=== PATIENT | female | born 1940 | race Caucasian/White ===

== ENCOUNTER → 2016-08-14 | Outpatient (CLI) | payer MEDICARE, BC ==
[2016-08-14 10:18] LABS: CHLORIDE,CL 105 mmol/L (98-110); SODIUM,NA 138 mmol/L (136-146)
== END ==
LOC: MW.CHIM 09:27
PROVIDERS: ATTEND Internal Medicine
DX: E78.5 Hyperlipidemia, unspecified (principal); E03.9 Hypothyroidism, unspecified; M81.0 Age-related osteoporosis without current pathological fracture; I38 Endocarditis, valve unspecified; E55.9 Vitamin D deficiency, unspecified
CPT/HCPCS: 36415; 80053; 80061; 82652; 84439; 84443; 85025

== ENCOUNTER → 2016-08-18 | Outpatient (CLI) | payer MEDICARE, BC | LOC: MW.CHIM 08:00 | PROVIDERS: ATTEND Internal Medicine | DX: E78.5 Hyperlipidemia, unspecified (principal); E03.9 Hypothyroidism, unspecified; M19.049 Primary osteoarthritis, unspecified hand; E67.3 Hypervitaminosis D | CPT/HCPCS: 99214 ==

== ENCOUNTER → 2016-09-22 | Outpatient (CLI) | payer MEDICARE, BC | LOC: MW.CHFP 08:00 | PROVIDERS: ATTEND Internal Medicine | DX: M81.0 Age-related osteoporosis without current pathological fracture (principal) | CPT/HCPCS: 96372; J0897 ==

== ENCOUNTER 2021-02-17 21:42 | Inpatient (IN) | payer MEDICARE, BC ==
[2021-02-17] MEDS ORDERED: Sodium Chloride 0.9% 2.5 ML Syringe FLUSH PRN (22:35)
[2021-02-17] MEDS ORDERED: Sodium Chloride 0.9% 10 ML Syringe FLUSH PRN (22:35)
[2021-02-17] MEDS ORDERED: Dexamethasone 10 MG/ML SDV IVPUSH ONE (22:35)
[2021-02-17] MEDS ORDERED: REMDESIVIR 200 MG in Sodium Chloride 0.9% 250 ML IV ONE (22:37)
[2021-02-17] MEDS ORDERED: Acetaminophen 325 MG Tab PO ONE (22:52)
[2021-02-17] MEDS ORDERED: Lactated Ringers 1,000 ML IV SCH (23:00)
[2021-02-17 23:22] LABS: BLOOD UREA NITROGEN,BUN 11 mg/dL (7.0-18.0); CARBON DIOXIDE,CO2 25.1 mmol/L (21.0-32.0); CHLORIDE,CL 96 mmol/L (98-107); GLUCOSE RANDOM 143 mg/dL (74-106); POTASSIUM,K 3.7 mmol/L (3.5-5.1); SODIUM,NA 135 mmol/L (136-145)
[2021-02-17] MEDS ORDERED: Iopamidol 755 Mg/ML 100 ML Bottle IVPUSH ONE (23:50)
--- NOTE | 2021-02-18 01:25 | CT ---
INDICATION: Shortness of breath. COVID-19 positive. COMPARISON: None available TECHNIQUE: CT examination of the chest was performed with the uneventful intravenous administration of 100 cc of Isovue 370 while 1 and 1.5 mm thick axial sections were obtained through the pulmonary arteries. Please note that all CT scans at this facility use dose modulation, iterative reconstruction, and/or weight-based dosing when appropriate to reduce radiation dose to as low as reasonably achievable. FINDINGS: : There is no sign of pulmonary embolism, with normal enhancement and branching of the pulmonary arteries. There are large, confluent, peripheral, ground-glass pulmonary infiltrates rather uniformly distributed throughout both lungs, typical of prominent COVID-19 pneumonia. There is somewhat denser consolidation in the posterior inferior lower lobes bilaterally, atelectasis versus superinfection from bacterial pneumonia. There is no sign of mediastinal or hilar mass or adenopathy. There is mild LAD coronary calcification. The heart is otherwise normal in appearance for the patient`s age. There is age appropriate appearance of the thoracic aorta and ascending great vessels. There is no sign of supraclavicular or axillary mass or adenopathy. There is a moderate-sized hiatal hernia. The visualized superior liver, spleen, pancreas, kidneys, and adrenals are normal in appearance. There is mild scoliosis of the mid thoracic spine convex towards the right. There is increased AP chest diameter related to increased kyphosis of the thoracic spine. IMPRESSION: No sign of pulmonary embolism. Prominent COVID-19 pneumonia with extensive, confluent, peripheral ground-glass infiltrates. Moderate-sized hiatal hernia. Please note that all CT scans at this facility use dose modulation, iterative reconstruction, and/or weight-based dosing when appropriate to reduce radiation dose to as low as reasonably achievable. Dictated by Dexter Rapp MD @ 02/18/2021 1:24:05 AM (Electronically Signed)
--- NOTE | 2021-02-18 01:25 | EDM.PDOC ---
ED HPI GENERAL MEDICAL PROBLEM - General Chief Complaint: Respiratory Problem Stated Complaint: COVID COMPLICATIONS Time Seen by Provider: 02/17/21 22:35 - History of Present Illness INITIAL COMMENTS - FREE TEXT/NARRATIVE: HISTORY AND PHYSICAL: History of present illness: This an 80-year-old female with no significant past medical history except for hypercholesterolemia and hypothyroid who presents to the ER today secondary to shortness of breath noted by her family. Patient was recently diagnosed approximately 5 days ago with coronavirus secondary to generalized weakness, decreased p.o. intake and loss of taste and smell. Patient reports that she has been feeling weak and tired and today she was brought into the ER secondary to her family's concern that she was more short of breath than usual. Patient reports that she feels slightly more short of breath than she normally does. Patient reports she has had no fevers, shakes, chills. She had nausea with no vomiting or diarrhea. Patient has any dysuria, frequency, urgency, chest pain, abdominal pain. Patient has any swelling to her upper or lower extremities. Patient denies any chest pressure or discomfort. Review of systems: As per history of present illness and below otherwise all systems reviewed and negative. Past medical history: As per history of present illness and as reviewed below otherwise noncontributory. Surgical history: As per history of present illness and as reviewed below otherwise noncontributory. Social history: No reported history of drug abuse. Family history: As per history of present illness and as reviewed below otherwise noncontributory. Physical exam: This patient was seen and evaluated during the 2019 SARS-CoV-2 novel coronavirus pandemic period. Community viral transmission is ongoing at time of this en counter and the emergency department is operating under pandemic response procedures. Constitutional: Patient is oriented to person, place, and time. Appears well- developed and well-nourished. No distress. HEENT: Dry mucous membranes Head: Normocephalic and atraumatic Eyes: Right eye exhibits no discharge. Left eye exhibits no discharge. No scleral icterus Neck: Normal range of motion. No tracheal deviation present. Cardiovascular: Normal rate and regular rhythm. Pulmonary: Effort normal, no respiratory distress. Abdominal: No distention Musculoskeletal: Normal range of motion Neurologic: Alert and oriented to person, place and time. Skin: Erhard, warm and dry. Psychiatric: Normal mood and affect. Behavior is normal. Judgment and thought content normal. Nursing note and vital signs have been reviewed Patient's temperature oral was 100.7. Diagnostics: Covid positive in the ED CBC, CMP, troponin within normal limits. CTA of chest: EKG: February 17, 2021 10:27 PM As interpreted by ER physician: Liu: Nonspecific ST-T wave abnormalities Normal axis No evidence of ST elevation NE Normal sinus rhythm heart rate of 100 Therapeutics: NSS x1 L secondary to extremely dry mucous membranes Assessment and plan: 80-year-old female who presents ER today after being diagnosed with Covid approximately 4 days ago secondary to increased shortness of breath is witnessed by family. Upon arrival to the ED the patient's pulse ox was 84 to 86% on room air. On 2 L of nasal cannula, the patient's pulse ox is up to 93 to 95%. Patient is febrile here in the ER with a temperature of 100.7. Patient's Covid test is positive here in the ER. Patient's labs are all within normal limits. Patient was given 1 L of NSS secondary to the presentation of severe dehydration which is likely secondary to decreased p.o. intake from her nausea and decreased appetite and loss of taste. Patient has also been given a dose of remdesivir and Decadron here in the ED and will need to be admitted for supplemental O2 and treatment with remdesivir. CTA of her chest obtained secondary to her low oxygen level L PE and pneumonia. Definitive disposition and diagnosis as appropriate pending reevaluation and review of above. - Related Data Allergies Allergy/AdvReac Type Severity Reaction Status Date / Time No Known Allergies Allergy Verified 08/14/13 09:23 Home Meds: Home Meds Aspirin 81 mg PO DAILY 02/17/21 [History] Levothyroxine 75 mcg PO ACBREAKFAST 02/17/21 [History] Lovastatin 40 mg PO DAILY 02/17/21 [History] Past Medical History Cardiovascular History: Reports: High Cholesterol, Hypertension [employer] History: Reports: Musculoskeletal History: Reports: Arthritis Social & Family History - Tobacco Use Tobacco Use Status *Q: Never Tobacco User Second Hand Smoke Exposure: No - Recreational Drug Use Recreational Drug Use: No ED ROS GENERAL - Review of Systems Review Of Systems: See Below ED EXAM, GENERAL - Physical Exam Exam: See Below Course - Vital Signs Last Recorded V/S: Last Vital Signs Temp 98.2 F 02/17/21 23:28 Pulse 91 02/18/21 01:23 Resp 20 02/18/21 01:23 BP 126/55 L 02/18/21 01:23 Pulse Ox 93 L 02/18/21 01:23 - Orders/Labs/Meds Orders: Active Orders 24 hr Category Date Time Status Patient Status [ADT] Routine ADT 02/18/21 01:29 Active BILIRUBIN DIRECT [CHEM] DAILY Lab 02/19/21 22:45 Ordered BILIRUBIN DIRECT [CHEM] DAILY Lab 02/20/21 22:45 Ordered BILIRUBIN DIRECT [CHEM] DAILY Lab 02/21/21 22:45 Ordered COMPREHENSIVE METABOLIC PN,CMP [CHEM] DAILY Lab 02/19/21 22:45 Ordered COMPREHENSIVE METABOLIC PN,CMP [CHEM] DAILY Lab 02/20/21 22:45 Ordered COMPREHENSIVE METABOLIC PN,CMP [CHEM] DAILY Lab 02/21/21 22:45 Ordered UA RFX JUANA AND CULT IF INDIC [URIN] Stat Lab 02/18/21 01:20 Received Lactated Ringers [Ringers, Lactated] 1,000 ml Med 02/17/21 23:00 Active IV .BOLUS Sodium Chloride 0.9% [Saline Flush] Med 02/17/21 22:35 Active 10 ml FLUSH ASDIRECTED PRN Sodium Chloride 0.9% [Saline Flush] Med 02/17/21 22:35 Active 2.5 ml FLUSH ASDIRECTED PRN Isolation [COMM] Routine Oth 02/17/21 22:36 Active Saline Lock Insert [OM.PC] Stat Oth 02/17/21 22:35 Ordered Medication Orders Lactated Ringer's (Ringers, Lactated) 1,000 mls @ 999 mls/hr IV .BOLUS MONIQUE Last Admin: 02/17/21 22:59 Dose: 999 mls/hr Documented by: CAROLINE Sodium Chloride (Sodium Chloride 0.9% 10 Ml Syringe) 10 ml FLUSH ASDIRECTED PRN PRN Reason: Keep Vein Open Last Admin: 02/17/21 22:52 Dose: 10 ml Documented by: CAROLINE Sodium Chloride (Sodium Chloride 0.9% 2.5 Ml Syringe) 2.5 ml FLUSH ASDIRECTED PRN PRN Reason: Keep Vein Open Last Admin: 02/17/21 22:53 Dose: 2.5 ml Documented by: CAROLINE Labs: Laboratory Tests 02/17/21 02/17/21 02/17/21 Range/Units 22:23 22:41 22:41 WBC 8.47 (4.0-11.0) K/uL RBC 4.63 (4.30-5.90) M/uL Hgb 14.6 (12.0-16.0) g/dL Hct 41.3 (36.0-46.0) % MCV 89.2 (80.0-98.0) fL MCH 31.5 (27.0-32.0) pg MCHC 35.4 (31.0-37.0) g/dL RDW Std Deviation 45.6 (28.0-62.0) fl RDW Coeff of Lorelei 14 (11.0-15.0) % Plt Count 204 (150-400) K/uL MPV 9.60 (7.40-12.00) fL Neut % (Auto) 80.9 H (48.0-80.0) % Lymph % (Auto) 11.5 L (16.0-40.0) % Bacon % (Auto) 7.4 (0.0-15.0) % Eos % (Auto) 0.0 (0.0-7.0) % Baso % (Auto) 0.2 (0.0-1.5) % Neut # (Auto) 6.9 H (1.4-5.7) K/uL Lymph # (Auto) 1.0 (0.6-2.4) K/uL Bacon # (Auto) 0.6 (0.0-0.8) K/uL Eos # (Auto) 0.0 (0.0-0.7) K/uL Baso # (Auto) 0.0 (0.0-0.1) K/uL Nucleated RBC % 0.0 /100WBC Nucleated RBCs # 0 K/uL Sodium (136-145) mmol/L Potassium (3.5-5.1) mmol/L Chloride (98-107) mmol/L Carbon Dioxide (21.0-32.0) mmol/L BUN (7.0-18.0) mg/dL Creatinine (0.6-1.0) mg/dL Est Cr Clr Drug Dosing mL/min Estimated GFR (MDRD) ml/min Glucose (74-106) mg/dL Calcium (8.5-10.1) mg/dL Total Bilirubin (0.2-1.0) mg/dL Direct Bilirubin (0.0-0.5) mg/dL AST (15-37) IU/L ALT (14-63) IU/L Alkaline Phosphatase (46-116) U/L Troponin I < 0.050 (0.000-0.056) ng/mL Total Protein (6.4-8.2) g/dL Albumin (3.4-5.0) g/dL Globulin (2.6-4.0) g/dL Albumin/Globulin Ratio (0.9-1.6) SARS-CoV-2 RNA (BRE) POSITIVE H (NEGATIVE) 02/17/21 Range/Units 22:41 WBC (4.0-11.0) K/uL RBC (4.30-5.90) M/uL Hgb (12.0-16.0) g/dL Hct (36.0-46.0) % MCV (80.0-98.0) fL MCH (27.0-32.0) pg MCHC (31.0-37.0) g/dL RDW Std Deviation (28.0-62.0) fl RDW Coeff of Lorelei (11.0-15.0) % Plt Count (150-400) K/uL MPV (7.40-12.00) fL Neut % (Auto) (48.0-80.0) % Lymph % (Auto) (16.0-40.0) % Bacon % (Auto) (0.0-15.0) % Eos % (Auto) (0.0-7.0) % Baso % (Auto) (0.0-1.5) % Neut # (Auto) (1.4-5.7) K/uL Lymph # (Auto) (0.6-2.4) K/uL Bacon # (Auto) (0.0-0.8) K/uL Eos # (Auto) (0.0-0.7) K/uL Baso # (Auto) (0.0-0.1) K/uL Nucleated RBC % /100WBC Nucleated RBCs # K/uL Sodium 135 L (136-145) mmol/L Potassium 3.7 (3.5-5.1) mmol/L Chloride 96 L (98-107) mmol/L Carbon Dioxide 25.1 (21.0-32.0) mmol/L BUN 11 (7.0-18.0) mg/dL Creatinine 0.7 (0.6-1.0) mg/dL Est Cr Clr Drug Dosing 49.85 mL/min Estimated GFR (MDRD) > 60.0 ml/min Glucose 143 H (74-106) mg/dL Calcium 7.6 L (8.5-10.1) mg/dL Total Bilirubin 0.9 (0.2-1.0) mg/dL Direct Bilirubin 0.30 (0.0-0.5) mg/dL AST 168 H (15-37) IU/L ALT 110 H (14-63) IU/L Alkaline Phosphatase 41 L (46-116) U/L Troponin I (0.000-0.056) ng/mL Total Protein 6.3 L (6.4-8.2) g/dL Albumin 2.8 L (3.4-5.0) g/dL Globulin 3.5 (2.6-4.0) g/dL Albumin/Globulin Ratio 0.8 L (0.9-1.6) SARS-CoV-2 RNA (BRE) (NEGATIVE) Meds: Medications Generic Name Dose Route Start Last Admin Trade Name Freq PRN Reason Stop Dose Admin Lactated Ringer's 1,000 mls @ 999 mls/hr 02/17/21 23:00 02/17/21 22:59 Ringers, Lactated IV 999 mls/hr .BOLUS MONIQUE Administration Sodium Chloride 10 ml 02/17/21 22:35 02/17/21 22:52 Sodium Chloride 0.9% 10 Ml Syringe FLUSH 10 ml ASDIRECTED PRN Administration Keep Vein Open Sodium Chloride 2.5 ml 02/17/21 22:35 02/17/21 22:53 Sodium Chloride 0.9% 2.5 Ml Syringe FLUSH 2.5 ml ASDIRECTED PRN Administration Keep Vein Open Discontinued Medications Generic Name Dose Route Start Last Admin Trade Name Freq PRN Reason Stop Dose Admin Acetaminophen 650 mg 02/17/21 22:52 02/17/21 22:58 Acetaminophen 325 Mg Tab PO 02/17/21 22:53 650 mg NOW ONE Administration Dexamethasone 10 mg 02/17/21 22:35 02/17/21 22:57 Dexamethasone 10 Mg/Ml Sdv IVPUSH 02/17/21 22:36 10 mg ONETIME ONE Administration Remdesivir 200 mg/ Sodium 250 mls @ 250 mls/hr 02/17/21 22:37 02/17/21 23:15 Chloride IV 02/17/21 22:38 250 mls/hr ONETIME ONE Administration Iopamidol 100 ml 02/17/21 23:50 02/18/21 00:44 Iopamidol 755 Mg/Ml 100 Ml Bottle IVPUSH 02/17/21 23:51 100 ml ONETIME ONE Administration Departure - Departure Time of Disposition: 01:25 Disposition: Admitted As Inpatient 65 Condition: Good Clinical Impression: Pneumonia due to COVID-19 virus, Respiratory failure with hypoxia, Dehydration - Discharge Information [facility] - Forms: ED Department Discharge Sepsis Event Note (ED) - Evaluation Sepsis Screening Result: No Definite Risk - Focused Exam Vital Signs: Vital Signs Temp Temp Pulse Resp BP Pulse Ox 02/18/21 01:23 91 20 126/55 L 93 L 02/17/21 23:28 98.2 F 02/17/21 22:58 100.9 F H 02/17/21 22:12 97.7 F 101 H 20 133/52 L 94 L - My Orders Last 24 Hours: My Active Orders 02/17/21 22:35 Sodium Chloride 0.9% [Saline Flush] 10 ml FLUSH ASDIRECTED PRN Sodium Chloride 0.9% [Saline Flush] 2.5 ml FLUSH ASDIRECTED PRN Saline Lock Insert [OM.PC] Stat 02/17/21 22:36 Isolation [COMM] Routine 02/17/21 23:00 Lactated Ringers [Ringers, Lactated] 1,000 ml IV .BOLUS 02/18/21 01:20 UA RFX JUANA AND CULT IF INDIC [URIN] Stat 02/18/21 01:29 Patient Status [ADT] Routine 02/19/21 22:45 BILIRUBIN DIRECT [CHEM] DAILY COMPREHENSIVE METABOLIC PN,CMP [CHEM] DAILY 02/20/21 22:45 BILIRUBIN DIRECT [CHEM] DAILY COMPREHENSIVE METABOLIC PN,CMP [CHEM] DAILY 02/21/21 22:45 BILIRUBIN DIRECT [CHEM] DAILY COMPREHENSIVE METABOLIC PN,CMP [CHEM] DAILY - Assessment/Plan Last 24 Hours: My Active Orders 02/17/21 22:35 Sodium Chloride 0.9% [Saline Flush] 10 ml FLUSH ASDIRECTED PRN Sodium Chloride 0.9% [Saline Flush] 2.5 ml FLUSH ASDIRECTED PRN Saline Lock Insert [OM.PC] Stat 02/17/21 22:36 Isolation [COMM] Routine 02/17/21 23:00 Lactated Ringers [Ringers, Lactated] 1,000 ml IV .BOLUS 02/18/21 01:20 UA RFX JUANA AND CULT IF INDIC [URIN] Stat 02/18/21 01:29 Patient Status [ADT] Routine 02/19/21 22:45 BILIRUBIN DIRECT [CHEM] DAILY COMPREHENSIVE METABOLIC PN,CMP [CHEM] DAILY 02/20/21 22:45 BILIRUBIN DIRECT [CHEM] DAILY COMPREHENSIVE METABOLIC PN,CMP [CHEM] DAILY 02/21/21 22:45 BILIRUBIN DIRECT [CHEM] DAILY COMPREHENSIVE METABOLIC PN,CMP [CHEM] DAILY
[2021-02-18] MEDS ORDERED: guaiFENesin/Dextromethorphan 100-10 MG/5 ML Soln 10 ML Cup PO PRN (02:21)
[2021-02-18] MEDS ORDERED: Ondansetron 4 MG/2 ML SDV IVPUSH PRN (02:24)
[2021-02-18] MEDS: Albuterol/Ipratropium 4 GM Inhalation Spray INH SCH ×5 (04:47→19:18)
[2021-02-18 06:56] LABS: BLOOD UREA NITROGEN,BUN 9 mg/dL (7.0-18.0); CHLORIDE,CL 101 mmol/L (98-107); GLUCOSE RANDOM 180 mg/dL (74-106); POTASSIUM,K 3.6 mmol/L (3.5-5.1); SODIUM,NA 137 mmol/L (136-145)
--- NOTE | 2021-02-18 07:06 | PCM.HP.2 ---
<Cynthia Calvillo - Last Filed: 02/18/21 10:54> H&P History of Present Illness - General Date of Service: 02/18/21 Admit Problem/Dx: Admission Diagnosis/Problem Admission Diagnosis/Problem Respiratory failure with hypoxia - History of Present Illness Initial Comments - Free Text/Narative: 80-year-old female with a history of hypothyroidism presented to the ER with shortness of breath. She lives at [place]. Her family noticed increased shortness of breath. Patient was diagnosed 5 days ago with COVID-19. She experienced generalized weakness, decreased oral intake, and loss of taste and smell. She had nausea but no vomiting or diarrhea. She was brought to the ER by her son Jose with concerns of increasing shortness of breath. Patient denied fever, chills, chest pain, palpitations, abdominal pain, dysuria, frequency, pain or swelling in her lower extremities. Patient denies smoking. Patient is not vaccinated for COVID-19. ED course: Temperature 100.7. Pulse 91. Respiratory rate 20. Blood pressure 126/55. Pulse ox 84%. Patient placed on 4.5 L nasal cannula and oxygen saturation was 91%. Patient received 1 L of lactated Ringer's due to dry mucous membranes. WBC 8.47. Hgb 14.6. Platelets 204. Sodium 135. Potassium 3.7. Chloride 96. Bicarb 25.1. BUN 11. Creatinine 0.7. Glucose 143. Calcium 7.6. AST 160. ALT 110. Alk phos 41. Troponin negative. SARS-CoV-2 positive. CTA chest: No pulmonary embolism. Prominent Covid pneumonia. EKG showed nonsp ecific STT wave abnormalities. Normal axis. No evidence of ST elevation [place]. Normal sinus rhythm. Urinalysis showed leukocyte esterase positive. Patient received first dose of remdesivir and Decadron. Past medical history: Hypercholesterolemia, hypothyroidism. Medications: Aspirin 81 mg daily. Levothyroxine 75 mcg daily. Lovastatin 40 mg daily. Allergies: No known drug allergies. Social history: Patient denies smoking. Patient is and lives at [place] living [facility]. CODE STATUS: Full code. - Related Data Allergies/Adverse Reactions: Allergies Allergy/AdvReac Type Severity Reaction Status Date / Time No Known Allergies Allergy Verified 08/14/13 09:23 Home Medications: Home Meds Aspirin 81 mg PO DAILY 02/17/21 [History] Levothyroxine 75 mcg PO ACBREAKFAST 02/17/21 [History] Lovastatin 40 mg PO BEDTIME 02/17/21 [History] Past Medical History Cardiovascular History: Reports: High Cholesterol, Hypertension [employer] History: Reports: Musculoskeletal History: Reports: Arthritis - Infectious Disease History Infectious Disease History: Reports: Chicken Pox, Measles, Mumps, Shingles Social & Family History - Tobacco Use Tobacco Use Status *Q: Never Tobacco User Second Hand Smoke Exposure: No - Caffeine Use Caffeine Use: Reports: Coffee Other Caffeine Use: 6 per day - Recreational Drug Use Recreational Drug Use: No H&P Review of Systems - Review of Systems: Review Of Systems: See Below General: Denies: Fever, Chills HEENT: Denies: Headaches, Sinus Congestion, Sore Throat Pulmonary: Reports: Shortness of Breath, Cough. Denies: Wheezing, Pleuritic Chest Pain Cardiovascular: Denies: Chest Pain, Palpitations, Edema Gastrointestinal: Reports: Decreased Appetite. Denies: Abdominal Pain, Constipation, Diarrhea Genitourinary: Denies: Dysuria, Frequency, Burning Musculoskeletal: Denies: Leg Pain Skin: Denies: Cyanosis Neurological: Denies: Dizziness, Headache Exam - Exam Exam: See Below - Vital Signs Vital Signs: Last Vital Signs Temp 99 F 02/18/21 02:52 Pulse 91 02/18/21 02:52 Resp 22 H 02/18/21 02:52 BP 107/49 L 02/18/21 02:52 Pulse Ox 91 L 02/18/21 02:52 Weight: 64.229 kg - Exam General: Alert, Cooperative, Other (Slowed mentation.) HEENT: Conjunctiva Clear, Mucosa Moist & [place], Pupils Equal, Pupils Reactive Neck: Supple, Trachea Midline Lungs: Decreased Breath Sounds, Rales Cardiovascular: Regular Rate, Regular Rhythm GI/Abdominal Exam: Normal Bowel Sounds, Soft, Non-Tender Back Exam: No: CVA Tenderness (L), CVA Tenderness (R) Extremities: No Pedal Edema. No: Rick's Sign, Leg Pain Peripheral Pulses: 2+: Dorsalis Pedis (L), Dorsalis Pedis (R) Skin: Warm, Dry, Intact Neuro Extensive - Mental Status: Alert - Patient Data Lab Results Last 24 hrs: Laboratory Results - last 24 hr 02/17/21 02/17/2102/17/21 Range/Units 22:23 22:41 22:41 WBC 8.47 (4.0-11.0) K/uL RBC 4.63 (4.30-5.90) M/uL Hgb 14.6 (12.0-16.0) g/dL Hct 41.3 (36.0-46.0) % MCV 89.2 (80.0-98.0) fL MCH 31.5 (27.0-32.0) pg MCHC 35.4 (31.0-37.0) g/dL RDW Std Deviation 45.6 (28.0-62.0) fl RDW Coeff of Lorelei 14 (11.0-15.0) % Plt Count 204 (150-400) K/uL MPV 9.60 (7.40-12.00) fL Neut % (Auto) 80.9 H (48.0-80.0) % Lymph % (Auto) 11.5 L (16.0-40.0) % [place] % (Auto) 7.4 (0.0-15.0) % Eos % (Auto) 0.0 (0.0-7.0) % Baso % (Auto) 0.2 (0.0-1.5) % Neut # (Auto) 6.9 H (1.4-5.7) K/uL Lymph # (Auto) 1.0 (0.6-2.4) K/uL [place] # (Auto) 0.6 (0.0-0.8) K/uL Eos # (Auto) 0.0 (0.0-0.7) K/uL Baso # (Auto) 0.0 (0.0-0.1) K/uL Nucleated RBC % 0.0 /100WBC Nucleated RBCs # 0 K/uL Sodium (136-145) mmol/L Potassium (3.5-5.1) mmol/L Chloride (98-107) mmol/L Carbon Dioxide (21.0-32.0) mmol/L BUN (7.0-18.0) mg/dL Creatinine (0.6-1.0) mg/dL Est Cr Clr Drug Dosing mL/min Estimated GFR (MDRD) ml/min Glucose (74-106) mg/dL Calcium (8.5-10.1) mg/dL Total Bilirubin (0.2-1.0) mg/dL Direct Bilirubin (0.0-0.5) mg/dL AST (15-37) IU/L ALT (14-63) IU/L Alkaline Phosphatase (46-116) U/L Troponin I < 0.050 (0.000-0.056) ng/mL Total Protein (6.4-8.2) g/dL Albumin (3.4-5.0) g/dL Globulin (2.6-4.0) g/dL Albumin/Globulin Ratio (0.9-1.6) Urine Color Urine Appearance Urine pH (5.0-8.0) Ur Specific [place] (1.001-1.035) Urine Protein (NEGATIVE) mg/dL Urine Glucose (UA) (NEGATIVE) mg/dL Urine Ketones (NEGATIVE) mg/dL Urine Occult Blood (NEGATIVE) Urine Nitrite (NEGATIVE) Urine Bilirubin (NEGATIVE) Urine Urobilinogen (<2.0) EU/dL Ur Leukocyte Esterase (NEGATIVE) Urine RBC (0-2/HPF) Urine WBC (0-5/HPF) Ur Epithelial Cells (NONE-FEW) Urine Bacteria (NEGATIVE) SARS-CoV-2 RNA (BRE) POSITIVE H (NEGATIVE) 02/17/21 02/18/21 02/18/21 Range/Units 22:41 01:20 06:02 WBC (4.0-11.0) K/uL RBC (4.30-5.90) M/uL Hgb (12.0-16.0) g/dL Hct (36.0-46.0) % MCV (80.0-98.0) fL MCH (27.0-32.0) pg MCHC (31.0-37.0) g/dL RDW Std Deviation (28.0-62.0) fl RDW Coeff of Lorelei (11.0-15.0) % Plt Count (150-400) K/uL MPV (7.40-12.00) fL Neut % (Auto) (48.0-80.0) % Lymph % (Auto) (16.0-40.0) % [place] % (Auto) (0.0-15.0) % Eos % (Auto) (0.0-7.0) % Baso % (Auto) (0.0-1.5) % Neut # (Auto) (1.4-5.7) K/uL Lymph # (Auto) (0.6-2.4) K/uL [place] # (Auto) (0.0-0.8) K/uL Eos # (Auto) (0.0-0.7) K/uL Baso # (Auto) (0.0-0.1) K/uL Nucleated RBC % /100WBC Nucleated RBCs # K/uL Sodium 135 L 137 (136-145) mmol/L Potassium 3.7 3.6 (3.5-5.1) mmol/L Chloride 96 L 101 (98-107) mmol/L Carbon Dioxide 25.1 25.0 (21.0-32.0) mmol/L BUN 11 9 (7.0-18.0) mg/dL Creatinine 0.7 0.7 (0.6-1.0) mg/dL Est Cr Clr Drug Dosing 49.85 49.85 mL/min Estimated GFR (MDRD) > 60.0 > 60.0 ml/min Glucose 143 H 180 H (74-106) mg/dL Calcium 7.6 L 7.2 L (8.5-10.1) mg/dL Total Bilirubin 0.9 0.6 (0.2-1.0) mg/dL Direct Bilirubin 0.30 (0.0-0.5) mg/dL AST 168 H 156 H (15-37) IU/L ALT 110 H 114 H (14-63) IU/L Alkaline Phosphatase 41 L 40 L (46-116) U/L Troponin I (0.000-0.056) ng/mL Total Protein 6.3 L 5.7 L (6.4-8.2) g/dL Albumin 2.8 L 2.4 L (3.4-5.0) g/dL Globulin 3.5 3.3 (2.6-4.0) g/dL Albumin/Globulin Ratio 0.8 L 0.7 L (0.9-1.6) Urine Color YELLOW Urine Appearance SLT CLOUDY Urine pH 7.0 (5.0-8.0) Ur Specific [place] 1.010 (1.001-1.035) Urine Protein TRACE H (NEGATIVE) mg/dL Urine Glucose (UA) NEGATIVE (NEGATIVE) mg/dL Urine Ketones TRACE H (NEGATIVE) mg/dL Urine Occult Blood TRACE-INTACT H (NEGATIVE) Urine Nitrite NEGATIVE (NEGATIVE) Urine Bilirubin NEGATIVE (NEGATIVE) Urine Urobilinogen 4.0 H (<2.0) EU/dL Ur Leukocyte Esterase LARGE H (NEGATIVE) Urine RBC 1-3 (0-2/HPF) Urine WBC 15-25 (0-5/HPF) Ur Epithelial Cells FEW (NONE-FEW) Urine Bacteria FEW (NEGATIVE) SARS-CoV-2 RNA (BRE) (NEGATIVE) Result Diagrams: 02/18/21 06:02 02/18/21 06:02 Srikanth Results Last 24 hrs: Microbiology 02/17/21 22:23 Influenza Type A Antigen Screen - Final Nasopharyngeal Swab NEGATIVE INFLUENZA A VIRUS AG REFERENCE RANGE: NEGATIVE Influenza Type B Antigen Screen - Final NEGATIVE INFLUENZA B VIRUS AG REFERENCE RANGE: NEGATIVE Sepsis Event Note - Evaluation Sepsis Screening Result: No Definite Risk - Focused Exam Vital Signs: Vital Signs Temp Temp Pulse Resp BP Pulse Ox Pulse Ox 02/18/21 02:52 99 F 91 22 H 107/49 L 91 L 02/18/21 02:45 91 L 91 L 02/18/21 02:18 91 L 02/18/21 01:23 91 20 126/55 L 93 L 02/17/21 23:28 98.2 F 02/17/21 22:58 100.9 F H 02/17/21 22:12 97.7 F 101 H 20 133/52 L 94 L - Problem List (1) UTI (urinary tract infection) SNOMED Code(s): 45012434 ICD Code: N39.0 - URINARY TRACT INFECTION, SITE NOT SPECIFIED Status: Acute Current Visit: Yes (2) Pneumonia due to COVID-19 virus SNOMED Code(s): 178804047688143757 ICD Code: U07.1 - COVID-19; J12.82 - PNEUMONIA DUE TO CORONAVIRUS DISEASE 2018 Status: Acute Current Visit: Yes Problem List Initiated/Reviewed/Updated: Yes Orders Last 24hrs: Active Orders 24 hr Category Date Time Status Patient Status [ADT] Routine ADT 02/18/21 01:29 Active Antiembolic Devices [RC] PER UNIT ROUTINE Care 02/18/21 02:21 Active Oxygen Therapy Adult [Oxygen Therapy] [RC] ASDIRECTED Care 02/18/21 02:18 Active Pulse Oximetry [RC] ASDIRECTED Care 02/18/21 02:18 Active RT Aerosol Therapy [RC] ASDIRECTED Care 02/18/21 02:20 Active RT Post Treatment Assessment [RC] Click to Edit Care 02/18/21 02:19 Active RT Pre-Treatment Assessment [RC] Click to Edit Care 02/18/21 02:19 Active Telemetry Monitoring [Cardiac Monitoring] [RC] Q8H Care 02/18/21 02:11 Active Vital Signs [RC] Q4H Care 02/18/21 02:17 Active Heart Healthy Diet [DIET] Diet 02/18/21 Breakfast Active BILIRUBIN DIRECT [CHEM] DAILY Lab 02/19/21 22:45 Ordered BILIRUBIN DIRECT [CHEM] DAILY Lab 02/20/21 22:45 Ordered BILIRUBIN DIRECT [CHEM] DAILY Lab 02/21/21 22:45 Ordered CBC WITH AUTO DIFF [HEME] Routine Lab 02/18/21 06:02 Received COMPREHENSIVE METABOLIC PN,CMP [CHEM] DAILY Lab 02/19/21 22:45 Ordered COMPREHENSIVE METABOLIC PN,CMP [CHEM] DAILY Lab 02/20/21 22:45 Ordered COMPREHENSIVE METABOLIC PN,CMP [CHEM] DAILY Lab 02/21/21 22:45 Ordered CULTURE URINE [MREF] Stat Lab 02/18/21 01:20 Received Acetaminophen [TylenoL] Med 02/18/21 02:27 Active 650 mg PO Q4H PRN Albuterol/Ipratropium [Combivent Respimat] Med 02/18/21 04:00 Active See Dose Instructions INH Q4H Albuterol/Ipratropium [DuoNeb 3.0-0.5 MG/3 ML] Med 02/18/21 02:20 Active 3 ml NEB Q4HRRT PRN Dextromethorphan/guaiFENesin [Robitussin DM] Med 02/18/21 02:21 Active 10 ml PO Q4H PRN Enoxaparin [Lovenox] Med 02/18/21 09:00 Active 40 mg SUBCUT DAILY Lactated Ringers [Ringers, Lactated] 1,000 ml Med 02/17/21 23:00 Active IV .BOLUS Ondansetron [Zofran] Med 02/18/21 02:24 Active 4 mg IVPUSH Q4H PRN Pantoprazole [ProTONIX IV] 40 mg Med 02/18/21 09:00 Active Sodium Chloride 0.9% [Normal Saline] 10 ml IV DAILY Remdesivir 100 mg Med 02/18/21 22:00 Active Sodium Chloride 0.9% [Normal Saline] 100 ml IV Q24H Sodium Chloride 0.9% [Saline Flush] Med 02/17/21 22:35 Active 10 ml FLUSH ASDIRECTED PRN Sodium Chloride 0.9% [Saline Flush] Med 02/17/21 22:35 Active 2.5 ml FLUSH ASDIRECTED PRN cefTRIAXone [Rocephin in Dextrose,Iso-Osm 1 GM/50 ML] 1 Med 02/18/21 09:00 Active gm Premix Bag 1 bag IV Q24H dexAMETHasone Med 02/18/21 09:00 Active 6 mg PO DAILY Isolation [COMM] Routine Oth 02/17/21 22:36 Active SCD [Sequential Compression Device] [OM.PC] Routine Oth 02/18/21 02:21 Ordered Saline Lock Insert [OM.PC] Stat Oth 02/17/21 22:35 Ordered Medication Orders Acetaminophen (Acetaminophen 325 Mg Tab) 650 mg PO Q4H PRN PRN Reason: Pain/Fever Albuterol/Ipratropium (Albuterol/Ipratropium 4 Gm Inhalation Kelly) 0 gm INH Q4H MONIQUE Last Admin: 02/18/21 04:47 Dose: Not Given Documented by: UCHE Albuterol/Ipratropium (Albuterol/Ipratropium 3.0-0.5 Mg/3 Ml Neb Soln) 3 ml NEB Q4HRRT PRN PRN Reason: Shortness of Breath Dexamethasone (Dexamethasone 4 Mg Tab) 6 mg PO DAILY [facility] Enoxaparin Sodium (Enoxaparin 40 Mg/0.4 Ml Syringe) 40 mg SUBCUT DAILY [facility] Guaifenesin/Dextromethorphan (Guaifenesin/Dextromethorphan 100-10 Mg/5 Ml Soln 10 Ml Cup) 10 ml PO Q4H PRN PRN Reason: Cough Lactated Ringer's (Ringers, Lactated) 1,000 mls @ 999 mls/hr IV .BOLUS [facility] Last Admin: 02/17/21 22:59 Dose: 999 mls/hr Documented by: CAROLINE Remdesivir 100 mg/ Sodium (Chloride) 100 mls @ 100 mls/hr IV Q24H MONIQUE Stop: 02/21/21 22:59 Pantoprazole Sodium 40 mg/ (Sodium Chloride) 10 mls @ 300 mls/hr IV DAILY MONIQUE Ceftriaxone Sodium/Dextrose 1 (gm/ Premix) 50 mls @ 100 mls/hr IV Q24H MONIQUE Ondansetron HCl (Ondansetron 4 Mg/2 Ml Sdv) 4 mg IVPUSH Q4H PRN PRN Reason: Nausea/Vomiting Sodium Chloride (Sodium Chloride 0.9% 10 Ml Syringe) 10 ml FLUSH ASDIRECTED PRN PRN Reason: Keep Vein Open Last Admin: 02/17/21 22:52 Dose: 10 ml Documented by: CAROLINE Sodium Chloride (Sodium Chloride 0.9% 2.5 Ml Syringe) 2.5 ml FLUSH ASDIRECTED PRN PRN Reason: Keep Vein Open Last Admin: 02/17/21 22:53 Dose: 2.5 ml Documented by: CAROLINE Assessment/Plan Comment:: Covid pneumonia: Patient received first dose of remdesivir. Patient will receive total of 5 days, last dose 02/21/2021. Dexamethasone 6 mg daily. Lovenox 40 mg daily. Duo nebs. Combivent. Dextromethorphan/penicillin. Zofran 4 mg. Pantoprazole 40 mg. Acetaminophen 650 mg as needed. Oxygen therapy. Wean as tolerated. Urinary tract infection: Patient is receiving ceftriaxone 1 g daily. <Joyce Tripp - Last Filed: 02/18/21 23:22> H&P History of Present Illness - General Admit Problem/Dx: Admission Diagnosis/Problem Admission Diagnosis/Problem Respiratory failure with hypoxia Exam - Vital Signs Vital Signs: Last Vital Signs Temp 36.7 C 02/18/21 19:17 Pulse 105 H 02/18/21 19:17 Resp 20 02/18/21 19:17 BP 126/85 02/18/21 19:17 Pulse Ox 91 L 02/18/21 19:17 - Patient Data Lab Results Last 24 hrs: Laboratory Results - last 24 hr 02/17/21 02/17/21 02/18/21 Range/Units 22:41 22:41 01:20 WBC (4.0-11.0) K/uL RBC (4.30-5.90) M/uL Hgb (12.0-16.0) g/dL Hct (36.0-46.0) % MCV (80.0-98.0) fL MCH (27.0-32.0) pg MCHC (31.0-37.0) g/dL RDW Std Deviation (28.0-62.0) fl RDW Coeff of [place] (11.0-15.0) % Plt Count (150-400) K/uL MPV (7.40-12.00) fL Add Manual Diff Neutrophils % (Manual) (48.0-80.0) % Band Neutrophils % % Lymphocytes % (Manual) (16.0-40.0) % Monocytes % (Manual) (0.0-15.0) % Nucleated RBC % /100WBC Absolute Seg Neuts (1.4-5.7) Band Neutrophils # Lymphocytes # (Manual) (0.6-2.4) Monocytes # (Manual) (0.0-0.8) Nucleated RBCs # K/uL Sodium 135 L (136-145) mmol/L Potassium 3.7 (3.5-5.1) mmol/L Chloride 96 L (98-107) mmol/L Carbon Dioxide 25.1 (21.0-32.0) mmol/L BUN 11 (7.0-18.0) mg/dL Creatinine 0.7 (0.6-1.0) mg/dL Est Cr Clr Drug Dosing 49.85 mL/min Estimated GFR (MDRD) > 60.0 ml/min Glucose 143 H (74-106) mg/dL Calcium 7.6 L (8.5-10.1) mg/dL Total Bilirubin 0.9 (0.2-1.0) mg/dL Direct Bilirubin 0.30 (0.0-0.5) mg/dL AST 168 H (15-37) IU/L ALT 110 H (14-63) IU/L Alkaline Phosphatase 41 L (46-116) U/L Troponin I < 0.050 (0.000-0.056) ng/mL Total Protein 6.3 L (6.4-8.2) g/dL Albumin 2.8 L (3.4-5.0) g/dL Globulin 3.5 (2.6-4.0) g/dL Albumin/Globulin Ratio 0.8 L (0.9-1.6) Urine Color YELLOW Urine Appearance SLT CLOUDY Urine pH 7.0 (5.0-8.0) Ur Specific [place] 1.010 (1.001-1.035) Urine Protein TRACE H (NEGATIVE) mg/dL Urine Glucose (UA) NEGATIVE (NEGATIVE) mg/dL Urine Ketones TRACE H (NEGATIVE) mg/dL Urine Occult Blood TRACE-INTACT H (NEGATIVE) Urine Nitrite NEGATIVE (NEGATIVE) Urine Bilirubin NEGATIVE (NEGATIVE) Urine Urobilinogen 4.0 H (<2.0) EU/dL Ur Leukocyte Esterase LARGE H (NEGATIVE) Urine RBC 1-3 (0-2/HPF) Urine WBC 15-25 (0-5/HPF) Ur Epithelial Cells FEW (NONE-FEW) Urine Bacteria FEW (NEGATIVE) 02/18/21 02/18/21 Range/Units 06:02 06:02 WBC 6.32 (4.0-11.0) K/uL RBC 4.47 (4.30-5.90) M/uL Hgb 13.8 (12.0-16.0) g/dL Hct 39.9 (36.0-46.0) % MCV 89.3 (80.0-98.0) fL MCH 30.9 (27.0-32.0) pg MCHC 34.6 (31.0-37.0) g/dL RDW Std Deviation 45.5 (28.0-62.0) fl RDW Coeff of [place] 14 (11.0-15.0) % Plt Count 215 (150-400) K/uL MPV 10.00 (7.40-12.00) fL Add Manual Diff YES Neutrophils % (Manual) 81 H (48.0-80.0) % Band Neutrophils % 7 % Lymphocytes % (Manual) 7 L (16.0-40.0) % Monocytes % (Manual) 5 (0.0-15.0) % Nucleated RBC % 0.0 /100WBC Absolute Seg Neuts 5.1 (1.4-5.7) Band Neutrophils # 0.4 Lymphocytes # (Manual) 0.4 L (0.6-2.4) Monocytes # (Manual) 0.3 (0.0-0.8) Nucleated RBCs # 0 K/uL Sodium 137 (136-145) mmol/L Potassium 3.6 (3.5-5.1) mmol/L Chloride 101 (98-107) mmol/L Carbon Dioxide 25.0 (21.0-32.0) mmol/L BUN 9 (7.0-18.0) mg/dL Creatinine 0.7 (0.6-1.0) mg/dL Est Cr Clr Drug Dosing 49.85 mL/min Estimated GFR (MDRD) > 60.0 ml/min Glucose 180 H (74-106) mg/dL Calcium 7.2 L (8.5-10.1) mg/dL Total Bilirubin 0.6 (0.2-1.0) mg/dL Direct Bilirubin (0.0-0.5) mg/dL AST 156 H (15-37) IU/L ALT 114 H (14-63) IU/L Alkaline Phosphatase 40 L (46-116) U/L Troponin I (0.000-0.056) ng/mL Total Protein 5.7 L (6.4-8.2) g/dL Albumin 2.4 L (3.4-5.0) g/dL Globulin 3.3 (2.6-4.0) g/dL Albumin/Globulin Ratio 0.7 L (0.9-1.6) Urine Color Urine Appearance Urine pH (5.0-8.0) Ur Specific [place] (1.001-1.035) Urine Protein (NEGATIVE) mg/dL Urine Glucose (UA) (NEGATIVE) mg/dL Urine Ketones (NEGATIVE) mg/dL Urine Occult Blood (NEGATIVE) Urine Nitrite (NEGATIVE) Urine Bilirubin (NEGATIVE) Urine Urobilinogen (<2.0) EU/dL Ur Leukocyte Esterase (NEGATIVE) Urine RBC (0-2/HPF) Urine WBC (0-5/HPF) Ur Epithelial Cells (NONE-FEW) Urine Bacteria (NEGATIVE) Result Diagrams: 02/18/21 06:02 02/18/21 06:02 Srikanth Results Last 24 hrs: Microbiology 02/17/21 22:23 Influenza Type A Antigen Screen - Final Nasopharyngeal Swab NEGATIVE INFLUENZA A VIRUS AG REFERENCE RANGE: NEGATIVE Influenza Type B Antigen Screen - Final NEGATIVE INFLUENZA B VIRUS AG REFERENCE RANGE: NEGATIVE Sepsis Event Note - Focused Exam Vital Signs: Vital Signs Temp Pulse Resp BP Pulse Ox 02/18/21 19:17 36.7 C 105 H 20 126/85 91 L 02/18/21 15:49 36.7 C 86 22 H 117/39 L 95 02/18/21 11:47 37.1 C 98 90 H 126/62 6 L Orders Last 24hrs: Active Orders 24 hr Category Date Time Status Patient Status [ADT] Routine ADT 02/18/21 01:29 Active Antiembolic Devices [RC] PER UNIT ROUTINE Care 02/18/21 02:21 Active Oxygen Therapy Adult [Oxygen Therapy] [RC] ASDIRECTED Care 02/18/21 02:18 Active Pulse Oximetry [RC] ASDIRECTED Care 02/18/21 02:18 Active RT Aerosol Therapy [RC] ASDIRECTED Care 02/18/21 02:20 Active RT Post Treatment Assessment [RC] Click to Edit Care 02/18/21 02:19 Active RT Pre-Treatment Assessment [RC] Click to Edit Care 02/18/21 02:19 Active Telemetry Monitoring [Cardiac Monitoring] [RC] Q8H Care 02/18/21 02:11 Active Vital Signs [RC] Q4H Care 02/18/21 02:17 Active Heart Healthy Diet [DIET] Diet 02/18/21 Breakfast Active CBC WITH AUTO DIFF [HEME] DAILY Lab 02/19/21 05:11 Ordered CBC WITH AUTO DIFF [HEME] DAILY Lab 02/20/21 05:11 Ordered CBC WITH AUTO DIFF [HEME] DAILY Lab 02/21/21 05:11 Ordered CBC WITH AUTO DIFF [HEME] DAILY Lab 02/22/21 05:11 Ordered CBC WITH AUTO DIFF [HEME] DAILY Lab 02/23/21 05:11 Ordered CBC WITH AUTO DIFF [HEME] DAILY Lab 02/24/21 05:11 Ordered CBC WITH AUTO DIFF [HEME] DAILY Lab 02/25/21 05:11 Ordered COMPREHENSIVE METABOLIC PN,CMP [CHEM] DAILY Lab 02/19/21 05:11 Ordered COMPREHENSIVE METABOLIC PN,CMP [CHEM] DAILY Lab 02/20/21 05:11 Ordered COMPREHENSIVE METABOLIC PN,CMP [CHEM] DAILY Lab 02/21/21 05:11 Ordered COMPREHENSIVE METABOLIC PN,CMP [CHEM] DAILY Lab 02/22/21 05:11 Ordered COMPREHENSIVE METABOLIC PN,CMP [CHEM] DAILY Lab 02/23/21 05:11 Ordered COMPREHENSIVE METABOLIC PN,CMP [CHEM] DAILY Lab 02/24/21 05:11 Ordered COMPREHENSIVE METABOLIC PN,CMP [CHEM] DAILY Lab 02/25/21 05:11 Ordered CULTURE URINE [MREF] Stat Lab 02/18/21 01:20 Received Acetaminophen [TylenoL] Med 02/18/21 02:27 Active 650 mg PO Q4H PRN Albuterol/Ipratropium [Combivent Respimat] Med 02/18/21 04:00 Active See Dose Instructions INH Q4H Albuterol/Ipratropium [DuoNeb 3.0-0.5 MG/3 ML] Med 02/18/21 02:20 Active 3 ml NEB Q4HRRT PRN Dextromethorphan/guaiFENesin [Robitussin DM] Med 02/18/21 02:21 Active 10 ml PO Q4H PRN Enoxaparin [Lovenox] Med 02/18/21 09:00 Active 40 mg SUBCUT DAILY Levothyroxine Med 02/19/21 07:30 Active 75 mcg PO ACBREAKFAST Ondansetron [Zofran] Med 02/18/21 02:24 Active 4 mg IVPUSH Q4H PRN Pantoprazole [ProTONIX IV] 40 mg Med 02/18/21 09:00 Active Sodium Chloride 0.9% [Normal Saline] 10 ml IV DAILY Remdesivir 100 mg Med 02/18/21 22:00 Active Sodium Chloride 0.9% [Normal Saline] 100 ml IV Q24H Sodium Chloride 0.9% [Saline Flush] Med 02/17/21 22:35 Active 10 ml FLUSH ASDIRECTED PRN Sodium Chloride 0.9% [Saline Flush] Med 02/17/21 22:35 Active 2.5 ml FLUSH ASDIRECTED PRN cefTRIAXone [Rocephin in Dextrose,Iso-Osm 1 GM/50 ML] 1 Med 02/18/21 09:00 Active gm Premix Bag 1 bag IV Q24H dexAMETHasone Med 02/18/21 09:00 Active 6 mg PO DAILY Isolation [COMM] Routine Oth 02/17/21 22:36 Active SCD [Sequential Compression Device] [OM.PC] Routine Oth 02/18/21 02:21 Ordered Saline Lock Insert [OM.PC] Stat Oth 02/17/21 22:35 Ordered Code Status [Resuscitation Status] Routine Resus Stat 02/18/21 10:53 Ordered Medication Orders Acetaminophen (Acetaminophen 325 Mg Tab) 650 mg PO Q4H PRN PRN Reason: Pain/Fever Albuterol/Ipratropium (Albuterol/Ipratropium 4 Gm Inhalation Kelly) 0 gm INH Q4H [facility] Last Admin: 02/18/21 19:18 Dose: 1 puff Documented by: Admin: 02/18/21 17:09 Dose: 1 puff Documented by: Admin: 02/18/21 11:13 Dose: 1 puff Documented by: Admin: 02/18/21 08:50 Dose: 1 puff Documented by: Admin: 02/18/21 04:47 Dose: Not Given Documented by: UCHE Albuterol/Ipratropium (Albuterol/Ipratropium 3.0-0.5 Mg/3 Ml Neb Soln) 3 ml NEB Q4HRRT PRN PRN Reason: Shortness of Breath Dexamethasone (Dexamethasone 4 Mg Tab) 6 mg PO DAILY [facility] Last Admin: 02/18/21 08:41 Dose: 6 mg Documented by: MATTHEW Enoxaparin Sodium (Enoxaparin 40 Mg/0.4 Ml Syringe) 40 mg SUBCUT DAILY [facility] Last Admin: 02/18/21 08:41 Dose: 40 mg Documented by: MATTHEW Guaifenesin/Dextromethorphan (Guaifenesin/Dextromethorphan 100-10 Mg/5 Ml Soln 10 Ml Cup) 10 ml PO Q4H PRN PRN Reason: Cough Remdesivir 100 mg/ Sodium (Chloride) 100 mls @ 100 mls/hr IV Q24H [facility] Stop: 02/21/21 22:59 Last Admin: 02/18/21 22:37 Dose: 100 mls/hr Documented by: UCHE Ceftriaxone Sodium/Dextrose 1 (gm/ Premix) 50 mls @ 100 mls/hr IV Q24H [facility] Last Admin: 02/18/21 08:51 Dose: 100 mls/hr Documented by: MATTHEW Pantoprazole Sodium 40 mg/ (Sodium Chloride) 10 mls @ 300 mls/hr IV DAILY [facility] Last Admin: 02/18/21 08:40 Dose: 300 mls/hr Documented by: MATTHEW Levothyroxine Sodium (Levothyroxine 75 Mcg Tab) 75 mcg PO ACBREAKFAST MONIQUE Ondansetron HCl (Ondansetron 4 Mg/2 Ml Sdv) 4 mg IVPUSH Q4H PRN PRN Reason: Nausea/Vomiting Sodium Chloride (Sodium Chloride 0.9% 10 Ml Syringe) 10 ml FLUSH ASDIRECTED PRN PRN Reason: Keep Vein Open Last Admin: 02/17/21 22:52 Dose: 10 ml Documented by: CAROLINE Sodium Chloride (Sodium Chloride 0.9% 2.5 Ml Syringe) 2.5 ml FLUSH ASDIRECTED PRN PRN Reason: Keep Vein Open Last Admin: 02/17/21 22:53 Dose: 2.5 ml Documented by: CAROLINE Assessment/Plan Comment:: I performed a history and physical exam of the patient and discussed management with resident. I have reviewed the residents note and agree with documented findings and plan unless otherwise specified in my note.
[2021-02-18] MEDS: Pantoprazole 40 MG in Sodium Chloride 0.9% 10 ML IV SCH (08:40)
[2021-02-18] MEDS: Enoxaparin 40 MG/0.4 ML Syringe SUBCUT SCH (08:41)
[2021-02-18] MEDS: Dexamethasone 4 MG Tab PO SCH (08:41)
[2021-02-18] MEDS: cefTRIAXone 1 GM in Premix Bag 1 BAG IV SCH (08:51)
[2021-02-18] MEDS ORDERED: Pantoprazole 40 MG in Sodium Chloride 0.9% 10 ML IV SCH (09:00)
[2021-02-18] MEDS: REMDESIVIR 100 MG in Sodium Chloride 0.9% 100 ML IV SCH (22:37)
[2021-02-19] MEDS: Albuterol/Ipratropium 4 GM Inhalation Spray INH SCH ×7 (01:11→23:17)
[2021-02-19 05:25] LABS: BLOOD UREA NITROGEN,BUN 12 mg/dL (7.0-18.0); CARBON DIOXIDE,CO2 24.3 mmol/L (21.0-32.0); CHLORIDE,CL 98 mmol/L (98-107); GLUCOSE RANDOM 173 mg/dL (74-106); POTASSIUM,K 3.6 mmol/L (3.5-5.1); SODIUM,NA 137 mmol/L (136-145)
[2021-02-19] MEDS: Levothyroxine 75 MCG Tab PO SCH (06:42)
[2021-02-19] MEDS: Pantoprazole 40 MG in Sodium Chloride 0.9% 10 ML IV SCH (08:30)
[2021-02-19] MEDS: cefTRIAXone 1 GM in Premix Bag 1 BAG IV SCH (08:39)
[2021-02-19] MEDS: Dexamethasone 4 MG Tab PO SCH (08:39)
[2021-02-19] MEDS: Enoxaparin 40 MG/0.4 ML Syringe SUBCUT SCH (08:40)
--- NOTE | 2021-02-19 08:51 | PCM.PN ---
<Cynthia Calvillo - Last Filed: 02/19/21 10:33> - General Info Date of Service: 02/19/21 Admission Dx/Problem (Free Text): Admission Diagnosis/Problem Admission Diagnosis/Problem Respiratory failure with hypoxia Subjective Update: 80-year-old female admitted for Covid pneumonia. Patient states she feels slightly better today. She states she could not sleep well last night because she is in the hospital. Patient is alert and oriented. She asks for help finding her daughter's phone number in her cell phone. She calls and speaks with her daughter and asks her to check her mail. Patient is currently saturating at 91% on 6 L high flow. Patient states she has an appetite. Patient is ambulating to the restroom. Patient is urinating without issue. Patient denies fever, chills, difficulty breathing, cough, chest pain, palpitations, headaches or dizziness. - Review of Systems General: Denies: Fever, Chills HEENT: Denies: Headaches Pulmonary: Reports: Shortness of Breath. Denies: Cough, Sputum Cardiovascular: Reports: Dyspnea on Exertion. Denies: Chest Pain, Palpitations Gastrointestinal: Denies: Abdominal Pain, Constipation, Decreased Appetite, Diarrhea Genitourinary: Denies: Dysuria Musculoskeletal: Denies: Leg Pain Skin: Denies: Rash Neurological: Denies: Confusion - Patient Data Vitals - Most Recent: Last Vital Signs Temp 97.9 F 02/19/21 03:47 Pulse 95 02/19/21 03:47 Resp 17 02/19/21 03:47 BP 153/76 H 02/19/21 03:47 Pulse Ox 91 L 02/19/21 00:00 Weight - Most Recent: 64.229 kg I&O - Last 24 Hours: Intake & Output 02/18/21 02/19/21 02/19/21 22:59 06:59 14:59 Intake Total 600 900 Output Total 300 1700 Balance 300 -800 Lab Results Last 24 Hours: Laboratory Results - last 24 hr 02/19/21 02/19/21 Range/Units 04:30 04:30 WBC 8.66 (4.0-11.0) K/uL RBC 4.56 (4.30-5.90) M/uL Hgb 14.2 (12.0-16.0) g/dL Hct 40.3 (36.0-46.0) % MCV 88.4 (80.0-98.0) fL MCH 31.1 (27.0-32.0) pg MCHC 35.2 (31.0-37.0) g/dL RDW Std Deviation 44.5 (28.0-62.0) fl RDW Coeff of Lorelei 14 (11.0-15.0) % Plt Count 296 (150-400) K/uL MPV 10.10 (7.40-12.00) fL Neut % (Auto) SKEIN INSPECTOR Lymph % (Auto) SKEIN INSPECTOR [place] % (Auto) SKEIN INSPECTOR Eos % (Auto) SKEIN INSPECTOR Baso % (Auto) SKEIN INSPECTOR Neut # (Auto) SKEIN INSPECTOR Lymph # (Auto) SKEIN INSPECTOR [place] # (Auto) SKEIN INSPECTOR Eos # (Auto) SKEIN INSPECTOR Baso # (Auto) SKEIN INSPECTOR Add Manual Diff YES Neutrophils % (Manual) 70 (48.0-80.0) % Band Neutrophils % 8 % Lymphocytes % (Manual) 17 (16.0-40.0) % Monocytes % (Manual) 5 (0.0-15.0) % Nucleated RBC % 0.0 /100WBC Absolute Seg Neuts 6.1 H (1.4-5.7) Band Neutrophils # 0.7 Lymphocytes # (Manual) 1.5 (0.6-2.4) Monocytes # (Manual) 0.4 (0.0-0.8) Nucleated RBCs # 0 K/uL Sodium 137 (136-145) mmol/L Potassium 3.6 (3.5-5.1) mmol/L Chloride 98 (98-107) mmol/L Carbon Dioxide 24.3 (21.0-32.0) mmol/L BUN 12 (7.0-18.0) mg/dL Creatinine 0.6 (0.6-1.0) mg/dL Est Cr Clr Drug Dosing 58.16 mL/min Estimated GFR (MDRD) > 60.0 ml/min Glucose 173 H (74-106) mg/dL Calcium 8.1 L (8.5-10.1) mg/dL Total Bilirubin 0.6 (0.2-1.0) mg/dL AST 216 H (15-37) IU/L ALT 167 H (14-63) IU/L Alkaline Phosphatase 46 (46-116) U/L Total Protein 6.1 L (6.4-8.2) g/dL Albumin 2.7 L (3.4-5.0) g/dL Globulin 3.4 (2.6-4.0) g/dL Albumin/Globulin Ratio 0.8 L (0.9-1.6) Med Orders - Current: Current Medications Acetaminophen (Acetaminophen 325 Mg Tab) 650 mg PO Q4H PRN PRN Reason: Pain/Fever Albuterol/Ipratropium (Albuterol/Ipratropium 4 Gm Inhalation [place]) 0 gm INH Q4H [facility] Last Admin: 02/19/21 07:52 Dose: 1 puff Documented by: Albuterol/Ipratropium (Albuterol/Ipratropium 3.0-0.5 Mg/3 Ml Neb Soln) 3 ml NEB Q4HRRT PRN PRN Reason: Shortness of Breath Dexamethasone (Dexamethasone 4 Mg Tab) 6 mg PO DAILY [facility] Last Admin: 02/19/21 08:39 Dose: 6 mg Documented by: Enoxaparin Sodium (Enoxaparin 40 Mg/0.4 Ml Syringe) 40 mg SUBCUT DAILY [facility] Last Admin: 02/19/21 08:40 Dose: 40 mg Documented by: Guaifenesin/Dextromethorphan (Guaifenesin/Dextromethorphan 100-10 Mg/5 Ml Soln 10 Ml Cup) 10 ml PO Q4H PRN PRN Reason: Cough Remdesivir 100 mg/ Sodium (Chloride) 100 mls @ 100 mls/hr IV Q24H [facility] Stop: 02/21/21 22:59 Last Admin: 02/18/21 22:37 Dose: 100 mls/hr Documented by: Ceftriaxone Sodium/Dextrose 1 (gm/ Premix) 50 mls @ 100 mls/hr IV Q24H [facility] Last Admin: 02/19/21 08:39 Dose: 100 mls/hr Documented by: Pantoprazole Sodium 40 mg/ (Sodium Chloride) 10 mls @ 300 mls/hr IV DAILY [facility] Last Admin: 02/19/21 08:30 Dose: 300 mls/hr Documented by: Levothyroxine Sodium (Levothyroxine 75 Mcg Tab) 75 mcg PO ACBREAKFAST [facility] Last Admin: 02/19/21 06:42 Dose: 75 mcg Documented by: Melatonin (Melatonin 3 Mg Tab) 6 mg PO BEDTIME PRN PRN Reason: Insomnia Ondansetron HCl (Ondansetron 4 Mg/2 Ml Sdv) 4 mg IVPUSH Q4H PRN PRN Reason: Nausea/Vomiting Sodium Chloride (Sodium Chloride 0.9% 10 Ml Syringe) 10 ml FLUSH ASDIRECTED PRN PRN Reason: Keep Vein Open Last Admin: 02/17/21 22:52 Dose: 10 ml Documented by: Sodium Chloride (Sodium Chloride 0.9% 2.5 Ml Syringe) 2.5 ml FLUSH ASDIRECTED PRN PRN Reason: Keep Vein Open Last Admin: 02/17/21 22:53 Dose: 2.5 ml Documented by: Discontinued Medications Acetaminophen (Acetaminophen 325 Mg Tab) 650 mg PO NOW ONE Stop: 02/17/21 22:53 Last Admin: 02/17/21 22:58 Dose: 650 mg Documented by: Dexamethasone (Dexamethasone 10 Mg/Ml Sdv) 10 mg IVPUSH ONETIME ONE Stop: 02/17/21 22:36 Last Admin: 02/17/21 22:57 Dose: 10 mg Documented by: Remdesivir 200 mg/ Sodium (Chloride) 250 mls @ 250 mls/hr IV ONETIME ONE Stop: 02/17/21 22:38 Last Admin: 02/17/21 23:15 Dose: 250 mls/hr Documented by: Lactated Ringer's (Ringers, Lactated) 1,000 mls @ 999 mls/hr IV .BOLUS MONIQUE Last Admin: 02/17/21 22:59 Dose: 999 mls/hr Documented by: Pantoprazole Sodium 40 mg/ (Sodium Chloride) 10 mls @ 300 mls/hr IV DAILY MONIQUE Iopamidol (Iopamidol 755 Mg/Ml 100 Ml Bottle) 100 ml IVPUSH ONETIME ONE Stop: 02/17/21 23:51 Last Admin: 02/18/21 00:44 Dose: 100 ml Documented by: - Exam Quality Assessment: Supplemental Oxygen General: Alert, Oriented, Cooperative, No Acute Distress HEENT: Pupils Equal, Pupils Reactive Neck: Supple, Trachea Midline Lungs: Decreased Breath Sounds, Crackles Cardiovascular: Regular Rate, Regular Rhythm GI/Abdominal Exam: Normal Bowel Sounds, Soft, Non-Tender Back Exam: Normal Inspection. No: CVA Tenderness (L), CVA Tenderness (R) Extremities: Normal Inspection, Normal Range of Motion, Non-Tender, No Pedal Edema. No: Rick's Sign, Leg Pain Peripheral Pulses: 3+: Dorsalis Pedis (L), Dorsalis Pedis (R) Skin: Warm, Dry, Intact Neurological: No New Focal Deficit - Patient Data Lab Results Last 24 hrs: Laboratory Results - last 24 hr 02/19/21 02/19/21 Range/Units 04:30 04:30 WBC 8.66 (4.0-11.0) K/uL RBC 4.56 (4.30-5.90) M/uL Hgb 14.2 (12.0-16.0) g/dL Hct 40.3 (36.0-46.0) % MCV 88.4 (80.0-98.0) fL MCH 31.1 (27.0-32.0) pg MCHC 35.2 (31.0-37.0) g/dL RDW Std Deviation 44.5 (28.0-62.0) fl RDW Coeff of Lorelei 14 (11.0-15.0) % Plt Count 296 (150-400) K/uL MPV 10.10 (7.40-12.00) fL Neut % (Auto) SKEIN INSPECTOR Lymph % (Auto) SKEIN INSPECTOR [place] % (Auto) SKEIN INSPECTOR Eos % (Auto) SKEIN INSPECTOR Baso % (Auto) SKEIN INSPECTOR Neut # (Auto) SKEIN INSPECTOR Lymph # (Auto) SKEIN INSPECTOR [place] # (Auto) SKEIN INSPECTOR Eos # (Auto) SKEIN INSPECTOR Baso # (Auto) SKEIN INSPECTOR Add Manual Diff YES Neutrophils % (Manual) 70 (48.0-80.0) % Band Neutrophils % 8 % Lymphocytes % (Manual) 17 (16.0-40.0) % Monocytes % (Manual) 5 (0.0-15.0) % Nucleated RBC % 0.0 /100WBC Absolute Seg Neuts 6.1 H (1.4-5.7) Band Neutrophils # 0.7 Lymphocytes # (Manual) 1.5 (0.6-2.4) Monocytes # (Manual) 0.4 (0.0-0.8) Nucleated RBCs # 0 K/uL Sodium 137 (136-145) mmol/L Potassium 3.6 (3.5-5.1) mmol/L Chloride 98 (98-107) mmol/L Carbon Dioxide 24.3 (21.0-32.0) mmol/L BUN 12 (7.0-18.0) mg/dL Creatinine 0.6 (0.6-1.0) mg/dL Est Cr Clr Drug Dosing 58.16 mL/min Estimated GFR (MDRD) > 60.0 ml/min Glucose 173 H (74-106) mg/dL Calcium 8.1 L (8.5-10.1) mg/dL Total Bilirubin 0.6 (0.2-1.0) mg/dL AST 216 H (15-37) IU/L ALT 167 H (14-63) IU/L Alkaline Phosphatase 46 (46-116) U/L Total Protein 6.1 L (6.4-8.2) g/dL Albumin 2.7 L (3.4-5.0) g/dL Globulin 3.4 (2.6-4.0) g/dL Albumin/Globulin Ratio 0.8 L (0.9-1.6) Result Diagrams: 02/19/21 04:30 02/19/21 04:30 Sepsis Event Note - Evaluation Sepsis Screening Result: No Definite Risk - Focused Exam Vital Signs: Vital Signs Temp Pulse Resp BP Pulse Ox 02/19/21 03:47 97.9 F 95 17 153/76 H 02/19/21 00:00 97.7 F 97 16 145/73 H 91 L - Problem List & Annotations (1) UTI (urinary tract infection) SNOMED Code(s): 39462205 Code(s): N39.0 - URINARY TRACT INFECTION, SITE NOT SPECIFIED Status: Acute Current Visit: Yes (2) Pneumonia due to COVID-19 virus SNOMED Code(s): 452441392735744118 Code(s): U07.1 - COVID-19; J12.82 - PNEUMONIA DUE TO CORONAVIRUS DISEASE 2019 Status: Acute Current Visit: Yes - Problem List Review Problem List Initiated/Reviewed/Updated: Yes - My Orders Last 24 Hours: My Active Orders 02/18/21 10:53 Code Status [Resuscitation Status] Routine 02/19/21 07:30 Levothyroxine 75 mcg PO ACBREAKFAST 02/20/21 05:11 CBC WITH AUTO DIFF [HEME] DAILY COMPREHENSIVE METABOLIC PN,CMP [CHEM] DAILY 02/21/21 05:11 CBC WITH AUTO DIFF [HEME] DAILY COMPREHENSIVE METABOLIC PN,CMP [CHEM] DAILY 02/22/21 05:11 CBC WITH AUTO DIFF [HEME] DAILY COMPREHENSIVE METABOLIC PN,CMP [CHEM] DAILY 02/23/21 05:11 CBC WITH AUTO DIFF [HEME] DAILY COMPREHENSIVE METABOLIC PN,CMP [CHEM] DAILY 02/24/21 05:11 CBC WITH AUTO DIFF [HEME] DAILY COMPREHENSIVE METABOLIC PN,CMP [CHEM] DAILY 02/25/21 05:11 CBC WITH AUTO DIFF [HEME] DAILY COMPREHENSIVE METABOLIC PN,CMP [CHEM] DAILY - Plan Plan:: Covid pneumonia: Remdesivir. Final dose 02/21/2021. Trend LFTs. Dexamethasone 6 mg daily. Lovenox 40 mg daily. Duo nebs. Combivent. Dextromethorphan/penicillin. Zofran 4 mg. Pantoprazole 40 mg. Acetaminophen 650 mg as needed. Oxygen therapy. Currently on 6 L high flow. Urinary tract infection: Patient is receiving ceftriaxone 1 g daily. <Joyce Tripp - Last Filed: 02/19/21 14:26> - Patient Data Vitals - Most Recent: Last Vital Signs Temp 36.7 C 02/19/21 11:00 Pulse 113 H 02/19/21 11:00 Resp 20 02/19/21 11:00 BP 159/69 H 02/19/21 11:00 Pulse Ox 90 L 02/19/21 11:00 I&O - Last 24 Hours: Intake & Output 02/18/21 02/19/21 02/19/21 22:59 06:59 14:59 Intake Total 600 900 Output Total 300 1700 Balance 300 -800 Lab Results Last 24 Hours: Laboratory Results - last 24 hr 02/19/21 02/19/21 02/19/21 Range/Units 04:30 04:30 04:30 WBC 8.66 (4.0-11.0) K/uL RBC 4.56 (4.30-5.90) M/uL Hgb 14.2 (12.0-16.0) g/dL Hct 40.3 (36.0-46.0) % MCV 88.4 (80.0-98.0) fL MCH 31.1 (27.0-32.0) pg MCHC 35.2 (31.0-37.0) g/dL RDW Std Deviation 44.5 (28.0-62.0) fl RDW Coeff of Lorelei 14 (11.0-15.0) % Plt Count 296 (150-400) K/uL MPV 10.10 (7.40-12.00) fL Neut % (Auto) SKEIN INSPECTOR Lymph % (Auto) SKEIN INSPECTOR [place] % (Auto) SKEIN INSPECTOR Eos % (Auto) SKEIN INSPECTOR Baso % (Auto) SKEIN INSPECTOR Neut # (Auto) SKEIN INSPECTOR Lymph # (Auto) SKEIN INSPECTOR [place] # (Auto) SKEIN INSPECTOR Eos # (Auto) SKEIN INSPECTOR Baso # (Auto) SKEIN INSPECTOR Add Manual Diff YES Neutrophils % (Manual) 70 (48.0-80.0) % Band Neutrophils % 8 % Lymphocytes % (Manual) 17 (16.0-40.0) % Monocytes % (Manual) 5 (0.0-15.0) % Nucleated RBC % 0.0 /100WBC Absolute Seg Neuts 6.1 H (1.4-5.7) Band Neutrophils # 0.7 Lymphocytes # (Manual) 1.5 (0.6-2.4) Monocytes # (Manual) 0.4 (0.0-0.8) Nucleated RBCs # 0 K/uL Sodium 137 (136-145) mmol/L Potassium 3.6 (3.5-5.1) mmol/L Chloride 98 (98-107) mmol/L Carbon Dioxide 24.3 (21.0-32.0) mmol/L BUN 12 (7.0-18.0) mg/dL Creatinine 0.6 (0.6-1.0) mg/dL Est Cr Clr Drug Dosing 58.16 mL/min Estimated GFR (MDRD) > 60.0 ml/min Glucose 173 H (74-106) mg/dL Calcium 8.1 L (8.5-10.1) mg/dL Total Bilirubin 0.6 (0.2-1.0) mg/dL AST 216 H (15-37) IU/L ALT 167 H (14-63) IU/L Alkaline Phosphatase 46 (46-116) U/L C-Reactive Protein 6.40 H (0.00-0.90) mg/dL Total Protein 6.1 L (6.4-8.2) g/dL Albumin 2.7 L (3.4-5.0) g/dL Globulin 3.4 (2.6-4.0) g/dL Albumin/Globulin Ratio 0.8 L (0.9-1.6) Med Orders - Current: Current Medications Acetaminophen (Acetaminophen 325 Mg Tab) 650 mg PO Q4H PRN PRN Reason: Pain/Fever Albuterol/Ipratropium (Albuterol/Ipratropium 4 Gm Inhalation [place]) 0 gm INH Q4H [facility] Last Admin: 02/19/21 11:15 Dose: 1 puff Documented by: Albuterol/Ipratropium (Albuterol/Ipratropium 3.0-0.5 Mg/3 Ml Neb Soln) 3 ml NEB Q4HRRT PRN PRN Reason: Shortness of Breath Dexamethasone (Dexamethasone 4 Mg Tab) 6 mg PO DAILY [facility] Last Admin: 02/19/21 08:39 Dose: 6 mg Documented by: Enoxaparin Sodium (Enoxaparin 40 Mg/0.4 Ml Syringe) 40 mg SUBCUT DAILY [facility] Last Admin: 02/19/21 08:40 Dose: 40 mg Documented by: Guaifenesin/Dextromethorphan (Guaifenesin/Dextromethorphan 100-10 Mg/5 Ml Soln 10 Ml Cup) 10 ml PO Q4H PRN PRN Reason: Cough Remdesivir 100 mg/ Sodium (Chloride) 100 mls @ 100 mls/hr IV Q24H [facility] Stop: 02/21/21 22:59 Last Admin: 02/18/21 22:37 Dose: 100 mls/hr Documented by: Ceftriaxone Sodium/Dextrose 1 (gm/ Premix) 50 mls @ 100 mls/hr IV Q24H [facility] Last Admin: 02/19/21 08:39 Dose: 100 mls/hr Documented by: Pantoprazole Sodium 40 mg/ (Sodium Chloride) 10 mls @ 300 mls/hr IV DAILY [facility] Last Admin: 02/19/21 08:30 Dose: 300 mls/hr Documented by: Levothyroxine Sodium (Levothyroxine 75 Mcg Tab) 75 mcg PO ACBREAKFAST [facility] Last Admin: 02/19/21 06:42 Dose: 75 mcg Documented by: Melatonin (Melatonin 3 Mg Tab) 6 mg PO BEDTIME PRN PRN Reason: Insomnia Ondansetron HCl (Ondansetron 4 Mg/2 Ml Sdv) 4 mg IVPUSH Q4H PRN PRN Reason: Nausea/Vomiting Sodium Chloride (Sodium Chloride 0.9% 10 Ml Syringe) 10 ml FLUSH ASDIRECTED PRN PRN Reason: Keep Vein Open Last Admin: 02/17/21 22:52 Dose: 10 ml Documented by: Sodium Chloride (Sodium Chloride 0.9% 2.5 Ml Syringe) 2.5 ml FLUSH ASDIRECTED PRN PRN Reason: Keep Vein Open Last Admin: 02/17/21 22:53 Dose: 2.5 ml Documented by: Discontinued Medications Acetaminophen (Acetaminophen 325 Mg Tab) 650 mg PO NOW ONE Stop: 02/17/21 22:53 Last Admin: 02/17/21 22:58 Dose: 650 mg Documented by: Dexamethasone (Dexamethasone 10 Mg/Ml Sdv) 10 mg IVPUSH ONETIME ONE Stop: 02/17/21 22:36 Last Admin: 02/17/21 22:57 Dose: 10 mg Documented by: Remdesivir 200 mg/ Sodium (Chloride) 250 mls @ 250 mls/hr IV ONETIME ONE Stop: 02/17/21 22:38 Last Admin: 02/17/21 23:15 Dose: 250 mls/hr Documented by: Lactated Ringer's (Ringers, Lactated) 1,000 mls @ 999 mls/hr IV .BOLUS MONIQUE Last Admin: 02/17/21 22:59 Dose: 999 mls/hr Documented by: Pantoprazole Sodium 40 mg/ (Sodium Chloride) 10 mls @ 300 mls/hr IV DAILY MONIQUE Iopamidol (Iopamidol 755 Mg/Ml 100 Ml Bottle) 100 ml IVPUSH ONETIME ONE Stop: 02/17/21 23:51 Last Admin: 02/18/21 00:44 Dose: 100 ml Documented by: - Patient Data Lab Results Last 24 hrs: Laboratory Results - last 24 hr 02/19/21 02/19/21 02/19/21 Range/Units 04:30 04:30 04:30 WBC 8.66 (4.0-11.0) K/uL RBC 4.56 (4.30-5.90) M/uL Hgb 14.2 (12.0-16.0) g/dL Hct 40.3 (36.0-46.0) % MCV 88.4 (80.0-98.0) fL MCH 31.1 (27.0-32.0) pg MCHC 35.2 (31.0-37.0) g/dL RDW Std Deviation 44.5 (28.0-62.0) fl RDW Coeff of Lorelei 14 (11.0-15.0) % Plt Count 296 (150-400) K/uL MPV 10.10 (7.40-12.00) fL Neut % (Auto) SKEIN INSPECTOR Lymph % (Auto) SKEIN INSPECTOR [place] % (Auto) SKEIN INSPECTOR Eos % (Auto) SKEIN INSPECTOR Baso % (Auto) SKEIN INSPECTOR Neut # (Auto) SKEIN INSPECTOR Lymph # (Auto) SKEIN INSPECTOR [place] # (Auto) SKEIN INSPECTOR Eos # (Auto) SKEIN INSPECTOR Baso # (Auto) SKEIN INSPECTOR Add Manual Diff YES Neutrophils % (Manual) 70 (48.0-80.0) % Band Neutrophils % 8 % Lymphocytes % (Manual) 17 (16.0-40.0) % Monocytes % (Manual) 5 (0.0-15.0) % Nucleated RBC % 0.0 /100WBC Absolute Seg Neuts 6.1 H (1.4-5.7) Band Neutrophils # 0.7 Lymphocytes # (Manual) 1.5 (0.6-2.4) Monocytes # (Manual) 0.4 (0.0-0.8) Nucleated RBCs # 0 K/uL Sodium 137 (136-145) mmol/L Potassium 3.6 (3.5-5.1) mmol/L Chloride 98 (98-107) mmol/L Carbon Dioxide 24.3 (21.0-32.0) mmol/L BUN 12 (7.0-18.0) mg/dL Creatinine 0.6 (0.6-1.0) mg/dL Est Cr Clr Drug Dosing 58.16 mL/min Estimated GFR (MDRD) > 60.0 ml/min Glucose 173 H (74-106) mg/dL Calcium 8.1 L (8.5-10.1) mg/dL Total Bilirubin 0.6 (0.2-1.0) mg/dL AST 216 H (15-37) IU/L ALT 167 H (14-63) IU/L Alkaline Phosphatase 46 (46-116) U/L C-Reactive Protein 6.40 H (0.00-0.90) mg/dL Total Protein 6.1 L (6.4-8.2) g/dL Albumin 2.7 L (3.4-5.0) g/dL Globulin 3.4 (2.6-4.0) g/dL Albumin/Globulin Ratio 0.8 L (0.9-1.6) Result Diagrams: 02/19/21 04:30 02/19/21 04:30 Sepsis Event Note - Focused Exam Vital Signs: Vital Signs Temp Pulse Resp BP Pulse Ox 02/19/21 11:00 36.7 C 113 H 20 159/69 H 90 L 02/19/21 07:00 36.6 C 97 18 143/62 H 89 L 02/19/21 03:47 36.6 C 95 17 153/76 H - My Orders Last 24 Hours: My Active Orders 02/18/21 22:00 Remdesivir 100 mg Sodium Chloride 0.9% [Normal Saline] 100 ml IV Q24H 02/18/21 23:50 Melatonin 6 mg PO BEDTIME PRN - Plan Plan:: I have seen and evaluated the patient and agree with the residents note unless specified in my note
[2021-02-19] MEDS: REMDESIVIR 100 MG in Sodium Chloride 0.9% 100 ML IV SCH (22:02)
[2021-02-20] MEDS: Albuterol/Ipratropium 4 GM Inhalation Spray INH SCH ×6 (03:45→23:06)
[2021-02-20] MEDS: Levothyroxine 75 MCG Tab PO SCH (06:32)
[2021-02-20 07:05] LABS: BLOOD UREA NITROGEN,BUN 11 mg/dL (7.0-18.0); CARBON DIOXIDE,CO2 25.3 mmol/L (21.0-32.0); CHLORIDE,CL 100 mmol/L (98-107); GLUCOSE RANDOM 128 mg/dL (74-106); POTASSIUM,K 3.3 mmol/L (3.5-5.1); SODIUM,NA 138 mmol/L (136-145)
[2021-02-20] MEDS ORDERED: Pantoprazole 40 MG Vial ONE (08:12)
[2021-02-20] MEDS: Dexamethasone 4 MG Tab PO SCH (08:28)
[2021-02-20] MEDS: Potassium Chloride 20 MEQ Tab.ER PO SCH ×2 (08:30→09:14)
[2021-02-20] MEDS: Enoxaparin 40 MG/0.4 ML Syringe SUBCUT SCH (08:31)
[2021-02-20] MEDS: cefTRIAXone 1 GM in Premix Bag 1 BAG IV SCH (08:32)
[2021-02-20] MEDS: Pantoprazole 40 MG in Sodium Chloride 0.9% 10 ML IV SCH (08:46)
--- NOTE | 2021-02-20 11:57 | PCM.PN ---
- General Info Date of Service: 02/20/21 Admission Dx/Problem (Free Text): Admission Diagnosis/Problem Admission Diagnosis/Problem Respiratory failure with hypoxia Subjective Update: 80-year-old female admitted for Covid pneumonia. Patient appears dyspneic. Patient's currently on 8 L high flow oxygen. She is still eating appropriately and getting up to use the bathroom. Patient denies fever, chills, cough, chest pain, palpitations, headaches or dizziness. I spoke with patient's son Jose again today and provide an update. - Review of Systems General: Denies: Fever HEENT: Denies: Sinus Congestion Pulmonary: Reports: Shortness of Breath. Denies: Pleuritic Chest Pain Cardiovascular: Reports: Dyspnea on Exertion. Denies: Chest Pain, Palpitations Gastrointestinal: Denies: Abdominal Pain, Constipation, Decreased Appetite, Diarrhea, Nausea, Vomiting Genitourinary: Denies: Dysuria Musculoskeletal: Denies: Leg Pain Skin: Denies: Rash Neurological: Denies: Confusion - Patient Data Vitals - Most Recent: Last Vital Signs Temp 97.9 F 02/20/21 07:58 Pulse 94 02/20/21 03:39 Resp 19 02/20/21 07:58 BP 131/46 L 02/20/21 07:58 Pulse Ox 91 L 02/20/21 09:30 Weight - Most Recent: 141 lb I&O - Last 24 Hours: Intake & Output 02/19/21 02/20/21 02/20/21 22:59 06:59 14:59 Intake Total 916 800 800 Output Total 1820 1400 Balance -904 -600 800 Lab Results Last 24 Hours: Laboratory Results - last 24 hr 02/19/21 02/20/21 02/20/21 Range/Units 04:30 05:31 05:31 WBC 13.18 H (4.0-11.0) K/uL RBC 4.26 L (4.30-5.90) M/uL Hgb 13.3 (12.0-16.0) g/dL Hct 37.7 (36.0-46.0) % MCV 88.5 (80.0-98.0) fL MCH 31.2 (27.0-32.0) pg MCHC 35.3 (31.0-37.0) g/dL RDW Std Deviation 44.0 (28.0-62.0) fl RDW Coeff of Lorelei 14 (11.0-15.0) % Plt Count 347 (150-400) K/uL MPV 9.60 (7.40-12.00) fL Add Manual Diff YES Neutrophils % (Manual) 88 H (48.0-80.0) % Band Neutrophils % 5 % Lymphocytes % (Manual) 5 L (16.0-40.0) % Monocytes % (Manual) 2 (0.0-15.0) % Nucleated RBC % 0.0 /100WBC Absolute Seg Neuts 11.6 H (1.4-5.7) Band Neutrophils # 0.7 Lymphocytes # (Manual) 0.7 (0.6-2.4) Monocytes # (Manual) 0.3 (0.0-0.8) Nucleated RBCs # 0 K/uL Sodium 138 (136-145) mmol/L Potassium 3.3 L (3.5-5.1) mmol/L Chloride 100 (98-107) mmol/L Carbon Dioxide 25.3 (21.0-32.0) mmol/L BUN 11 (7.0-18.0) mg/dL Creatinine 0.8 (0.6-1.0) mg/dL Est Cr Clr Drug Dosing 43.62 mL/min Estimated GFR (MDRD) > 60.0 ml/min Glucose 128 H (74-106) mg/dL Calcium 7.7 L (8.5-10.1) mg/dL Magnesium (1.8-2.4) mg/dL Total Bilirubin 0.7 (0.2-1.0) mg/dL AST 122 H (15-37) IU/L ALT 134 H (14-63) IU/L Alkaline Phosphatase 47 (46-116) U/L C-Reactive Protein 6.40 H (0.00-0.90) mg/dL Total Protein 5.8 L (6.4-8.2) g/dL Albumin 2.7 L (3.4-5.0) g/dL Globulin 3.1 (2.6-4.0) g/dL Albumin/Globulin Ratio 0.9 (0.9-1.6) 02/20/21 Range/Units 05:31 WBC (4.0-11.0) K/uL RBC (4.30-5.90) M/uL Hgb (12.0-16.0) g/dL Hct (36.0-46.0) % MCV (80.0-98.0) fL MCH (27.0-32.0) pg MCHC (31.0-37.0) g/dL RDW Std Deviation (28.0-62.0) fl RDW Coeff of Lorelei (11.0-15.0) % Plt Count (150-400) K/uL MPV (7.40-12.00) fL Add Manual Diff Neutrophils % (Manual) (48.0-80.0) % Band Neutrophils % % Lymphocytes % (Manual) (16.0-40.0) % Monocytes % (Manual) (0.0-15.0) % Nucleated RBC % /100WBC Absolute Seg Neuts (1.4-5.7) Band Neutrophils # Lymphocytes # (Manual) (0.6-2.4) Monocytes # (Manual) (0.0-0.8) Nucleated RBCs # K/uL Sodium (136-145) mmol/L Potassium (3.5-5.1) mmol/L Chloride (98-107) mmol/L Carbon Dioxide (21.0-32.0) mmol/L BUN (7.0-18.0) mg/dL Creatinine (0.6-1.0) mg/dL Est Cr Clr Drug Dosing mL/min Estimated GFR (MDRD) ml/min Glucose (74-106) mg/dL Calcium (8.5-10.1) mg/dL Magnesium 1.7 L (1.8-2.4) mg/dL Total Bilirubin (0.2-1.0) mg/dL AST (15-37) IU/L ALT (14-63) IU/L Alkaline Phosphatase (46-116) U/L C-Reactive Protein (0.00-0.90) mg/dL Total Protein (6.4-8.2) g/dL Albumin (3.4-5.0) g/dL Globulin (2.6-4.0) g/dL Albumin/Globulin Ratio (0.9-1.6) Med Orders - Current: Current Medications Acetaminophen (Acetaminophen 325 Mg Tab) 650 mg PO Q4H PRN PRN Reason: Pain/Fever Albuterol/Ipratropium (Albuterol/Ipratropium 4 Gm Inhalation [place]) 0 gm INH Q4H [facility] Last Admin: 02/20/21 11:42 Dose: 1 puff Documented by: Albuterol/Ipratropium (Albuterol/Ipratropium 3.0-0.5 Mg/3 Ml Neb Soln) 3 ml NEB Q4HRRT PRN PRN Reason: Shortness of Breath Dexamethasone (Dexamethasone 4 Mg Tab) 6 mg PO DAILY [facility] Last Admin: 02/20/21 08:28 Dose: 6 mg Documented by: Enoxaparin Sodium (Enoxaparin 40 Mg/0.4 Ml Syringe) 40 mg SUBCUT DAILY [facility] Last Admin: 02/20/21 08:31 Dose: 40 mg Documented by: Guaifenesin/Dextromethorphan (Guaifenesin/Dextromethorphan 100-10 Mg/5 Ml Soln 10 Ml Cup) 10 ml PO Q4H PRN PRN Reason: Cough Remdesivir 100 mg/ Sodium (Chloride) 100 mls @ 100 mls/hr IV Q24H [facility] Stop: 02/21/21 22:59 Last Admin: 02/19/21 22:02 Dose: 100 mls/hr Documented by: Ceftriaxone Sodium/Dextrose 1 (gm/ Premix) 50 mls @ 100 mls/hr IV Q24H [facility] Last Admin: 02/20/21 08:32 Dose: 100 mls/hr Documented by: Pantoprazole Sodium 40 mg/ (Sodium Chloride) 10 mls @ 300 mls/hr IV DAILY [facility] Last Admin: 02/20/21 08:46 Dose: 300 mls/hr Documented by: Levothyroxine Sodium (Levothyroxine 75 Mcg Tab) 75 mcg PO ACBREAKFAST [facility] Last Admin: 02/20/21 06:32 Dose: 75 mcg Documented by: Melatonin (Melatonin 3 Mg Tab) 6 mg PO BEDTIME PRN PRN Reason: Insomnia Ondansetron HCl (Ondansetron 4 Mg/2 Ml Sdv) 4 mg IVPUSH Q4H PRN PRN Reason: Nausea/Vomiting Potassium Chloride (Potassium Chloride 20 Meq Tab.Er) 40 meq PO BID [facility] Stop: 02/20/21 17:00 Last Admin: 02/20/21 09:14 Dose: Not Given Documented by: Sodium Chloride (Sodium Chloride 0.9% 10 Ml Syringe) 10 ml FLUSH ASDIRECTED PRN PRN Reason: Keep Vein Open Last Admin: 02/17/21 22:52 Dose: 10 ml Documented by: Sodium Chloride (Sodium Chloride 0.9% 2.5 Ml Syringe) 2.5 ml FLUSH ASDIRECTED PRN PRN Reason: Keep Vein Open Last Admin: 02/17/21 22:53 Dose: 2.5 ml Documented by: Discontinued Medications Acetaminophen (Acetaminophen 325 Mg Tab) 650 mg PO NOW ONE Stop: 02/17/21 22:53 Last Admin: 02/17/21 22:58 Dose: 650 mg Documented by: Dexamethasone (Dexamethasone 10 Mg/Ml Sdv) 10 mg IVPUSH ONETIME ONE Stop: 02/17/21 22:36 Last Admin: 02/17/21 22:57 Dose: 10 mg Documented by: Remdesivir 200 mg/ Sodium (Chloride) 250 mls @ 250 mls/hr IV ONETIME ONE Stop: 02/17/21 22:38 Last Admin: 02/17/21 23:15 Dose: 250 mls/hr Documented by: Lactated Ringer's (Ringers, Lactated) 1,000 mls @ 999 mls/hr IV .BOLUS [facility] Last Admin: 02/17/21 22:59 Dose: 999 mls/hr Documented by: Pantoprazole Sodium 40 mg/ (Sodium Chloride) 10 mls @ 300 mls/hr IV DAILY [facility] Iopamidol (Iopamidol 755 Mg/Ml 100 Ml Bottle) 100 ml IVPUSH ONETIME ONE Stop: 02/17/21 23:51 Last Admin: 02/18/21 00:44 Dose: 100 ml Documented by: Pantoprazole Sodium (Pantoprazole 40 Mg Vial) Confirm Administered Dose 40 mg .ROUTE .STK-MED ONE Stop: 02/20/21 08:13 Last Admin: 02/20/21 09:14 Dose: Not Given Documented by: - Exam Quality Assessment: Supplemental Oxygen General: Alert, Oriented, Cooperative, Mild Distress, Other (Patient is mildly dyspneic with accessory muscle use.) HEENT: Pupils Equal, Pupils Reactive Neck: Supple, Trachea Midline Lungs: Decreased Breath Sounds, Crackles, Other Cardiovascular: Regular Rate, Regular Rhythm GI/Abdominal Exam: Normal Bowel Sounds, Soft, Non-Tender Extremities: Normal Inspection, Normal Range of Motion, No Pedal Edema. No: Rick's Sign, Leg Pain Peripheral Pulses: 2+: Dorsalis Pedis (L), Dorsalis Pedis (R) Skin: Warm, Dry, Intact Neurological: No New Focal Deficit Psy/Mental Status: Alert, Normal Affect - Patient Data Lab Results Last 24 hrs: Laboratory Results - last 24 hr 02/19/21 02/20/21 02/20/21 Range/Units 04:30 05:31 05:31 WBC 13.18 H (4.0-11.0) K/uL RBC 4.26 L (4.30-5.90) M/uL Hgb 13.3 (12.0-16.0) g/dL Hct 37.7 (36.0-46.0) % MCV 88.5 (80.0-98.0) fL MCH 31.2 (27.0-32.0) pg MCHC 35.3 (31.0-37.0) g/dL RDW Std Deviation 44.0 (28.0-62.0) fl RDW Coeff of Lorelei 14 (11.0-15.0) % Plt Count 347 (150-400) K/uL MPV 9.60 (7.40-12.00) fL Add Manual Diff YES Neutrophils % (Manual) 88 H (48.0-80.0) % Band Neutrophils % 5 % Lymphocytes % (Manual) 5 L (16.0-40.0) % Monocytes % (Manual) 2 (0.0-15.0) % Nucleated RBC % 0.0 /100WBC Absolute Seg Neuts 11.6 H (1.4-5.7) Band Neutrophils # 0.7 Lymphocytes # (Manual) 0.7 (0.6-2.4) Monocytes # (Manual) 0.3 (0.0-0.8) Nucleated RBCs # 0 K/uL Sodium 138 (136-145) mmol/L Potassium 3.3 L (3.5-5.1) mmol/L Chloride 100 (98-107) mmol/L Carbon Dioxide 25.3 (21.0-32.0) mmol/L BUN 11 (7.0-18.0) mg/dL Creatinine 0.8 (0.6-1.0) mg/dL Est Cr Clr Drug Dosing 43.62 mL/min Estimated GFR (MDRD) > 60.0 ml/min Glucose 128 H (74-106) mg/dL Calcium 7.7 L (8.5-10.1) mg/dL Magnesium (1.8-2.4) mg/dL Total Bilirubin 0.7 (0.2-1.0) mg/dL AST 122 H (15-37) IU/L ALT 134 H (14-63) IU/L Alkaline Phosphatase 47 (46-116) U/L C-Reactive Protein 6.40 H (0.00-0.90) mg/dL Total Protein 5.8 L (6.4-8.2) g/dL Albumin 2.7 L (3.4-5.0) g/dL Globulin 3.1 (2.6-4.0) g/dL Albumin/Globulin Ratio 0.9 (0.9-1.6) 02/20/21 Range/Units 05:31 WBC (4.0-11.0) K/uL RBC (4.30-5.90) M/uL Hgb (12.0-16.0) g/dL Hct (36.0-46.0) % MCV (80.0-98.0) fL MCH (27.0-32.0) pg MCHC (31.0-37.0) g/dL RDW Std Deviation (28.0-62.0) fl RDW Coeff of Lorelei (11.0-15.0) % Plt Count (150-400) K/uL MPV (7.40-12.00) fL Add Manual Diff Neutrophils % (Manual) (48.0-80.0) % Band Neutrophils % % Lymphocytes % (Manual) (16.0-40.0) % Monocytes % (Manual) (0.0-15.0) % Nucleated RBC % /100WBC Absolute Seg Neuts (1.4-5.7) Band Neutrophils # Lymphocytes # (Manual) (0.6-2.4) Monocytes # (Manual) (0.0-0.8) Nucleated RBCs # K/uL Sodium (136-145) mmol/L Potassium (3.5-5.1) mmol/L Chloride (98-107) mmol/L Carbon Dioxide (21.0-32.0) mmol/L BUN (7.0-18.0) mg/dL Creatinine (0.6-1.0) mg/dL Est Cr Clr Drug Dosing mL/min Estimated GFR (MDRD) ml/min Glucose (74-106) mg/dL Calcium (8.5-10.1) mg/dL Magnesium 1.7 L (1.8-2.4) mg/dL Total Bilirubin (0.2-1.0) mg/dL AST (15-37) IU/L ALT (14-63) IU/L Alkaline Phosphatase (46-116) U/L C-Reactive Protein (0.00-0.90) mg/dL Total Protein (6.4-8.2) g/dL Albumin (3.4-5.0) g/dL Globulin (2.6-4.0) g/dL Albumin/Globulin Ratio (0.9-1.6) Result Diagrams: 02/20/21 05:31 02/20/21 05:31 Sepsis Event Note - Evaluation Sepsis Screening Result: No Definite Risk - Focused Exam Vital Signs: Vital Signs Temp Pulse Resp BP Pulse Ox 02/20/21 09:30 91 L 02/20/21 07:58 97.9 F 19 131/46 L 88 L 02/20/21 06:32 91 L 02/20/21 05:26 90 L 02/20/21 03:39 97.5 F 94 20 128/59 L 90 L 02/20/21 01:38 91 L - Problem List & Annotations (1) UTI (urinary tract infection) SNOMED Code(s): 62665385 Code(s): N39.0 - URINARY TRACT INFECTION, SITE NOT SPECIFIED Status: Acute Current Visit: Yes (2) Pneumonia due to COVID-19 virus SNOMED Code(s): 186439782864702946 Code(s): U07.1 - COVID-19; J12.82 - PNEUMONIA DUE TO CORONAVIRUS DISEASE 2019 Status: Acute Current Visit: Yes - Problem List Review Problem List Initiated/Reviewed/Updated: Yes - My Orders Last 24 Hours: My Active Orders 02/20/21 07:47 Potassium Chloride [Klor-Con M20] 40 meq PO BID 02/21/21 05:11 CBC WITH AUTO DIFF [HEME] DAILY COMPREHENSIVE METABOLIC PN,CMP [CHEM] DAILY 02/22/21 05:11 CBC WITH AUTO DIFF [HEME] DAILY COMPREHENSIVE METABOLIC PN,CMP [CHEM] DAILY 02/23/21 05:11 CBC WITH AUTO DIFF [HEME] DAILY COMPREHENSIVE METABOLIC PN,CMP [CHEM] DAILY 02/24/21 05:11 CBC WITH AUTO DIFF [HEME] DAILY COMPREHENSIVE METABOLIC PN,CMP [CHEM] DAILY 02/25/21 05:11 CBC WITH AUTO DIFF [HEME] DAILY COMPREHENSIVE METABOLIC PN,CMP [CHEM] DAILY - Plan Plan:: Covid pneumonia: Patient has increased oxygen requirements and is now up to 8 L high flow. Remdesivir. Final dose 02/21/2021. Dexamethasone 6 mg daily. Lovenox 40 mg daily. Duo nebs. Combivent. Dextromethorphan/penicillin. Zofran 4 mg. Pantoprazole 40 mg. Acetaminophen 650 mg as needed. Oxygen therapy. Urinary tract infection: Patient is receiving ceftriaxone 1 g daily.
[2021-02-20] MEDS: REMDESIVIR 100 MG in Sodium Chloride 0.9% 100 ML IV SCH (22:41)
[2021-02-21] MEDS: Albuterol/Ipratropium 4 GM Inhalation Spray INH SCH ×5 (03:39→19:57)
[2021-02-21] MEDS: Acetaminophen 325 MG Tab PO PRN (03:46)
[2021-02-21] MEDS: Levothyroxine 75 MCG Tab PO SCH (06:33)
[2021-02-21 06:47] LABS: BLOOD UREA NITROGEN,BUN 10 mg/dL (7.0-18.0); CHLORIDE,CL 103 mmol/L (98-107); GLUCOSE RANDOM 108 mg/dL (74-106); POTASSIUM,K 3.2 mmol/L (3.5-5.1); SODIUM,NA 141 mmol/L (136-145)
--- NOTE | 2021-02-21 08:14 | PCM.PN ---
- General Info Date of Service: 02/21/21 Admission Dx/Problem (Free Text): Admission Diagnosis/Problem Admission Diagnosis/Problem Respiratory failure with hypoxia Subjective Update: 80-year-old female admitted for Covid pneumonia. Patient appears to be breathing comfortably. Patient's currently on 7 L high flow oxygen. Patient denies issues with appetite. She is eating appropriately and getting up to use the bathroom. Patient requests recliner chair to sit in. Patient denies fever, chills, cough, chest pain, palpitations, headaches or dizziness. - Review of Systems General: Denies: Fever, Chills HEENT: Denies: Headaches Pulmonary: Reports: Shortness of Breath. Denies: Pleuritic Chest Pain, Cough Cardiovascular: Reports: Dyspnea on Exertion. Denies: Chest Pain, Palpitations Gastrointestinal: Denies: Abdominal Pain, Constipation, Decreased Appetite, Diarrhea, Nausea, Vomiting Genitourinary: Denies: Dysuria Musculoskeletal: Denies: Leg Pain Skin: Denies: Rash Neurological: Denies: Confusion, Dizziness, Headache, Numbness, Paresthesia - Patient Data Vitals - Most Recent: Last Vital Signs Temp 98.9 F 02/21/21 07:49 Pulse 84 02/21/21 07:49 Resp 20 02/21/21 07:49 BP 100/44 L 02/21/21 07:49 Pulse Ox 82 L 02/21/21 07:49 Weight - Most Recent: 141 lb I&O - Last 24 Hours: Intake & Output 02/20/21 02/21/21 02/21/21 22:59 06:59 14:59 Intake Total 950 Output Total 1050 400 Balance -1050 550 Lab Results Last 24 Hours: Laboratory Results - last 24 hr 02/20/21 02/20/21 02/21/21 Range/Units 05:31 05:31 05:38 WBC 13.18 H 13.36 H (4.0-11.0) K/uL RBC 4.26 L 3.95 L (4.30-5.90) M/uL Hgb 13.3 12.4 (12.0-16.0) g/dL Hct 37.7 35.3 L (36.0-46.0) % MCV 88.5 89.4 (80.0-98.0) fL MCH 31.2 31.4 (27.0-32.0) pg MCHC 35.3 35.1 (31.0-37.0) g/dL RDW Std Deviation 44.0 45.1 (28.0-62.0) fl RDW Coeff of Lorelei 14 14 (11.0-15.0) % Plt Count 347 322 (150-400) K/uL MPV 9.60 9.60 (7.40-12.00) fL Add Manual Diff YES YES Neutrophils % (Manual) 88 H 82 H (48.0-80.0) % Band Neutrophils % 5 15 % Lymphocytes % (Manual) 5 L 3 L (16.0-40.0) % Monocytes % (Manual) 2 (0.0-15.0) % Nucleated RBC % 0.0 0.0 /100WBC Absolute Seg Neuts 11.6 H 11.0 H (1.4-5.7) Band Neutrophils # 0.7 2.0 Lymphocytes # (Manual) 0.7 0.4 L (0.6-2.4) Monocytes # (Manual) 0.3 (0.0-0.8) Nucleated RBCs # 0 0 K/uL Sodium (136-145) mmol/L Potassium (3.5-5.1) mmol/L Chloride (98-107) mmol/L Carbon Dioxide (21.0-32.0) mmol/L BUN (7.0-18.0) mg/dL Creatinine (0.6-1.0) mg/dL Est Cr Clr Drug Dosing mL/min Estimated GFR (MDRD) ml/min Glucose (74-106) mg/dL Calcium (8.5-10.1) mg/dL Magnesium 1.7 L (1.8-2.4) mg/dL Total Bilirubin (0.2-1.0) mg/dL AST (15-37) IU/L ALT (14-63) IU/L Alkaline Phosphatase (46-116) U/L Total Protein (6.4-8.2) g/dL Albumin (3.4-5.0) g/dL Globulin (2.6-4.0) g/dL Albumin/Globulin Ratio (0.9-1.6) 02/21/21 Range/Units 05:38 WBC (4.0-11.0) K/uL RBC (4.30-5.90) M/uL Hgb (12.0-16.0) g/dL Hct (36.0-46.0) % MCV (80.0-98.0) fL MCH (27.0-32.0) pg MCHC (31.0-37.0) g/dL RDW Std Deviation (28.0-62.0) fl RDW Coeff of Lorelei (11.0-15.0) % Plt Count (150-400) K/uL MPV (7.40-12.00) fL Add Manual Diff Neutrophils % (Manual) (48.0-80.0) % Band Neutrophils % % Lymphocytes % (Manual) (16.0-40.0) % Monocytes % (Manual) (0.0-15.0) % Nucleated RBC % /100WBC Absolute Seg Neuts (1.4-5.7) Band Neutrophils # Lymphocytes # (Manual) (0.6-2.4) Monocytes # (Manual) (0.0-0.8) Nucleated RBCs # K/uL Sodium 141 (136-145) mmol/L Potassium 3.2 L (3.5-5.1) mmol/L Chloride 103 (98-107) mmol/L Carbon Dioxide 25.0 (21.0-32.0) mmol/L BUN 10 (7.0-18.0) mg/dL Creatinine 0.7 (0.6-1.0) mg/dL Est Cr Clr Drug Dosing 49.85 mL/min Estimated GFR (MDRD) > 60.0 ml/min Glucose 108 H (74-106) mg/dL Calcium 7.6 L (8.5-10.1) mg/dL Magnesium (1.8-2.4) mg/dL Total Bilirubin 0.5 (0.2-1.0) mg/dL AST 78 H (15-37) IU/L ALT 94 H (14-63) IU/L Alkaline Phosphatase 44 L (46-116) U/L Total Protein 5.5 L (6.4-8.2) g/dL Albumin 2.3 L (3.4-5.0) g/dL Globulin 3.2 (2.6-4.0) g/dL Albumin/Globulin Ratio 0.7 L (0.9-1.6) Med Orders - Current: Current Medications Acetaminophen (Acetaminophen 325 Mg Tab) 650 mg PO Q4H PRN PRN Reason: Pain/Fever Last Admin: 02/21/21 03:46 Dose: 650 mg Documented by: Albuterol/Ipratropium (Albuterol/Ipratropium 4 Gm Inhalation [place]) 0 gm INH Q4H [facility] Last Admin: 02/21/21 03:39 Dose: 1 puff Documented by: Albuterol/Ipratropium (Albuterol/Ipratropium 3.0-0.5 Mg/3 Ml Neb Soln) 3 ml NEB Q4HRRT PRN PRN Reason: Shortness of Breath Dexamethasone (Dexamethasone 4 Mg Tab) 6 mg PO DAILY [facility] Last Admin: 02/20/21 08:28 Dose: 6 mg Documented by: Enoxaparin Sodium (Enoxaparin 40 Mg/0.4 Ml Syringe) 40 mg SUBCUT DAILY [facility] Last Admin: 02/20/21 08:31 Dose: 40 mg Documented by: Guaifenesin/Dextromethorphan (Guaifenesin/Dextromethorphan 100-10 Mg/5 Ml Soln 10 Ml Cup) 10 ml PO Q4H PRN PRN Reason: Cough Remdesivir 100 mg/ Sodium (Chloride) 100 mls @ 100 mls/hr IV Q24H [facility] Stop: 02/21/21 22:59 Last Admin: 02/20/21 22:41 Dose: 100 mls/hr Documented by: Ceftriaxone Sodium/Dextrose 1 (gm/ Premix) 50 mls @ 100 mls/hr IV Q24H [facility] Last Admin: 02/20/21 08:32 Dose: 100 mls/hr Documented by: Pantoprazole Sodium 40 mg/ (Sodium Chloride) 10 mls @ 300 mls/hr IV DAILY [facility] Last Admin: 02/20/21 08:46 Dose: 300 mls/hr Documented by: Potassium Chloride 40 meq/ (Premix) 100 mls @ 25 mls/hr IV ONETIME ONE Stop: 02/21/21 12:06 Levothyroxine Sodium (Levothyroxine 75 Mcg Tab) 75 mcg PO ACBREAKFAST [facility] Last Admin: 02/21/21 06:33 Dose: 75 mcg Documented by: Melatonin (Melatonin 3 Mg Tab) 6 mg PO BEDTIME PRN PRN Reason: Insomnia Ondansetron HCl (Ondansetron 4 Mg/2 Ml Sdv) 4 mg IVPUSH Q4H PRN PRN Reason: Nausea/Vomiting Potassium Chloride (Potassium Chloride 20 Meq Tab.Er) 40 meq PO ONETIME ONE Stop: 02/21/21 08:08 Sodium Chloride (Sodium Chloride 0.9% 10 Ml Syringe) 10 ml FLUSH ASDIRECTED PRN PRN Reason: Keep Vein Open Last Admin: 02/17/21 22:52 Dose: 10 ml Documented by: Sodium Chloride (Sodium Chloride 0.9% 2.5 Ml Syringe) 2.5 ml FLUSH ASDIRECTED PRN PRN Reason: Keep Vein Open Last Admin: 02/17/21 22:53 Dose: 2.5 ml Documented by: Discontinued Medications Acetaminophen (Acetaminophen 325 Mg Tab) 650 mg PO NOW ONE Stop: 02/17/21 22:53 Last Admin: 02/17/21 22:58 Dose: 650 mg Documented by: Dexamethasone (Dexamethasone 10 Mg/Ml Sdv) 10 mg IVPUSH ONETIME ONE Stop: 02/17/21 22:36 Last Admin: 02/17/21 22:57 Dose: 10 mg Documented by: Remdesivir 200 mg/ Sodium (Chloride) 250 mls @ 250 mls/hr IV ONETIME ONE Stop: 02/17/21 22:38 Last Admin: 02/17/21 23:15 Dose: 250 mls/hr Documented by: Lactated Ringer's (Ringers, Lactated) 1,000 mls @ 999 mls/hr IV .BOLUS [facility] Last Admin: 02/17/21 22:59 Dose: 999 mls/hr Documented by: Pantoprazole Sodium 40 mg/ (Sodium Chloride) 10 mls @ 300 mls/hr IV DAILY [facility] Iopamidol (Iopamidol 755 Mg/Ml 100 Ml Bottle) 100 ml IVPUSH ONETIME ONE Stop: 02/17/21 23:51 Last Admin: 02/18/21 00:44 Dose: 100 ml Documented by: Pantoprazole Sodium (Pantoprazole 40 Mg Vial) Confirm Administered Dose 40 mg .ROUTE .STK-MED ONE Stop: 02/20/21 08:13 Last Admin: 02/20/21 09:14 Dose: Not Given Documented by: Potassium Chloride (Potassium Chloride 20 Meq Tab.Er) 40 meq PO BID [facility] Stop: 02/20/21 17:00 Last Admin: 02/20/21 09:14 Dose: Not Given Documented by: - Exam Quality Assessment: Supplemental Oxygen General: Alert, Oriented HEENT: Pupils Equal, Pupils Reactive Neck: Supple, Trachea Midline Lungs: Decreased Breath Sounds, Rales Cardiovascular: Regular Rate, Regular Rhythm GI/Abdominal Exam: Normal Bowel Sounds, Soft, Non-Tender Back Exam: Normal Inspection Extremities: Normal Inspection, Normal Range of Motion, Non-Tender, No Pedal Edema. No: Rick's Sign Peripheral Pulses: 3+: Dorsalis Pedis (L), Dorsalis Pedis (R) Skin: Warm, Dry, Intact Neurological: No New Focal Deficit - Patient Data Lab Results Last 24 hrs: Laboratory Results - last 24 hr 02/20/21 02/20/21 02/21/21 Range/Units 05:31 05:31 05:38 WBC 13.18 H 13.36 H (4.0-11.0) K/uL RBC 4.26 L 3.95 L (4.30-5.90) M/uL Hgb 13.3 12.4 (12.0-16.0) g/dL Hct 37.7 35.3 L (36.0-46.0) % MCV 88.5 89.4 (80.0-98.0) fL MCH 31.2 31.4 (27.0-32.0) pg MCHC 35.3 35.1 (31.0-37.0) g/dL RDW Std Deviation 44.0 45.1 (28.0-62.0) fl RDW Coeff of Lorelei 14 14 (11.0-15.0) % Plt Count 347 322 (150-400) K/uL MPV 9.60 9.60 (7.40-12.00) fL Add Manual Diff YES YES Neutrophils % (Manual) 88 H 82 H (48.0-80.0) % Band Neutrophils % 5 15 % Lymphocytes % (Manual) 5 L 3 L (16.0-40.0) % Monocytes % (Manual) 2 (0.0-15.0) % Nucleated RBC % 0.0 0.0 /100WBC Absolute Seg Neuts 11.6 H 11.0 H (1.4-5.7) Band Neutrophils # 0.7 2.0 Lymphocytes # (Manual) 0.7 0.4 L (0.6-2.4) Monocytes # (Manual) 0.3 (0.0-0.8) Nucleated RBCs # 0 0 K/uL Sodium (136-145) mmol/L Potassium (3.5-5.1) mmol/L Chloride (98-107) mmol/L Carbon Dioxide (21.0-32.0) mmol/L BUN (7.0-18.0) mg/dL Creatinine (0.6-1.0) mg/dL Est Cr Clr Drug Dosing mL/min Estimated GFR (MDRD) ml/min Glucose (74-106) mg/dL Calcium (8.5-10.1) mg/dL Magnesium 1.7 L (1.8-2.4) mg/dL Total Bilirubin (0.2-1.0) mg/dL AST (15-37) IU/L ALT (14-63) IU/L Alkaline Phosphatase (46-116) U/L Total Protein (6.4-8.2) g/dL Albumin (3.4-5.0) g/dL Globulin (2.6-4.0) g/dL Albumin/Globulin Ratio (0.9-1.6) 02/21/21 Range/Units 05:38 WBC (4.0-11.0) K/uL RBC (4.30-5.90) M/uL Hgb (12.0-16.0) g/dL Hct (36.0-46.0) % MCV (80.0-98.0) fL MCH (27.0-32.0) pg MCHC (31.0-37.0) g/dL RDW Std Deviation (28.0-62.0) fl RDW Coeff of Lorelei (11.0-15.0) % Plt Count (150-400) K/uL MPV (7.40-12.00) fL Add Manual Diff Neutrophils % (Manual) (48.0-80.0) % Band Neutrophils % % Lymphocytes % (Manual) (16.0-40.0) % Monocytes % (Manual) (0.0-15.0) % Nucleated RBC % /100WBC Absolute Seg Neuts (1.4-5.7) Band Neutrophils # Lymphocytes # (Manual) (0.6-2.4) Monocytes # (Manual) (0.0-0.8) Nucleated RBCs # K/uL Sodium 141 (136-145) mmol/L Potassium 3.2 L (3.5-5.1) mmol/L Chloride 103 (98-107) mmol/L Carbon Dioxide 25.0 (21.0-32.0) mmol/L BUN 10 (7.0-18.0) mg/dL Creatinine 0.7 (0.6-1.0) mg/dL Est Cr Clr Drug Dosing 49.85 mL/min Estimated GFR (MDRD) > 60.0 ml/min Glucose 108 H (74-106) mg/dL Calcium 7.6 L (8.5-10.1) mg/dL Magnesium (1.8-2.4) mg/dL Total Bilirubin 0.5 (0.2-1.0) mg/dL AST 78 H (15-37) IU/L ALT 94 H (14-63) IU/L Alkaline Phosphatase 44 L (46-116) U/L Total Protein 5.5 L (6.4-8.2) g/dL Albumin 2.3 L (3.4-5.0) g/dL Globulin 3.2 (2.6-4.0) g/dL Albumin/Globulin Ratio 0.7 L (0.9-1.6) Result Diagrams: 02/21/21 05:38 02/21/21 05:38 Sepsis Event Note - Evaluation Sepsis Screening Result: No Definite Risk - Focused Exam Vital Signs: Vital Signs Temp Temp Pulse Resp BP Pulse Ox 02/21/21 07:49 98.9 F 84 20 100/44 L 82 L 02/21/21 06:33 98 F 72 20 93 L 02/21/21 03:52 99.8 F 89 22 H 118/51 L 90 L 02/21/21 03:46 99.8 F 02/20/21 22:46 98.6 F 83 21 H 129/58 L 90 L - Problem List & Annotations (1) UTI (urinary tract infection) SNOMED Code(s): 21412440 Code(s): N39.0 - URINARY TRACT INFECTION, SITE NOT SPECIFIED Status: Acute Current Visit: Yes (2) Pneumonia due to COVID-19 virus SNOMED Code(s): 062374249922212331 Code(s): U07.1 - COVID-19; J12.82 - PNEUMONIA DUE TO CORONAVIRUS DISEASE 2019 Status: Acute Current Visit: Yes - Problem List Review Problem List Initiated/Reviewed/Updated: Yes - My Orders Last 24 Hours: My Active Orders 02/21/21 08:07 Potassium Chloride Riders [KCL in Water 40 MEQ/100 ML] 40 meq Premix Bag 1 bag IV ONETIME Potassium Chloride [Klor-Con M20] 40 meq PO ONETIME ONE 02/22/21 05:11 CBC WITH AUTO DIFF [HEME] DAILY COMPREHENSIVE METABOLIC PN,CMP [CHEM] DAILY 02/23/21 05:11 CBC WITH AUTO DIFF [HEME] DAILY COMPREHENSIVE METABOLIC PN,CMP [CHEM] DAILY 02/24/21 05:11 CBC WITH AUTO DIFF [HEME] DAILY COMPREHENSIVE METABOLIC PN,CMP [CHEM] DAILY 02/25/21 05:11 CBC WITH AUTO DIFF [HEME] DAILY COMPREHENSIVE METABOLIC PN,CMP [CHEM] DAILY - Plan Plan:: Covid pneumonia: Patient is less dyspneic than yesterday her oxygen has been weaned down to 7 L high flow. Remdesivir. Final dose today. Dexamethasone 6 mg daily. Lovenox 40 mg daily. Duo nebs. Combivent. Dextromethorphan/guaifenesin. Zofran 4 mg. Pantoprazole 40 mg. Acetaminophen 650 mg as needed. Oxygen therapy. Potassium repleted. Urinary tract infection: Patient is receiving ceftriaxone 1 g daily.
[2021-02-21] MEDS ORDERED: Potassium Chloride 20 MEQ Tab.ER PO ONE (08:30)
[2021-02-21] MEDS ORDERED: Potassium Chloride 40 MEQ in Sodium Chloride 0.9% 500 ML IV ONE (08:30)
[2021-02-21] MEDS: Dexamethasone 4 MG Tab PO SCH (10:07)
[2021-02-21] MEDS: Magnesium Oxide 400 MG Tab PO SCH ×2 (10:09→20:10)
[2021-02-21] MEDS: Pantoprazole 40 MG in Sodium Chloride 0.9% 10 ML IV SCH (10:14)
[2021-02-21] MEDS: cefTRIAXone 1 GM in Premix Bag 1 BAG IV SCH (10:15)
[2021-02-21] MEDS: Enoxaparin 40 MG/0.4 ML Syringe SUBCUT SCH (10:15)
[2021-02-21] MEDS: REMDESIVIR 100 MG in Sodium Chloride 0.9% 100 ML IV SCH (21:56)
[2021-02-22] MEDS: Albuterol/Ipratropium 4 GM Inhalation Spray INH SCH ×6 (00:10→20:10)
[2021-02-22] MEDS: Acetaminophen 325 MG Tab PO PRN (03:13)
[2021-02-22] MEDS: Levothyroxine 75 MCG Tab PO SCH (06:34)
[2021-02-22 08:15] LABS: BLOOD UREA NITROGEN,BUN 9 mg/dL (7.0-18.0); CARBON DIOXIDE,CO2 22.1 mmol/L (21.0-32.0); CHLORIDE,CL 104 mmol/L (98-107); GLUCOSE RANDOM 86 mg/dL (74-106); SODIUM,NA 140 mmol/L (136-145)
[2021-02-22] MEDS: cefTRIAXone 1 GM in Premix Bag 1 BAG IV SCH (08:48)
[2021-02-22] MEDS: Pantoprazole 40 MG in Sodium Chloride 0.9% 10 ML IV SCH (08:50)
[2021-02-22] MEDS: Magnesium Oxide 400 MG Tab PO SCH ×2 (08:53→20:19)
[2021-02-22] MEDS: Dexamethasone 4 MG Tab PO SCH (08:54)
[2021-02-22] MEDS: Enoxaparin 40 MG/0.4 ML Syringe SUBCUT SCH (08:56)
[2021-02-22] MEDS: Phosphorus #1 250 MG Tab PO SCH ×3 (08:58→17:48)
--- NOTE | 2021-02-22 11:49 | PCM.PN ---
- General Info Date of Service: 02/22/21 Admission Dx/Problem (Free Text): Admission Diagnosis/Problem Admission Diagnosis/Problem Respiratory failure with hypoxia Subjective Update: 80-year-old female admitted for Covid pneumonia. Patient appears to be breathing comfortably. Patient's currently on 7 L high flow oxygen. Patient denies issues with appetite. Patient had a bowel movement this morning. She is eating appropriately and getting up to use the bathroom. Patient was provided with a new recliner which she finds more comfortable. Patient denies fever, chills, cough, chest pain, palpitations, headaches or dizziness. - Review of Systems General: Denies: Fever, Chills HEENT: Denies: Headaches Pulmonary: Reports: Shortness of Breath. Denies: Pleuritic Chest Pain, Cough, Sputum Cardiovascular: Reports: Dyspnea on Exertion. Denies: Chest Pain, Palpitations Gastrointestinal: Denies: Abdominal Pain, Constipation, Nausea, Vomiting Genitourinary: Denies: Dysuria Musculoskeletal: Denies: Leg Pain, Foot Pain Skin: Denies: Cyanosis Neurological: Denies: Confusion, Dizziness, Headache, Numbness, Paresthesia - Patient Data Vitals - Most Recent: Last Vital Signs Temp 97.0 F 02/22/21 08:00 Pulse 107 H 02/22/21 08:00 Resp 20 02/22/21 08:00 BP 117/57 L 02/22/21 08:00 Pulse Ox 87 L 02/22/21 08:00 Weight - Most Recent: 141 lb I&O - Last 24 Hours: Intake & Output 02/21/21 02/22/21 02/22/21 22:59 06:59 14:59 Intake Total 1500 1000 Output Total 800 200 Balance 700 800 Lab Results Last 24 Hours: Laboratory Results - last 24 hr 02/22/21 02/22/21 Range/Units 06:36 06:36 WBC 16.29 H (4.0-11.0) K/uL RBC 4.33 (4.30-5.90) M/uL Hgb 13.4 (12.0-16.0) g/dL Hct 38.9 (36.0-46.0) % MCV 89.8 (80.0-98.0) fL MCH 30.9 (27.0-32.0) pg MCHC 34.4 (31.0-37.0) g/dL RDW Std Deviation 44.9 (28.0-62.0) fl RDW Coeff of Lorelei 14 (11.0-15.0) % Plt Count 320 (150-400) K/uL MPV 9.80 (7.40-12.00) fL Add Manual Diff YES Neutrophils % (Manual) 93 H (48.0-80.0) % Band Neutrophils % 4 % Lymphocytes % (Manual) 3 L (16.0-40.0) % Nucleated RBC % 0.0 /100WBC Absolute Seg Neuts 15.1 H (1.4-5.7) Band Neutrophils # 0.7 Lymphocytes # (Manual) 0.5 L (0.6-2.4) Nucleated RBCs # 0 K/uL Sodium 140 (136-145) mmol/L Potassium 4.0 (3.5-5.1) mmol/L Chloride 104 (98-107) mmol/L Carbon Dioxide 22.1 (21.0-32.0) mmol/L BUN 9 (7.0-18.0) mg/dL Creatinine 0.7 (0.6-1.0) mg/dL Est Cr Clr Drug Dosing 49.85 mL/min Estimated GFR (MDRD) > 60.0 ml/min Glucose 86 (74-106) mg/dL Calcium 7.6 L (8.5-10.1) mg/dL Phosphorus 2.5 L (2.6-4.7) mg/dL Magnesium 1.9 (1.8-2.4) mg/dL Total Bilirubin 0.8 (0.2-1.0) mg/dL AST 70 H (15-37) IU/L ALT 82 H (14-63) IU/L Alkaline Phosphatase 51 (46-116) U/L Total Protein 5.7 L (6.4-8.2) g/dL Albumin 2.5 L (3.4-5.0) g/dL Globulin 3.2 (2.6-4.0) g/dL Albumin/Globulin Ratio 0.8 L (0.9-1.6) Srikanth Results Last 24 Hours: Microbiology 02/18/21 01:20 Urine Culture - Final Urine Med Orders - Current: Current Medications Acetaminophen (Acetaminophen 325 Mg Tab) 650 mg PO Q4H PRN PRN Reason: Pain/Fever Last Admin: 02/22/21 03:13 Dose: 650 mg Documented by: Albuterol/Ipratropium (Albuterol/Ipratropium 4 Gm Inhalation [place]) 0 gm INH Q4H [facility] Last Admin: 02/22/21 08:54 Dose: 1 puff Documented by: Albuterol/Ipratropium (Albuterol/Ipratropium 3.0-0.5 Mg/3 Ml Neb Soln) 3 ml NEB Q4HRRT PRN PRN Reason: Shortness of Breath Dexamethasone (Dexamethasone 4 Mg Tab) 6 mg PO DAILY [facility] Last Admin: 02/22/21 08:54 Dose: 6 mg Documented by: Enoxaparin Sodium (Enoxaparin 40 Mg/0.4 Ml Syringe) 40 mg SUBCUT DAILY [facility] Last Admin: 02/22/21 08:56 Dose: 40 mg Documented by: Guaifenesin/Dextromethorphan (Guaifenesin/Dextromethorphan 100-10 Mg/5 Ml Soln 1 0 Ml Cup) 10 ml PO Q4H PRN PRN Reason: Cough Ceftriaxone Sodium/Dextrose 1 (gm/ Premix) 50 mls @ 100 mls/hr IV Q24H [facility] Last Admin: 02/22/21 08:48 Dose: 100 mls/hr Documented by: Pantoprazole Sodium 40 mg/ (Sodium Chloride) 10 mls @ 300 mls/hr IV DAILY [facility] Last Admin: 02/22/21 08:50 Dose: 300 mls/hr Documented by: Levothyroxine Sodium (Levothyroxine 75 Mcg Tab) 75 mcg PO ACBREAKFAST [facility] Last Admin: 02/22/21 06:34 Dose: 75 mcg Documented by: Magnesium Oxide (Magnesium Oxide 400 Mg Tab) 400 mg PO BID [facility] Stop: 02/23/21 09:01 Last Admin: 02/22/21 08:53 Dose: 400 mg Documented by: Melatonin (Melatonin 3 Mg Tab) 6 mg PO BEDTIME PRN PRN Reason: Insomnia Ondansetron HCl (Ondansetron 4 Mg/2 Ml Sdv) 4 mg IVPUSH Q4H PRN PRN Reason: Nausea/Vomiting Sodium Chloride (Sodium Chloride 0.9% 10 Ml Syringe) 10 ml FLUSH ASDIRECTED PRN PRN Reason: Keep Vein Open Last Admin: 02/17/21 22:52 Dose: 10 ml Documented by: Sodium Chloride (Sodium Chloride 0.9% 2.5 Ml Syringe) 2.5 ml FLUSH ASDIRECTED PRN PRN Reason: Keep Vein Open Last Admin: 02/17/21 22:53 Dose: 2.5 ml Documented by: Sodium Phosphate (Phosphorus #1 250 Mg Tab) 250 mg PO QID [facility] Stop: 02/23/21 09:00 Last Admin: 02/22/21 08:58 Dose: 250 mg Documented by: Discontinued Medications Acetaminophen (Acetaminophen 325 Mg Tab) 650 mg PO NOW ONE Stop: 02/17/21 22:53 Last Admin: 02/17/21 22:58 Dose: 650 mg Documented by: Dexamethasone (Dexamethasone 10 Mg/Ml Sdv) 10 mg IVPUSH ONETIME ONE Stop: 02/17/21 22:36 Last Admin: 02/17/21 22:57 Dose: 10 mg Documented by: Remdesivir 200 mg/ Sodium (Chloride) 250 mls @ 250 mls/hr IV ONETIME ONE Stop: 02/17/21 22:38 Last Admin: 02/17/21 23:15 Dose: 250 mls/hr Documented by: Lactated Ringer's (Ringers, Lactated) 1,000 mls @ 999 mls/hr IV .BOLUS [facility] Last Admin: 02/17/21 22:59 Dose: 999 mls/hr Documented by: Remdesivir 100 mg/ Sodium (Chloride) 100 mls @ 100 mls/hr IV Q24H [facility] Stop: 02/21/21 22:59 Last Admin: 02/21/21 21:56 Dose: 100 mls/hr Documented by: Pantoprazole Sodium 40 mg/ (Sodium Chloride) 10 mls @ 300 mls/hr IV DAILY [facility] Potassium Chloride 40 meq/ (Sodium Chloride) 520 mls @ 130 mls/hr IV ONETIME ONE Stop: 02/21/21 12:29 Last Admin: 02/21/21 11:22 Dose: 130 mls/hr Documented by: Iopamidol (Iopamidol 755 Mg/Ml 100 Ml Bottle) 100 ml IVPUSH ONETIME ONE Stop: 02/17/21 23:51 Last Admin: 02/18/21 00:44 Dose: 100 ml Documented by: Pantoprazole Sodium (Pantoprazole 40 Mg Vial) Confirm Administered Dose 40 mg .ROUTE .STK-MED ONE Stop: 02/20/21 08:13 Last Admin: 02/20/21 09:14 Dose: Not Given Documented by: Potassium Chloride (Potassium Chloride 20 Meq Tab.Er) 40 meq PO BID [facility] Stop: 02/20/21 17:00 Last Admin: 02/20/21 09:14 Dose: Not Given Documented by: Potassium Chloride (Potassium Chloride 20 Meq Tab.Er) 40 meq PO ONETIME ONE Stop: 02/21/21 08:31 Last Admin: 02/21/21 10:07 Dose: 40 meq Documented by: - Exam Quality Assessment: Supplemental Oxygen General: Alert, Oriented HEENT: Pupils Equal, Pupils Reactive Neck: Supple, Trachea Midline Lungs: Decreased Breath Sounds, Crackles Cardiovascular: Regular Rate, Regular Rhythm GI/Abdominal Exam: Normal Bowel Sounds, Soft, Non-Tender Back Exam: Normal Inspection. No: CVA Tenderness (L), CVA Tenderness (R) Extremities: Normal Inspection, Normal Range of Motion. No: Rick's Sign, Leg Pain Peripheral Pulses: 2+: Dorsalis Pedis (L), Dorsalis Pedis (R) Skin: Warm, Dry, Intact Neurological: No New Focal Deficit - Patient Data Lab Results Last 24 hrs: Laboratory Results - last 24 hr 02/22/21 02/22/21 Range/Units 06:36 06:36 WBC 16.29 H (4.0-11.0) K/uL RBC 4.33 (4.30-5.90) M/uL Hgb 13.4 (12.0-16.0) g/dL Hct 38.9 (36.0-46.0) % MCV 89.8 (80.0-98.0) fL MCH 30.9 (27.0-32.0) pg MCHC 34.4 (31.0-37.0) g/dL RDW Std Deviation 44.9 (28.0-62.0) fl RDW Coeff of Lorelei 14 (11.0-15.0) % Plt Count 320 (150-400) K/uL MPV 9.80 (7.40-12.00) fL Add Manual Diff YES Neutrophils % (Manual) 93 H (48.0-80.0) % Band Neutrophils % 4 % Lymphocytes % (Manual) 3 L (16.0-40.0) % Nucleated RBC % 0.0 /100WBC Absolute Seg Neuts 15.1 H (1.4-5.7) Band Neutrophils # 0.7 Lymphocytes # (Manual) 0.5 L (0.6-2.4) Nucleated RBCs # 0 K/uL Sodium 140 (136-145) mmol/L Potassium 4.0 (3.5-5.1) mmol/L Chloride 104 (98-107) mmol/L Carbon Dioxide 22.1 (21.0-32.0) mmol/L BUN 9 (7.0-18.0) mg/dL Creatinine 0.7 (0.6-1.0) mg/dL Est Cr Clr Drug Dosing 49.85 mL/min Estimated GFR (MDRD) > 60.0 ml/min Glucose 86 (74-106) mg/dL Calcium 7.6 L (8.5-10.1) mg/dL Phosphorus 2.5 L (2.6-4.7) mg/dL Magnesium 1.9 (1.8-2.4) mg/dL Total Bilirubin 0.8 (0.2-1.0) mg/dL AST 70 H (15-37) IU/L ALT 82 H (14-63) IU/L Alkaline Phosphatase 51 (46-116) U/L Total Protein 5.7 L (6.4-8.2) g/dL Albumin 2.5 L (3.4-5.0) g/dL Globulin 3.2 (2.6-4.0) g/dL Albumin/Globulin Ratio 0.8 L (0.9-1.6) Result Diagrams: 02/22/21 06:36 02/22/21 06:36 Srikanth Results Last 24 hrs: Microbiology 02/18/21 01:20 Urine Culture - Final Urine Sepsis Event Note - Evaluation Sepsis Screening Result: No Definite Risk - Focused Exam Vital Signs: Vital Signs Temp Temp Pulse Resp BP Pulse Ox 02/22/21 08:00 97.0 F 107 H 20 117/57 L 87 L 02/22/21 03:13 99.8 F 02/22/21 03:09 99.9 F 94 21 H 117/62 90 L 02/22/21 00:11 78 19 92 L - Problem List & Annotations (1) UTI (urinary tract infection) SNOMED Code(s): 27287141 Code(s): N39.0 - URINARY TRACT INFECTION, SITE NOT SPECIFIED Status: Acute Current Visit: Yes (2) Pneumonia due to COVID-19 virus SNOMED Code(s): 611229037153449673 Code(s): U07.1 - COVID-19; J12.82 - PNEUMONIA DUE TO CORONAVIRUS DISEASE 2019 Status: Acute Current Visit: Yes - Problem List Review Problem List Initiated/Reviewed/Updated: Yes - My Orders Last 24 Hours: My Active Orders 02/22/21 08:31 Phosphorus #1 [Neutra-Phos] 250 mg PO QID 02/23/21 05:11 CBC WITH AUTO DIFF [HEME] DAILY COMPREHENSIVE METABOLIC PN,CMP [CHEM] DAILY 02/24/21 05:11 CBC WITH AUTO DIFF [HEME] DAILY COMPREHENSIVE METABOLIC PN,CMP [CHEM] DAILY 02/25/21 05:11 CBC WITH AUTO DIFF [HEME] DAILY COMPREHENSIVE METABOLIC PN,CMP [CHEM] DAILY - Plan Plan:: Covid pneumonia: Patient continues to require 7 to 10 L high flow. Remdesivir therapy complete. Dexamethasone 6 mg daily. Lovenox 40 mg daily. Duo nebs. Combivent. Dextromethorphan/guaifenesin. Zofran 4 mg. Pantoprazole 40 mg. Acetaminophen 650 mg as needed. Oxygen therapy. Potassium repleted. Urinary tract infection: Patient is receiving ceftriaxone 1 g daily.
[2021-02-23] MEDS: Albuterol/Ipratropium 4 GM Inhalation Spray INH SCH ×7 (00:17→23:56)
[2021-02-23] MEDS: Phosphorus #1 250 MG Tab PO SCH ×2 (00:18→06:14)
[2021-02-23] MEDS: Albuterol/Ipratropium 3.0-0.5 MG/3 ML Neb Soln NEB PRN ×2 (01:16→05:56)
[2021-02-23] MEDS: Levothyroxine 75 MCG Tab PO SCH ×2 (06:23→06:34)
--- NOTE | 2021-02-23 07:44 | PCM.PN ---
- General Info Date of Service: 02/23/21 - Review of Systems Systems Review Comment:: shortness of breath has worsened this morning, denies any fevers, cough, or chest pain - Patient Data Vitals - Most Recent: Last Vital Signs Temp 36.7 C 02/23/21 03:49 Pulse 97 02/23/21 03:49 Resp 23 H 02/23/21 03:49 BP 119/60 02/23/21 03:49 Pulse Ox 94 L 02/23/21 04:39 Weight - Most Recent: 63.957 kg I&O - Last 24 Hours: Intake & Output 02/22/21 02/23/21 02/23/21 22:59 06:59 14:59 Intake Total 910 900 Output Total 1000 950 Balance -90 -50 Lab Results Last 24 Hours: Laboratory Results - last 24 hr 02/22/21 02/22/21 Range/Units 06:36 06:36 WBC 16.29 H (4.0-11.0) K/uL RBC 4.33 (4.30-5.90) M/uL Hgb 13.4 (12.0-16.0) g/dL Hct 38.9 (36.0-46.0) % MCV 89.8 (80.0-98.0) fL MCH 30.9 (27.0-32.0) pg MCHC 34.4 (31.0-37.0) g/dL RDW Std Deviation 44.9 (28.0-62.0) fl RDW Coeff of Lorelei 14 (11.0-15.0) % Plt Count 320 (150-400) K/uL MPV 9.80 (7.40-12.00) fL Add Manual Diff YES Neutrophils % (Manual) 93 H (48.0-80.0) % Band Neutrophils % 4 % Lymphocytes % (Manual) 3 L (16.0-40.0) % Nucleated RBC % 0.0 /100WBC Absolute Seg Neuts 15.1 H (1.4-5.7) Band Neutrophils # 0.7 Lymphocytes # (Manual) 0.5 L (0.6-2.4) Nucleated RBCs # 0 K/uL Sodium 140 (136-145) mmol/L Potassium 4.0 (3.5-5.1) mmol/L Chloride 104 (98-107) mmol/L Carbon Dioxide 22.1 (21.0-32.0) mmol/L BUN 9 (7.0-18.0) mg/dL Creatinine 0.7 (0.6-1.0) mg/dL Est Cr Clr Drug Dosing 49.85 mL/min Estimated GFR (MDRD) > 60.0 ml/min Glucose 86 (74-106) mg/dL Calcium 7.6 L (8.5-10.1) mg/dL Phosphorus 2.5 L (2.6-4.7) mg/dL Magnesium 1.9 (1.8-2.4) mg/dL Total Bilirubin 0.8 (0.2-1.0) mg/dL AST 70 H (15-37) IU/L ALT 82 H (14-63) IU/L Alkaline Phosphatase 51 (46-116) U/L Total Protein 5.7 L (6.4-8.2) g/dL Albumin 2.5 L (3.4-5.0) g/dL Globulin 3.2 (2.6-4.0) g/dL Albumin/Globulin Ratio 0.8 L (0.9-1.6) Med Orders - Current: Current Medications Acetaminophen (Acetaminophen 325 Mg Tab) 650 mg PO Q4H PRN PRN Reason: Pain/Fever Last Admin: 02/22/21 03:13 Dose: 650 mg Documented by: Albuterol/Ipratropium (Albuterol/Ipratropium 4 Gm Inhalation Kila) 0 gm INH Q4H [facility] Last Admin: 02/23/21 04:48 Dose: 1 puff Documented by: Albuterol/Ipratropium (Albuterol/Ipratropium 3.0-0.5 Mg/3 Ml Neb Soln) 3 ml NEB Q4HRRT PRN PRN Reason: Shortness of Breath Last Admin: 02/23/21 05:56 Dose: 3 ml Documented by: Dexamethasone (Dexamethasone 4 Mg Tab) 6 mg PO DAILY [facility] Last Admin: 02/22/21 08:54 Dose: 6 mg Documented by: Enoxaparin Sodium (Enoxaparin 40 Mg/0.4 Ml Syringe) 40 mg SUBCUT DAILY [facility] Last Admin: 02/22/21 08:56 Dose: 40 mg Documented by: Guaifenesin/Dextromethorphan (Guaifenesin/Dextromethorphan 100-10 Mg/5 Ml Soln 10 Ml Cup) 10 ml PO Q4H PRN PRN Reason: Cough Last Admin: 02/23/21 06:14 Dose: 10 ml Documented by: Ceftriaxone Sodium/Dextrose 1 (gm/ Premix) 50 mls @ 100 mls/hr IV Q24H [facility] Last Admin: 02/22/21 08:48 Dose: 100 mls/hr Documented by: Pantoprazole Sodium 40 mg/ (Sodium Chloride) 10 mls @ 300 mls/hr IV DAILY [facility] Last Admin: 02/22/21 08:50 Dose: 300 mls/hr Documented by: Levothyroxine Sodium (Levothyroxine 75 Mcg Tab) 75 mcg PO ACBREAKFAST [facility] Last Admin: 02/23/21 06:34 Dose: Not Given Documented by: Magnesium Oxide (Magnesium Oxide 400 Mg Tab) 400 mg PO BID [facility] Stop: 02/23/21 09:01 Last Admin: 02/22/21 20:19 Dose: 400 mg Documented by: Melatonin (Melatonin 3 Mg Tab) 6 mg PO BEDTIME PRN PRN Reason: Insomnia Ondansetron HCl (Ondansetron 4 Mg/2 Ml Sdv) 4 mg IVPUSH Q4H PRN PRN Reason: Nausea/Vomiting Sodium Chloride (Sodium Chloride 0.9% 10 Ml Syringe) 10 ml FLUSH ASDIRECTED PRN PRN Reason: Keep Vein Open Last Admin: 02/17/21 22:52 Dose: 10 ml Documented by: Sodium Chloride (Sodium Chloride 0.9% 2.5 Ml Syringe) 2.5 ml FLUSH ASDIRECTED PRN PRN Reason: Keep Vein Open Last Admin: 02/17/21 22:53 Dose: 2.5 ml Documented by: Sodium Phosphate (Phosphorus #1 250 Mg Tab) 250 mg PO QID [facility] Stop: 02/23/21 09:00 Last Admin: 02/23/21 06:14 Dose: 250 mg Documented by: Discontinued Medications Acetaminophen (Acetaminophen 325 Mg Tab) 650 mg PO NOW ONE Stop: 02/17/21 22:53 Last Admin: 02/17/21 22:58 Dose: 650 mg Documented by: Dexamethasone (Dexamethasone 10 Mg/Ml Sdv) 10 mg IVPUSH ONETIME ONE Stop: 02/17/21 22:36 Last Admin: 02/17/21 22:57 Dose: 10 mg Documented by: Remdesivir 200 mg/ Sodium (Chloride) 250 mls @ 250 mls/hr IV ONETIME ONE Stop: 02/17/21 22:38 Last Admin: 02/17/21 23:15 Dose: 250 mls/hr Documented by: Lactated Ringer's (Ringers, Lactated) 1,000 mls @ 999 mls/hr IV .BOLUS [facility] Last Admin: 02/17/21 22:59 Dose: 999 mls/hr Documented by: Remdesivir 100 mg/ Sodium (Chloride) 100 mls @ 100 mls/hr IV Q24H [facility] Stop: 02/21/21 22:59 Last Admin: 02/21/21 21:56 Dose: 100 mls/hr Documented by: Pantoprazole Sodium 40 mg/ (Sodium Chloride) 10 mls @ 300 mls/hr IV DAILY [facility] Potassium Chloride 40 meq/ (Sodium Chloride) 520 mls @ 130 mls/hr IV ONETIME ONE Stop: 02/21/21 12:29 Last Admin: 02/21/21 11:22 Dose: 130 mls/hr Documented by: Iopamidol (Iopamidol 755 Mg/Ml 100 Ml Bottle) 100 ml IVPUSH ONETIME ONE Stop: 02/17/21 23:51 Last Admin: 02/18/21 00:44 Dose: 100 ml Documented by: Pantoprazole Sodium (Pantoprazole 40 Mg Vial) Confirm Administered Dose 40 mg .ROUTE .STK-MED ONE Stop: 02/20/21 08:13 Last Admin: 02/20/21 09:14 Dose: Not Given Documented by: Potassium Chloride (Potassium Chloride 20 Meq Tab.Er) 40 meq PO BID [facility] Stop: 02/20/21 17:00 Last Admin: 02/20/21 09:14 Dose: Not Given Documented by: Potassium Chloride (Potassium Chloride 20 Meq Tab.Er) 40 meq PO ONETIME ONE Stop: 02/21/21 08:31 Last Admin: 02/21/21 10:07 Dose: 40 meq Documented by: - Exam General: Alert, Oriented Lungs: Normal Respiratory Effort, Rhonchi Cardiovascular: Regular Rate, Regular Rhythm GI/Abdominal Exam: Soft, Non-Tender, No Distention Extremities: Non-Tender, No Pedal Edema Skin: Warm, Dry, Intact Neurological: No New Focal Deficit - Patient Data Lab Results Last 24 hrs: Laboratory Results - last 24 hr 02/22/21 02/22/21 Range/Units 06:36 06:36 WBC 16.29 H (4.0-11.0) K/uL RBC 4.33 (4.30-5.90) M/uL Hgb 13.4 (12.0-16.0) g/dL Hct 38.9 (36.0-46.0) % MCV 89.8 (80.0-98.0) fL MCH 30.9 (27.0-32.0) pg MCHC 34.4 (31.0-37.0) g/dL RDW Std Deviation 44.9 (28.0-62.0) fl RDW Coeff of Lorelei 14 (11.0-15.0) % Plt Count 320 (150-400) K/uL MPV 9.80 (7.40-12.00) fL Add Manual Diff YES Neutrophils % (Manual) 93 H (48.0-80.0) % Band Neutrophils % 4 % Lymphocytes % (Manual) 3 L (16.0-40.0) % Nucleated RBC % 0.0 /100WBC Absolute Seg Neuts 15.1 H (1.4-5.7) Band Neutrophils # 0.7 Lymphocytes # (Manual) 0.5 L (0.6-2.4) Nucleated RBCs # 0 K/uL Sodium 140 (136-145) mmol/L Potassium 4.0 (3.5-5.1) mmol/L Chloride 104 (98-107) mmol/L Carbon Dioxide 22.1 (21.0-32.0) mmol/L BUN 9 (7.0-18.0) mg/dL Creatinine 0.7 (0.6-1.0) mg/dL Est Cr Clr Drug Dosing 49.85 mL/min Estimated GFR (MDRD) > 60.0 ml/min Glucose 86 (74-106) mg/dL Calcium 7.6 L (8.5-10.1) mg/dL Phosphorus 2.5 L (2.6-4.7) mg/dL Magnesium 1.9 (1.8-2.4) mg/dL Total Bilirubin 0.8 (0.2-1.0) mg/dL AST 70 H (15-37) IU/L ALT 82 H (14-63) IU/L Alkaline Phosphatase 51 (46-116) U/L Total Protein 5.7 L (6.4-8.2) g/dL Albumin 2.5 L (3.4-5.0) g/dL Globulin 3.2 (2.6-4.0) g/dL Albumin/Globulin Ratio 0.8 L (0.9-1.6) Result Diagrams: 02/23/21 06:36 02/23/21 06:36 Sepsis Event Note - Evaluation Sepsis Screening Result: Sepsis Risk - Focused Exam Vital Signs: Vital Signs Temp Pulse Resp BP Pulse Ox Pulse Ox Pulse Ox 02/23/21 04:39 94 L 02/23/21 04:15 98 02/23/21 03:49 36.7 C 97 23 H 119/60 99 02/23/21 03:32 98 02/23/21 03:00 99 02/23/21 02:00 93 L 02/23/21 01:00 95 02/23/21 00:45 86 L 02/23/21 00:08 36.4 C 99 21 H 118/70 91 L 02/22/21 19:50 36.8 C 108 H 20 142/71 H 90 L - Problem List & Annotations (1) Pneumonia due to COVID-19 virus SNOMED Code(s): 057641646551588008 Code(s): U07.1 - COVID-19; J12.82 - PNEUMONIA DUE TO CORONAVIRUS DISEASE 2018 Status: Acute Current Visit: Yes (2) Respiratory failure with hypoxia SNOMED Code(s): 69088931895020911 Code(s): J96.91 - RESPIRATORY FAILURE, UNSPECIFIED WITH HYPOXIA Status: Acute Current Visit: Yes (3) UTI (urinary tract infection) SNOMED Code(s): 88225006 Code(s): N39.0 - URINARY TRACT INFECTION, SITE NOT SPECIFIED Status: Acute Current Visit: Yes - Problem List Review Problem List Initiated/Reviewed/Updated: Yes - My Orders Last 24 Hours: My Active Orders 02/23/21 06:43 CXR [Chest 1V Frontal] [CR] Routine - Plan Plan:: 80 yo female admitted with COVID pneumonia with acute hypoxic respiratory failure Hypoxic respiratory failure: increased to heated high flow this mroning COVID: continue dexamethason,Remdesivir therapy complete. CXR shows worsening infiltrate, will start Levaquin Spoke and updated patient's son Jose ([phone])
[2021-02-23 07:54] LABS: BLOOD UREA NITROGEN,BUN 8 mg/dL (7.0-18.0); CARBON DIOXIDE,CO2 20.8 mmol/L (21.0-32.0); CHLORIDE,CL 101 mmol/L (98-107); GLUCOSE RANDOM 136 mg/dL (74-106); POTASSIUM,K 3.2 mmol/L (3.5-5.1); SODIUM,NA 137 mmol/L (136-145)
--- NOTE | 2021-02-23 08:06 | CR ---
INDICATION: COVID-19 pneumonia. COMPARISON: CT chest February 18, 2021. TECHNIQUE: Portable AP chest. FINDINGS: Diffuse bilateral COVID-19 pneumonia appears progressive when compared to February 18, 2021. No pneumothorax or pleural effusion. Normal size cardiac silhouette . Hiatus hernia. IMPRESSION: Progress to bilateral COVID-19 pneumonia. Dictated by Julia Addison MD @ 02/23/2021 8:04:49 AM (Electronically Signed)
[2021-02-23] MEDS ORDERED: Potassium Chloride 20 MEQ Tab.ER PO ONE (08:30)
[2021-02-23] MEDS: Dexamethasone 4 MG Tab PO SCH (09:13)
[2021-02-23] MEDS: Levofloxacin 750 MG Tab PO SCH (09:13)
[2021-02-23] MEDS: Magnesium Oxide 400 MG Tab PO SCH (09:14)
[2021-02-23] MEDS: Pantoprazole 40 MG in Sodium Chloride 0.9% 10 ML IV SCH (09:14)
[2021-02-23] MEDS: Enoxaparin 40 MG/0.4 ML Syringe SUBCUT SCH (09:14)
[2021-02-24] MEDS: Albuterol/Ipratropium 4 GM Inhalation Spray INH SCH ×5 (04:46→19:54)
[2021-02-24] MEDS: Levothyroxine 75 MCG Tab PO SCH (06:49)
[2021-02-24 06:59] LABS: BLOOD UREA NITROGEN,BUN 11 mg/dL (7.0-18.0); CARBON DIOXIDE,CO2 21.7 mmol/L (21.0-32.0); CHLORIDE,CL 104 mmol/L (98-107); GLUCOSE RANDOM 127 mg/dL (74-106); POTASSIUM,K 4.3 mmol/L (3.5-5.1); SODIUM,NA 139 mmol/L (136-145)
--- NOTE | 2021-02-24 07:34 | PCM.PN ---
<Cynthia Calvillo - Last Filed: 02/24/21 10:52> - General Info Date of Service: 02/24/21 Admission Dx/Problem (Free Text): Admission Diagnosis/Problem Admission Diagnosis/Problem Respiratory failure with hypoxia Subjective Update: 80-year-old female admitted for Covid pneumonia. Patient has increased oxygen requirements and was switched to Vapotherm yesterday. She is currently on 45 L, 65 FiO2. Repeat chest x-ray yesterday showed worsening. She was started on levofloxacin. Patient is visibly dyspneic but states she feels fine. When in formed that her oxygen requirements have increased she states she thought she was getting better. Patient continues to ambulate to the bathroom. Patient had a bowel movement today. Patient denies issues with appetite. Patient denies fever, chills, chest pain, palpitations, headaches or dizziness. - Review of Systems General: Denies: Fever, Chills HEENT: Denies: Headaches Pulmonary: Reports: Shortness of Breath, Cough. Denies: Pleuritic Chest Pain, Sputum Cardiovascular: Reports: Dyspnea on Exertion. Denies: Chest Pain, Palpitations Gastrointestinal: Denies: Abdominal Pain, Constipation, Diarrhea, Nausea, Vomiting Genitourinary: Denies: Dysuria Musculoskeletal: Denies: Leg Pain Skin: Denies: Cyanosis Neurological: Denies: Confusion, Dizziness, Headache, Numbness, Paresthesia - Patient Data Vitals - Most Recent: Last Vital Signs Temp 96.7 F L 02/24/21 04:37 Pulse 89 02/24/21 04:37 Resp 19 02/24/21 04:37 BP 131/69 02/24/21 04:37 Pulse Ox 95 02/24/21 04:37 Weight - Most Recent: 63.957 kg I&O - Last 24 Hours: Intake & Output 02/23/21 02/24/21 02/24/21 22:59 06:59 14:59 Intake Total 1210 600 Output Total 1500 1550 Balance -290 -950 Lab Results Last 24 Hours: Laboratory Results - last 24 hr 02/23/21 02/23/21 02/24/21 Range/Units 06:36 06:36 05:38 WBC 16.69 H 14.77 H (4.0-11.0) K/uL RBC 4.20 L 4.30 (4.30-5.90) M/uL Hgb 13.1 13.4 (12.0-16.0) g/dL Hct 37.3 38.4 (36.0-46.0) % MCV 88.8 89.3 (80.0-98.0) fL MCH 31.2 31.2 (27.0-32.0) pg MCHC 35.1 34.9 (31.0-37.0) g/dL RDW Std Deviation 44.6 45.1 (28.0-62.0) fl RDW Coeff of Lorelei 14 14 (11.0-15.0) % Plt Count 318 278 (150-400) K/uL MPV 9.90 9.90 (7.40-12.00) fL Neut % (Auto) 91.8 H 92.8 H (48.0-80.0) % Lymph % (Auto) 5.5 L 3.8 L (16.0-40.0) % Dare % (Auto) 2.6 3.3 (0.0-15.0) % Eos % (Auto) 0.0 0.0 (0.0-7.0) % Baso % (Auto) 0.1 0.1 (0.0-1.5) % Neut # (Auto) 15.3 H 13.7 H (1.4-5.7) K/uL Lymph # (Auto) 0.9 0.6 (0.6-2.4) K/uL Dare # (Auto) 0.4 0.5 (0.0-0.8) K/uL Eos # (Auto) 0.0 0.0 (0.0-0.7) K/uL Baso # (Auto) 0.0 0.0 (0.0-0.1) K/uL Nucleated RBC % 0.0 0.0 /100WBC Nucleated RBCs # 0 0 K/uL Sodium 137 (136-145) mmol/L Potassium 3.2 L (3.5-5.1) mmol/L Chloride 101 (98-107) mmol/L Carbon Dioxide 20.8 L (21.0-32.0) mmol/L BUN 8 (7.0-18.0) mg/dL Creatinine 0.7 (0.6-1.0) mg/dL Est Cr Clr Drug Dosing 49.85 mL/min Estimated GFR (MDRD) > 60.0 ml/min Glucose 136 H (74-106) mg/dL Calcium 7.5 L (8.5-10.1) mg/dL Total Bilirubin 0.9 (0.2-1.0) mg/dL AST 69 H (15-37) IU/L ALT 66 H (14-63) IU/L Alkaline Phosphatase 64 (46-116) U/L Total Protein 6.1 L (6.4-8.2) g/dL Albumin 2.4 L (3.4-5.0) g/dL Globulin 3.7 (2.6-4.0) g/dL Albumin/Globulin Ratio 0.7 L (0.9-1.6) 02/24/21 Range/Units 05:38 WBC (4.0-11.0) K/uL RBC (4.30-5.90) M/uL Hgb (12.0-16.0) g/dL Hct (36.0-46.0) % MCV (80.0-98.0) fL MCH (27.0-32.0) pg MCHC (31.0-37.0) g/dL RDW Std Deviation (28.0-62.0) fl RDW Coeff of Lorelei (11.0-15.0) % Plt Count (150-400) K/uL MPV (7.40-12.00) fL Neut % (Auto) (48.0-80.0) % Lymph % (Auto) (16.0-40.0) % Dare % (Auto) (0.0-15.0) % Eos % (Auto) (0.0-7.0) % Baso % (Auto) (0.0-1.5) % Neut # (Auto) (1.4-5.7) K/uL Lymph # (Auto) (0.6-2.4) K/uL Dare # (Auto) (0.0-0.8) K/uL Eos # (Auto) (0.0-0.7) K/uL Baso # (Auto) (0.0-0.1) K/uL Nucleated RBC % /100WBC Nucleated RBCs # K/uL Sodium 139 (136-145) mmol/L Potassium 4.3 (3.5-5.1) mmol/L Chloride 104 (98-107) mmol/L Carbon Dioxide 21.7 (21.0-32.0) mmol/L BUN 11 (7.0-18.0) mg/dL Creatinine 0.6 (0.6-1.0) mg/dL Est Cr Clr Drug Dosing 58.16 mL/min Estimated GFR (MDRD) > 60.0 ml/min Glucose 127 H (74-106) mg/dL Calcium 7.7 L (8.5-10.1) mg/dL Total Bilirubin 0.8 (0.2-1.0) mg/dL AST 56 H (15-37) IU/L ALT 61 (14-63) IU/L Alkaline Phosphatase 61 (46-116) U/L Total Protein 5.9 L (6.4-8.2) g/dL Albumin 2.3 L (3.4-5.0) g/dL Globulin 3.6 (2.6-4.0) g/dL Albumin/Globulin Ratio 0.6 L (0.9-1.6) Med Orders - Current: Current Medications Acetaminophen (Acetaminophen 325 Mg Tab) 650 mg PO Q4H PRN PRN Reason: Pain/Fever Last Admin: 02/22/21 03:13 Dose: 650 mg Documented by: Albuterol/Ipratropium (Albuterol/Ipratropium 4 Gm Inhalation [place]) 0 gm INH Q4H [facility] Last Admin: 02/24/21 04:46 Dose: 1 puff Documented by: Albuterol/Ipratropium (Albuterol/Ipratropium 3.0-0.5 Mg/3 Ml Neb Soln) 3 ml NEB Q4HRRT PRN PRN Reason: Shortness of Breath Last Admin: 02/23/21 05:56 Dose: 3 ml Documented by: Dexamethasone (Dexamethasone 4 Mg Tab) 6 mg PO DAILY [facility] Last Admin: 02/23/21 09:13 Dose: 6 mg Documented by: Enoxaparin Sodium (Enoxaparin 40 Mg/0.4 Ml Syringe) 40 mg SUBCUT DAILY [facility] Last Admin: 02/23/21 09:14 Dose: 40 mg Documented by: Guaifenesin/Dextromethorphan (Guaifenesin/Dextromethorphan 100-10 Mg/5 Ml Soln 10 Ml Cup) 10 ml PO Q4H PRN PRN Reason: Cough Last Admin: 02/23/21 06:14 Dose: 10 ml Documented by: Pantoprazole Sodium 40 mg/ (Sodium Chloride) 10 mls @ 300 mls/hr IV DAILY [facility] Last Admin: 02/23/21 09:14 Dose: 300 mls/hr Documented by: Levofloxacin (Levofloxacin 750 Mg Tab) 750 mg PO Q24H [facility] Last Admin: 02/23/21 09:13 Dose: 750 mg Documented by: Levothyroxine Sodium (Levothyroxine 75 Mcg Tab) 75 mcg PO ACBREAKFAST [facility] Last Admin: 02/24/21 06:49 Dose: 75 mcg Documented by: Melatonin (Melatonin 3 Mg Tab) 6 mg PO BEDTIME PRN PRN Reason: Insomnia Ondansetron HCl (Ondansetron 4 Mg/2 Ml Sdv) 4 mg IVPUSH Q4H PRN PRN Reason: Nausea/Vomiting Sodium Chloride (Sodium Chloride 0.9% 10 Ml Syringe) 10 ml FLUSH ASDIRECTED PRN PRN Reason: Keep Vein Open Last Admin: 02/17/21 22:52 Dose: 10 ml Documented by: Sodium Chloride (Sodium Chloride 0.9% 2.5 Ml Syringe) 2.5 ml FLUSH ASDIRECTED PRN PRN Reason: Keep Vein Open Last Admin: 02/17/21 22:53 Dose: 2.5 ml Documented by: Discontinued Medications Acetaminophen (Acetaminophen 325 Mg Tab) 650 mg PO NOW ONE Stop: 02/17/21 22:53 Last Admin: 02/17/21 22:58 Dose: 650 mg Documented by: Dexamethasone (Dexamethasone 10 Mg/Ml Sdv) 10 mg IVPUSH ONETIME ONE Stop: 02/17/21 22:36 Last Admin: 02/17/21 22:57 Dose: 10 mg Documented by: Remdesivir 200 mg/ Sodium (Chloride) 250 mls @ 250 mls/hr IV ONETIME ONE Stop: 02/17/21 22:38 Last Admin: 02/17/21 23:15 Dose: 250 mls/hr Documented by: Lactated Ringer's (Ringers, Lactated) 1,000 mls @ 999 mls/hr IV .BOLUS [facility] Last Admin: 02/17/21 22:59 Dose: 999 mls/hr Documented by: Remdesivir 100 mg/ Sodium (Chloride) 100 mls @ 100 mls/hr IV Q24H [facility] Stop: 02/21/21 22:59 Last Admin: 02/21/21 21:56 Dose: 100 mls/hr Documented by: Pantoprazole Sodium 40 mg/ (Sodium Chloride) 10 mls @ 300 mls/hr IV DAILY [facility] Ceftriaxone Sodium/Dextrose 1 (gm/ Premix) 50 mls @ 100 mls/hr IV Q24H [facility] Last Admin: 02/22/21 08:48 Dose: 100 mls/hr Documented by: Potassium Chloride 40 meq/ (Sodium Chloride) 520 mls @ 130 mls/hr IV ONETIME ONE Stop: 02/21/21 12:29 Last Admin: 02/21/21 11:22 Dose: 130 mls/hr Documented by: Iopamidol (Iopamidol 755 Mg/Ml 100 Ml Bottle) 100 ml IVPUSH ONETIME ONE Stop: 02/17/21 23:51 Last Admin: 02/18/21 00:44 Dose: 100 ml Documented by: Magnesium Oxide (Magnesium Oxide 400 Mg Tab) 400 mg PO BID [facility] Stop: 02/23/21 09:01 Last Admin: 02/23/21 09:14 Dose: 400 mg Documented by: Pantoprazole Sodium (Pantoprazole 40 Mg Vial) Confirm Administered Dose 40 mg .ROUTE .STK-MED ONE Stop: 02/20/21 08:13 Last Admin: 02/20/21 09:14 Dose: Not Given Documented by: Potassium Chloride (Potassium Chloride 20 Meq Tab.Er) 40 meq PO BID [facility] Stop: 02/20/21 17:00 Last Admin: 02/20/21 09:14 Dose: Not Given Documented by: Potassium Chloride (Potassium Chloride 20 Meq Tab.Er) 40 meq PO ONETIME ONE Stop: 02/21/21 08:31 Last Admin: 02/21/21 10:07 Dose: 40 meq Documented by: Potassium Chloride (Potassium Chloride 20 Meq Tab.Er) 40 meq PO ONETIME ONE Stop: 02/23/21 08:31 Last Admin: 02/23/21 09:13 Dose: 40 meq Documented by: Sodium Phosphate (Phosphorus #1 250 Mg Tab) 250 mg PO QID [facility] Stop: 02/23/21 09:00 Last Admin: 02/23/21 06:14 Dose: 250 mg Documented by: - Exam Quality Assessment: Supplemental Oxygen General: Alert, Oriented, Cooperative, Other (Dyspneic) HEENT: Pupils Equal, Pupils Reactive Neck: Supple, Trachea Midline Lungs: Decreased Breath Sounds, Rales Cardiovascular: Regular Rate, Regular Rhythm, No Murmurs GI/Abdominal Exam: Normal Bowel Sounds, Soft, Non-Tender, No Distention Back Exam: Normal Inspection Extremities: Normal Inspection, Normal Range of Motion, Non-Tender, No Pedal Edema. No: Rick's Sign Peripheral Pulses: 2+: Dorsalis Pedis (L), Dorsalis Pedis (R) Skin: Warm, Dry, Intact Neurological: No New Focal Deficit - Patient Data Lab Results Last 24 hrs: Laboratory Results - last 24 hr 02/23/21 02/23/21 02/24/21 Range/Units 06:36 06:36 05:38 WBC 16.69 H 14.77 H (4.0-11.0) K/uL RBC 4.20 L 4.30 (4.30-5.90) M/uL Hgb 13.1 13.4 (12.0-16.0) g/dL Hct 37.3 38.4 (36.0-46.0) % MCV 88.8 89.3 (80.0-98.0) fL MCH 31.2 31.2 (27.0-32.0) pg MCHC 35.1 34.9 (31.0-37.0) g/dL RDW Std Deviation 44.6 45.1 (28.0-62.0) fl RDW Coeff of Lorelei 14 14 (11.0-15.0) % Plt Count 318 278 (150-400) K/uL MPV 9.90 9.90 (7.40-12.00) fL Neut % (Auto) 91.8 H 92.8 H (48.0-80.0) % Lymph % (Auto) 5.5 L 3.8 L (16.0-40.0) % Dare % (Auto) 2.6 3.3 (0.0-15.0) % Eos % (Auto) 0.0 0.0 (0.0-7.0) % Baso % (Auto) 0.1 0.1 (0.0-1.5) % Neut # (Auto) 15.3 H 13.7 H (1.4-5.7) K/uL Lymph # (Auto) 0.9 0.6 (0.6-2.4) K/uL Dare # (Auto) 0.4 0.5 (0.0-0.8) K/uL Eos # (Auto) 0.0 0.0 (0.0-0.7) K/uL Baso # (Auto) 0.0 0.0 (0.0-0.1) K/uL Nucleated RBC % 0.0 0.0 /100WBC Nucleated RBCs # 0 0 K/uL Sodium 137 (136-145) mmol/L Potassium 3.2 L (3.5-5.1) mmol/L Chloride 101 (98-107) mmol/L Carbon Dioxide 20.8 L (21.0-32.0) mmol/L BUN 8 (7.0-18.0) mg/dL Creatinine 0.7 (0.6-1.0) mg/dL Est Cr Clr Drug Dosing 49.85 mL/min Estimated GFR (MDRD) > 60.0 ml/min Glucose 136 H (74-106) mg/dL Calcium 7.5 L (8.5-10.1) mg/dL Total Bilirubin 0.9 (0.2-1.0) mg/dL AST 69 H (15-37) IU/L ALT 66 H (14-63) IU/L Alkaline Phosphatase 64 (46-116) U/L Total Protein 6.1 L (6.4-8.2) g/dL Albumin 2.4 L (3.4-5.0) g/dL Globulin 3.7 (2.6-4.0) g/dL Albumin/Globulin Ratio 0.7 L (0.9-1.6) 02/24/21 Range/Units 05:38 WBC (4.0-11.0) K/uL RBC (4.30-5.90) M/uL Hgb (12.0-16.0) g/dL Hct (36.0-46.0) % MCV (80.0-98.0) fL MCH (27.0-32.0) pg MCHC (31.0-37.0) g/dL RDW Std Deviation (28.0-62.0) fl RDW Coeff of Lorelei (11.0-15.0) % Plt Count (150-400) K/uL MPV (7.40-12.00) fL Neut % (Auto) (48.0-80.0) % Lymph % (Auto) (16.0-40.0) % Dare % (Auto) (0.0-15.0) % Eos % (Auto) (0.0-7.0) % Baso % (Auto) (0.0-1.5) % Neut # (Auto) (1.4-5.7) K/uL Lymph # (Auto) (0.6-2.4) K/uL Dare # (Auto) (0.0-0.8) K/uL Eos # (Auto) (0.0-0.7) K/uL Baso # (Auto) (0.0-0.1) K/uL Nucleated RBC % /100WBC Nucleated RBCs # K/uL Sodium 139 (136-145) mmol/L Potassium 4.3 (3.5-5.1) mmol/L Chloride 104 (98-107) mmol/L Carbon Dioxide 21.7 (21.0-32.0) mmol/L BUN 11 (7.0-18.0) mg/dL Creatinine 0.6 (0.6-1.0) mg/dL Est Cr Clr Drug Dosing 58.16 mL/min Estimated GFR (MDRD) > 60.0 ml/min Glucose 127 H (74-106) mg/dL Calcium 7.7 L (8.5-10.1) mg/dL Total Bilirubin 0.8 (0.2-1.0) mg/dL AST 56 H (15-37) IU/L ALT 61 (14-63) IU/L Alkaline Phosphatase 61 (46-116) U/L Total Protein 5.9 L (6.4-8.2) g/dL Albumin 2.3 L (3.4-5.0) g/dL Globulin 3.6 (2.6-4.0) g/dL Albumin/Globulin Ratio 0.6 L (0.9-1.6) Result Diagrams: 02/24/21 05:38 02/24/21 05:38 Sepsis Event Note - Evaluation Sepsis Screening Result: No Definite Risk - Focused Exam Vital Signs: Vital Signs Temp Pulse Resp BP Pulse Ox 02/24/21 04:37 96.7 F L 89 19 131/69 95 02/24/21 00:27 94 L 02/23/21 23:43 98.1 F 91 21 H 131/82 02/23/21 20:19 98.4 F 95 20 145/57 H 89 L - Problem List & Annotations (1) UTI (urinary tract infection) SNOMED Code(s): 70906119 Code(s): N39.0 - URINARY TRACT INFECTION, SITE NOT SPECIFIED Status: Acute Current Visit: Yes (2) Pneumonia due to COVID-19 virus SNOMED Code(s): 804449173634950624 Code(s): U07.1 - COVID-19; J12.82 - PNEUMONIA DUE TO CORONAVIRUS DISEASE 2019 Status: Acute Current Visit: Yes - Problem List Review Problem List Initiated/Reviewed/Updated: Yes - My Orders Last 24 Hours: My Active Orders 02/25/21 05:11 CBC WITH AUTO DIFF [HEME] DAILY COMPREHENSIVE METABOLIC PN,CMP [CHEM] DAILY - Plan Plan:: 80 yo female admitted with COVID pneumonia with acute hypoxic respiratory failure Patient is currently on Vapotherm, 45 L, FiO2 65. Patient completed remdesivir. Continue dexamethasone. CXR showed worsening infiltrate, day 2 of Levaquin. Spoke and updated patient's son Jose ([phone]) <Joyce Tripp - Last Filed: 02/25/21 16:10> - General Info Subjective Update: I have seen and evaluated the patient and agree with the residents note unless specified in my note - Patient Data Vitals - Most Recent: Last Vital Signs Temp 36.1 C 02/25/21 12:00 Pulse 103 H 02/24/21 18:00 Resp 26 H 02/25/21 13:00 BP 111/36 L 02/25/21 13:00 Pulse Ox 90 L 02/25/21 13:00 I&O - Last 24 Hours: Intake & Output 02/25/21 02/25/21 02/25/21 06:59 14:59 22:59 Intake Total 350 Output Total 900 Balance -550 Lab Results Last 24 Hours: Laboratory Results - last 24 hr 02/23/21 02/25/21 02/25/21 Range/Units 05:38 05:27 05:27 WBC 14.15 H (4.0-11.0) K/uL RBC 4.53 (4.30-5.90) M/uL Hgb 14.2 (12.0-16.0) g/dL Hct 40.5 (36.0-46.0) % MCV 89.4 (80.0-98.0) fL MCH 31.3 (27.0-32.0) pg MCHC 35.1 (31.0-37.0) g/dL RDW Std Deviation 46.0 (28.0-62.0) fl RDW Coeff of Lorelei 14 (11.0-15.0) % Plt Count 236 (150-400) K/uL MPV 10.00 (7.40-12.00) fL Add Manual Diff YES Neutrophils % (Manual) 84 H (48.0-80.0) % Band Neutrophils % 5 % Lymphocytes % (Manual) 7 L (16.0-40.0) % Monocytes % (Manual) 4 (0.0-15.0) % Absolute Seg Neuts 11.9 H (1.4-5.7) Band Neutrophils # 0.7 Lymphocytes # (Manual) 1.0 (0.6-2.4) Monocytes # (Manual) 0.6 (0.0-0.8) Sodium 139 (136-145) mmol/L Potassium 4.0 (3.5-5.1) mmol/L Chloride 103 (98-107) mmol/L Carbon Dioxide 24.6 (21.0-32.0) mmol/L BUN 14 (7.0-18.0) mg/dL Creatinine 0.6 (0.6-1.0) mg/dL Est Cr Clr Drug Dosing 58.16 mL/min Estimated GFR (MDRD) > 60.0 ml/min Glucose 117 H (74-106) mg/dL Calcium 7.7 L (8.5-10.1) mg/dL Total Bilirubin 0.7 (0.2-1.0) mg/dL AST 53 H (15-37) IU/L ALT 58 (14-63) IU/L Alkaline Phosphatase 67 (46-116) U/L Total Protein 6.1 L (6.4-8.2) g/dL Albumin 2.3 L (3.4-5.0) g/dL Globulin 3.8 (2.6-4.0) g/dL Albumin/Globulin Ratio 0.6 L (0.9-1.6) Procalcitonin 0.40 H ng/mL Med Orders - Current: Current Medications Acetaminophen (Acetaminophen 325 Mg Tab) 650 mg PO Q4H PRN PRN Reason: Pain/Fever Last Admin: 02/22/21 03:13 Dose: 650 mg Documented by: Albuterol/Ipratropium (Albuterol/Ipratropium 4 Gm Inhalation [place]) 0 gm INH Q4H [facility] Last Admin: 02/25/21 12:09 Dose: 1 puff Documented by: Albuterol/Ipratropium (Albuterol/Ipratropium 3.0-0.5 Mg/3 Ml Neb Soln) 3 ml NEB Q4HRRT PRN PRN Reason: Shortness of Breath Last Admin: 02/25/21 02:16 Dose: 3 ml Documented by: Dexamethasone (Dexamethasone 4 Mg Tab) 6 mg PO DAILY [facility] Last Admin: 02/25/21 08:16 Dose: 6 mg Documented by: Enoxaparin Sodium (Enoxaparin 40 Mg/0.4 Ml Syringe) 40 mg SUBCUT DAILY [facility] Last Admin: 02/25/21 08:18 Dose: 40 mg Documented by: Guaifenesin/Dextromethorphan (Guaifenesin/Dextromethorphan 100-10 Mg/5 Ml Soln 10 Ml Cup) 10 ml PO Q4H PRN PRN Reason: Cough Last Admin: 02/23/21 06:14 Dose: 10 ml Documented by: Pantoprazole Sodium 40 mg/ (Sodium Chloride) 10 mls @ 300 mls/hr IV DAILY [facility] Last Admin: 02/25/21 08:17 Dose: 300 mls/hr Documented by: Levofloxacin (Levofloxacin 750 Mg Tab) 750 mg PO Q24H [facility] Last Admin: 02/25/21 08:16 Dose: 750 mg Documented by: Levothyroxine Sodium (Levothyroxine 75 Mcg Tab) 75 mcg PO ACBREAKFAST [facility] Last Admin: 02/25/21 08:16 Dose: 75 mcg Documented by: Melatonin (Melatonin 3 Mg Tab) 6 mg PO BEDTIME PRN PRN Reason: Insomnia Last Admin: 02/24/21 20:42 Dose: 6 mg Documented by: Ondansetron HCl (Ondansetron 4 Mg/2 Ml Sdv) 4 mg IVPUSH Q4H PRN PRN Reason: Nausea/Vomiting Sodium Chloride (Sodium Chloride 0.9% 10 Ml Syringe) 10 ml FLUSH ASDIRECTED PRN PRN Reason: Keep Vein Open Last Admin: 02/17/21 22:52 Dose: 10 ml Documented by: Sodium Chloride (Sodium Chloride 0.9% 2.5 Ml Syringe) 2.5 ml FLUSH ASDIRECTED PRN PRN Reason: Keep Vein Open Last Admin: 02/17/21 22:53 Dose: 2.5 ml Documented by: Discontinued Medications Acetaminophen (Acetaminophen 325 Mg Tab) 650 mg PO NOW ONE Stop: 02/17/21 22:53 Last Admin: 02/17/21 22:58 Dose: 650 mg Documented by: Dexamethasone (Dexamethasone 10 Mg/Ml Sdv) 10 mg IVPUSH ONETIME ONE Stop: 02/17/21 22:36 Last Admin: 02/17/21 22:57 Dose: 10 mg Documented by: Remdesivir 200 mg/ Sodium (Chloride) 250 mls @ 250 mls/hr IV ONETIME ONE Stop: 02/17/21 22:38 Last Admin: 02/17/21 23:15 Dose: 250 mls/hr Documented by: Lactated Ringer's (Ringers, Lactated) 1,000 mls @ 999 mls/hr IV .BOLUS [facility] Last Admin: 02/17/21 22:59 Dose: 999 mls/hr Documented by: Remdesivir 100 mg/ Sodium (Chloride) 100 mls @ 100 mls/hr IV Q24H [facility] Stop: 02/21/21 22:59 Last Admin: 02/21/21 21:56 Dose: 100 mls/hr Documented by: Pantoprazole Sodium 40 mg/ (Sodium Chloride) 10 mls @ 300 mls/hr IV DAILY [facility] Ceftriaxone Sodium/Dextrose 1 (gm/ Premix) 50 mls @ 100 mls/hr IV Q24H [facility] Last Admin: 02/22/21 08:48 Dose: 100 mls/hr Documented by: Potassium Chloride 40 meq/ (Sodium Chloride) 520 mls @ 130 mls/hr IV ONETIME ONE Stop: 02/21/21 12:29 Last Admin: 02/21/21 11:22 Dose: 130 mls/hr Documented by: Iopamidol (Iopamidol 755 Mg/Ml 100 Ml Bottle) 100 ml IVPUSH ONETIME ONE Stop: 02/17/21 23:51 Last Admin: 02/18/21 00:44 Dose: 100 ml Documented by: Magnesium Oxide (Magnesium Oxide 400 Mg Tab) 400 mg PO BID [facility] Stop: 02/23/21 09:01 Last Admin: 02/23/21 09:14 Dose: 400 mg Documented by: Pantoprazole Sodium (Pantoprazole 40 Mg Vial) Confirm Administered Dose 40 mg .ROUTE .STK-MED ONE Stop: 02/20/21 08:13 Last Admin: 02/20/21 09:14 Dose: Not Given Documented by: Potassium Chloride (Potassium Chloride 20 Meq Tab.Er) 40 meq PO BID [facility] Stop: 02/20/21 17:00 Last Admin: 02/20/21 09:14 Dose: Not Given Documented by: Potassium Chloride (Potassium Chloride 20 Meq Tab.Er) 40 meq PO ONETIME ONE Stop: 02/21/21 08:31 Last Admin: 02/21/21 10:07 Dose: 40 meq Documented by: Potassium Chloride (Potassium Chloride 20 Meq Tab.Er) 40 meq PO ONETIME ONE Stop: 02/23/21 08:31 Last Admin: 02/23/21 09:13 Dose: 40 meq Documented by: Sodium Phosphate (Phosphorus #1 250 Mg Tab) 250 mg PO QID [facility] Stop: 02/23/21 09:00 Last Admin: 02/23/21 06:14 Dose: 250 mg Documented by: - Patient Data Lab Results Last 24 hrs: Laboratory Results - last 24 hr 02/23/21 02/25/21 02/25/21 Range/Units 05:38 05:27 05:27 WBC 14.15 H (4.0-11.0) K/uL RBC 4.53 (4.30-5.90) M/uL Hgb 14.2 (12.0-16.0) g/dL Hct 40.5 (36.0-46.0) % MCV 89.4 (80.0-98.0) fL MCH 31.3 (27.0-32.0) pg MCHC 35.1 (31.0-37.0) g/dL RDW Std Deviation 46.0 (28.0-62.0) fl RDW Coeff of Lorelei 14 (11.0-15.0) % Plt Count 236 (150-400) K/uL MPV 10.00 (7.40-12.00) fL Add Manual Diff YES Neutrophils % (Manual) 84 H (48.0-80.0) % Band Neutrophils % 5 % Lymphocytes % (Manual) 7 L (16.0-40.0) % Monocytes % (Manual) 4 (0.0-15.0) % Absolute Seg Neuts 11.9 H (1.4-5.7) Band Neutrophils # 0.7 Lymphocytes # (Manual) 1.0 (0.6-2.4) Monocytes # (Manual) 0.6 (0.0-0.8) Sodium 139 (136-145) mmol/L Potassium 4.0 (3.5-5.1) mmol/L Chloride 103 (98-107) mmol/L Carbon Dioxide 24.6 (21.0-32.0) mmol/L BUN 14 (7.0-18.0) mg/dL Creatinine 0.6 (0.6-1.0) mg/dL Est Cr Clr Drug Dosing 58.16 mL/min Estimated GFR (MDRD) > 60.0 ml/min Glucose 117 H (74-106) mg/dL Calcium 7.7 L (8.5-10.1) mg/dL Total Bilirubin 0.7 (0.2-1.0) mg/dL AST 53 H (15-37) IU/L ALT 58 (14-63) IU/L Alkaline Phosphatase 67 (46-116) U/L Total Protein 6.1 L (6.4-8.2) g/dL Albumin 2.3 L (3.4-5.0) g/dL Globulin 3.8 (2.6-4.0) g/dL Albumin/Globulin Ratio 0.6 L (0.9-1.6) Procalcitonin 0.40 H ng/mL Result Diagrams: 02/25/21 05:27 02/25/21 05:27 Sepsis Event Note - Focused Exam Vital Signs: Vital Signs Temp Resp BP Pulse Ox 02/25/21 13:00 26 H 111/36 L 90 L 02/25/21 12:00 36.1 C 15 111/42 L 91 L 02/25/21 11:00 27 H 110/50 L 90 L 02/25/21 10:00 21 H 118/49 L 84 L 02/25/21 09:00 18 105/51 L 85 L 02/25/21 08:00 36 C L 26 H 112/42 L 88 L 02/25/21 07:00 20 91/44 L 91 L 02/25/21 06:00 26 H 100/42 L 91 L 02/25/21 05:00 17 116/35 L 92 L - Problem List & Annotations (1) Hypothyroidism SNOMED Code(s): 89803079 Code(s): E03.9 - HYPOTHYROIDISM, UNSPECIFIED Status: Acute Current Visit: Yes (2) Pneumonia due to COVID-19 virus SNOMED Code(s): 066470743808600800 Code(s): U07.1 - COVID-19; J12.82 - PNEUMONIA DUE TO CORONAVIRUS DISEASE 2019 Status: Acute Current Visit: Yes (3) Respiratory failure with hypoxia SNOMED Code(s): 77819137500870484 Code(s): J96.91 - RESPIRATORY FAILURE, UNSPECIFIED WITH HYPOXIA Status: Acute Current Visit: Yes - My Orders Last 24 Hours: My Active Orders 02/24/21 16:56 Urinary Catheter Assessment [RC] ASDIRECTED 02/24/21 17:00 Contreras Catheter Insertion [Insert Urinary Catheter] [OM.PC] Q24H 02/26/21 05:11 BMP [BASIC METABOLIC PANEL,BMP] [CHEM] AM CBC WITH AUTO DIFF [HEME] AM MAGNESIUM [CHEM] AM PHOSPHORUS [CHEM] AM
[2021-02-24] MEDS: Levofloxacin 750 MG Tab PO SCH (08:34)
[2021-02-24] MEDS: Dexamethasone 4 MG Tab PO SCH (08:35)
[2021-02-24] MEDS: Enoxaparin 40 MG/0.4 ML Syringe SUBCUT SCH (08:36)
[2021-02-24] MEDS: Pantoprazole 40 MG in Sodium Chloride 0.9% 10 ML IV SCH (08:39)
--- NOTE | 2021-02-24 13:21 | PCM.SN.2 ---
- Free Text/Narrative Note: seen at beside, increasing oxygen requirement with Fi02 >90% , will transfer to ICU for close monitoring and higher level of care. Time Documentation
--- NOTE | 2021-02-24 17:47 | PN ---
[facility] Physician - Brief Progress [id number]/25/2021 17:38[facility] Scot Hankins, LISA - YVONNE [facility] - YVONNE TAMANNA MELGAR, COVID+Date of Service 02/24/2021 17:38HPI/ Events of Note eICU Admission Note80 y/o female with PMH of HLP and HTN, Diagnosed with COVID 5 days rior admission. Presented to ED with poor oral intake, weakness and dyspnea. Patient has started on O2 via NC and admitted to the hospital due to new hypoxia. PEr documentation last dose of remdesivir was 02/21, patient also received dexamethasone. CXR 02/23 showed worsening airspace disease. on 02/24 , patient was admitted to ICU due to worsening hypoxia. CUrrently on HHFNC.Per RN report, patient O2 sat at rest is >90 but desats quickly with any acitivty. Otherwise patient is resting comfortably.eI CU Recommendations:Continue HHFNCSelf proning as tolerated.COVID treatment per hospital policyPUD and DVT prophylaxisThank you for allowing us to participate in the care of your patient.Interventions Akanksha almeida-Hypoxemia - evaluation and management, Infection - evaluation and managementIntermediate-Communic ation with other healthcare providers and/or familyElectronically Signed by: KAREN LARKIN) on 17:47
--- NOTE | 2021-02-24 19:04 | PCM.SN.2 ---
- Free Text/Narrative Note: We spoke to the family at bedside, reportedly patient's other son was demanding for us to start IV ivermectin, they also were demanding that patient be transferred to [place] for management. We explained to the family about the lack of evidence for ivermectin as well as the safety issues arise with its use. In the fact that we do not carry it in the hospital. Patient's son got pretty aggressive towards the resident, accompanying family member was able to calm him down a little bit. We did explain to them we will try and see if transfer is possible but is highly unlikely as no beds are available at this point.. Attempt to try to 1 call center for possible transfer there was no beds are available. Family was informed. Time Documentation
[2021-02-24] MEDS: Melatonin 3 MG Tab PO PRN (20:42)
[2021-02-24] MEDS: Albuterol/Ipratropium 3.0-0.5 MG/3 ML Neb Soln NEB PRN (20:42)
[2021-02-25] MEDS: Albuterol/Ipratropium 4 GM Inhalation Spray INH SCH ×7 (00:28→23:17)
[2021-02-25] MEDS: Albuterol/Ipratropium 3.0-0.5 MG/3 ML Neb Soln NEB PRN ×2 (02:16→21:49)
[2021-02-25 06:38] LABS: BLOOD UREA NITROGEN,BUN 14 mg/dL (7.0-18.0); CARBON DIOXIDE,CO2 24.6 mmol/L (21.0-32.0); CHLORIDE,CL 103 mmol/L (98-107); GLUCOSE RANDOM 117 mg/dL (74-106); SODIUM,NA 139 mmol/L (136-145)
[2021-02-25] MEDS: Levothyroxine 75 MCG Tab PO SCH (08:16)
[2021-02-25] MEDS: Levofloxacin 750 MG Tab PO SCH (08:16)
[2021-02-25] MEDS: Dexamethasone 4 MG Tab PO SCH (08:16)
[2021-02-25] MEDS: Pantoprazole 40 MG in Sodium Chloride 0.9% 10 ML IV SCH (08:17)
[2021-02-25] MEDS: Enoxaparin 40 MG/0.4 ML Syringe SUBCUT SCH (08:18)
--- NOTE | 2021-02-25 16:05 | PCM.PN ---
- General Info Date of Service: 02/25/21 Admission Dx/Problem (Free Text): Admission Diagnosis/Problem Admission Diagnosis/Problem Respiratory failure with hypoxia Subjective Update: 80-year-old female admitted for Covid pneumonia. Patient has increased oxygen requirements, currently needing 65% FiO2 oxygen requirement has steadily been going up, patient is awake alert oriented is comfortable Functional Status: Reports: Tolerating Diet, Ambulating, Urinating - Review of Systems General: Reports: Weakness, Fatigue, Malaise Pulmonary: Reports: Shortness of Breath, Cough, Sputum Cardiovascular: Reports: Dyspnea on Exertion. Denies: Chest Pain, Palpitations, Orthopnea Gastrointestinal: Denies: Abdominal Pain, Constipation, Decreased Appetite, Diarrhea Genitourinary: Denies: Dysuria, Frequency, Burning, Pain Musculoskeletal: Denies: Neck Pain, Shoulder Pain, Arm Pain Skin: Denies: Cyanosis, Jaundice, Mottled, Pallor Neurological: Denies: Confusion, Dizziness, Headache, Numbness Psychiatric: Denies: Confusion, Depression, Mood Lability - Patient Data Vitals - Most Recent: Last Vital Signs Temp 36.1 C 02/25/21 12:00 Pulse 103 H 02/24/21 18:00 Resp 26 H 02/25/21 13:00 BP 111/36 L 02/25/21 13:00 Pulse Ox 90 L 02/25/21 13:00 Weight - Most Recent: 56.019 kg I&O - Last 24 Hours: Intake & Output 02/25/21 02/25/21 02/25/21 06:59 14:59 22:59 Intake Total 350 Output Total 900 Balance -550 Lab Results Last 24 Hours: Laboratory Results - last 24 hr 02/23/21 02/25/21 02/25/21 Range/Units 05:38 05:27 05:27 WBC 14.15 H (4.0-11.0) K/uL RBC 4.53 (4.30-5.90) M/uL Hgb 14.2 (12.0-16.0) g/dL Hct 40.5 (36.0-46.0) % MCV 89.4 (80.0-98.0) fL MCH 31.3 (27.0-32.0) pg MCHC 35.1 (31.0-37.0) g/dL RDW Std Deviation 46.0 (28.0-62.0) fl RDW Coeff of Lorelei 14 (11.0-15.0) % Plt Count 236 (150-400) K/uL MPV 10.00 (7.40-12.00) fL Add Manual Diff YES Neutrophils % (Manual) 84 H (48.0-80.0) % Band Neutrophils % 5 % Lymphocytes % (Manual) 7 L (16.0-40.0) % Monocytes % (Manual) 4 (0.0-15.0) % Absolute Seg Neuts 11.9 H (1.4-5.7) Band Neutrophils # 0.7 Lymphocytes # (Manual) 1.0 (0.6-2.4) Monocytes # (Manual) 0.6 (0.0-0.8) Sodium 139 (136-145) mmol/L Potassium 4.0 (3.5-5.1) mmol/L Chloride 103 (98-107) mmol/L Carbon Dioxide 24.6 (21.0-32.0) mmol/L BUN 14 (7.0-18.0) mg/dL Creatinine 0.6 (0.6-1.0) mg/dL Est Cr Clr Drug Dosing 58.16 mL/min Estimated GFR (MDRD) > 60.0 ml/min Glucose 117 H (74-106) mg/dL Calcium 7.7 L (8.5-10.1) mg/dL Total Bilirubin 0.7 (0.2-1.0) mg/dL AST 53 H (15-37) IU/L ALT 58 (14-63) IU/L Alkaline Phosphatase 67 (46-116) U/L Total Protein 6.1 L (6.4-8.2) g/dL Albumin 2.3 L (3.4-5.0) g/dL Globulin 3.8 (2.6-4.0) g/dL Albumin/Globulin Ratio 0.6 L (0.9-1.6) Procalcitonin 0.40 H ng/mL Med Orders - Current: Current Medications Acetaminophen (Acetaminophen 325 Mg Tab) 650 mg PO Q4H PRN PRN Reason: Pain/Fever Last Admin: 02/22/21 03:13 Dose: 650 mg Documented by: Albuterol/Ipratropium (Albuterol/Ipratropium 4 Gm Inhalation [place]) 0 gm INH Q4H MONIQUE Last Admin: 02/25/21 12:09 Dose: 1 puff Documented by: Albuterol/Ipratropium (Albuterol/Ipratropium 3.0-0.5 Mg/3 Ml Neb Soln) 3 ml NEB Q4HRRT PRN PRN Reason: Shortness of Breath Last Admin: 02/25/21 02:16 Dose: 3 ml Documented by: Dexamethasone (Dexamethasone 4 Mg Tab) 6 mg PO DAILY [facility] Last Admin: 02/25/21 08:16 Dose: 6 mg Documented by: Enoxaparin Sodium (Enoxaparin 40 Mg/0.4 Ml Syringe) 40 mg SUBCUT DAILY [facility] Last Admin: 02/25/21 08:18 Dose: 40 mg Documented by: Guaifenesin/Dextromethorphan (Guaifenesin/Dextromethorphan 100-10 Mg/5 Ml Soln 10 Ml Cup) 10 ml PO Q4H PRN PRN Reason: Cough Last Admin: 02/23/21 06:14 Dose: 10 ml Documented by: Pantoprazole Sodium 40 mg/ (Sodium Chloride) 10 mls @ 300 mls/hr IV DAILY [facility] Last Admin: 02/25/21 08:17 Dose: 300 mls/hr Documented by: Levofloxacin (Levofloxacin 750 Mg Tab) 750 mg PO Q24H [facility] Last Admin: 02/25/21 08:16 Dose: 750 mg Documented by: Levothyroxine Sodium (Levothyroxine 75 Mcg Tab) 75 mcg PO ACBREAKFAST [facility] Last Admin: 02/25/21 08:16 Dose: 75 mcg Documented by: Melatonin (Melatonin 3 Mg Tab) 6 mg PO BEDTIME PRN PRN Reason: Insomnia Last Admin: 02/24/21 20:42 Dose: 6 mg Documented by: Ondansetron HCl (Ondansetron 4 Mg/2 Ml Sdv) 4 mg IVPUSH Q4H PRN PRN Reason: Nausea/Vomiting Sodium Chloride (Sodium Chloride 0.9% 10 Ml Syringe) 10 ml FLUSH ASDIRECTED PRN PRN Reason: Keep Vein Open Last Admin: 02/17/21 22:52 Dose: 10 ml Documented by: Sodium Chloride (Sodium Chloride 0.9% 2.5 Ml Syringe) 2.5 ml FLUSH ASDIRECTED PRN PRN Reason: Keep Vein Open Last Admin: 02/17/21 22:53 Dose: 2.5 ml Documented by: Discontinued Medications Acetaminophen (Acetaminophen 325 Mg Tab) 650 mg PO NOW ONE Stop: 02/17/21 22:53 Last Admin: 02/17/21 22:58 Dose: 650 mg Documented by: Dexamethasone (Dexamethasone 10 Mg/Ml Sdv) 10 mg IVPUSH ONETIME ONE Stop: 02/17/21 22:36 Last Admin: 02/17/21 22:57 Dose: 10 mg Documented by: Remdesivir 200 mg/ Sodium (Chloride) 250 mls @ 250 mls/hr IV ONETIME ONE Stop: 02/17/21 22:38 Last Admin: 02/17/21 23:15 Dose: 250 mls/hr Documented by: Lactated Ringer's (Ringers, Lactated) 1,000 mls @ 999 mls/hr IV .BOLUS [facility] Last Admin: 02/17/21 22:59 Dose: 999 mls/hr Documented by: Remdesivir 100 mg/ Sodium (Chloride) 100 mls @ 100 mls/hr IV Q24H [facility] Stop: 02/21/21 22:59 Last Admin: 02/21/21 21:56 Dose: 100 mls/hr Documented by: Pantoprazole Sodium 40 mg/ (Sodium Chloride) 10 mls @ 300 mls/hr IV DAILY [facility] Ceftriaxone Sodium/Dextrose 1 (gm/ Premix) 50 mls @ 100 mls/hr IV Q24H [facility] Last Admin: 02/22/21 08:48 Dose: 100 mls/hr Documented by: Potassium Chloride 40 meq/ (Sodium Chloride) 520 mls @ 130 mls/hr IV ONETIME ONE Stop: 02/21/21 12:29 Last Admin: 02/21/21 11:22 Dose: 130 mls/hr Documented by: Iopamidol (Iopamidol 755 Mg/Ml 100 Ml Bottle) 100 ml IVPUSH ONETIME ONE Stop: 02/17/21 23:51 Last Admin: 02/18/21 00:44 Dose: 100 ml Documented by: Magnesium Oxide (Magnesium Oxide 400 Mg Tab) 400 mg PO BID MONIQUE Stop: 02/23/21 09:01 Last Admin: 02/23/21 09:14 Dose: 400 mg Documented by: Pantoprazole Sodium (Pantoprazole 40 Mg Vial) Confirm Administered Dose 40 mg .ROUTE .STK-MED ONE Stop: 02/20/21 08:13 Last Admin: 02/20/21 09:14 Dose: Not Given Documented by: Potassium Chloride (Potassium Chloride 20 Meq Tab.Er) 40 meq PO BID [facility] Stop: 02/20/21 17:00 Last Admin: 02/20/21 09:14 Dose: Not Given Documented by: Potassium Chloride (Potassium Chloride 20 Meq Tab.Er) 40 meq PO ONETIME ONE Stop: 02/21/21 08:31 Last Admin: 02/21/21 10:07 Dose: 40 meq Documented by: Potassium Chloride (Potassium Chloride 20 Meq Tab.Er) 40 meq PO ONETIME ONE Stop: 02/23/21 08:31 Last Admin: 02/23/21 09:13 Dose: 40 meq Documented by: Sodium Phosphate (Phosphorus #1 250 Mg Tab) 250 mg PO QID [facility] Stop: 02/23/21 09:00 Last Admin: 02/23/21 06:14 Dose: 250 mg Documented by: - Exam Quality Assessment: Supplemental Oxygen Urinary Catheter Total Time: 0Days 0Hours General: Alert, Oriented Lungs: Decreased Breath Sounds, Crackles, Rales Cardiovascular: Regular Rate, Regular Rhythm GI/Abdominal Exam: Normal Bowel Sounds, Soft, Non-Tender Back Exam: Normal Inspection, Full Range of Motion - Patient Data Lab Results Last 24 hrs: Laboratory Results - last 24 hr 02/23/21 02/25/21 02/25/21 Range/Units 05:38 05:27 05:27 WBC 14.15 H (4.0-11.0) K/uL RBC 4.53 (4.30-5.90) M/uL Hgb 14.2 (12.0-16.0) g/dL Hct 40.5 (36.0-46.0) % MCV 89.4 (80.0-98.0) fL MCH 31.3 (27.0-32.0) pg MCHC 35.1 (31.0-37.0) g/dL RDW Std Deviation 46.0 (28.0-62.0) fl RDW Coeff of Lorelei 14 (11.0-15.0) % Plt Count 236 (150-400) K/uL MPV 10.00 (7.40-12.00) fL Add Manual Diff YES Neutrophils % (Manual) 84 H (48.0-80.0) % Band Neutrophils % 5 % Lymphocytes % (Manual) 7 L (16.0-40.0) % Monocytes % (Manual) 4 (0.0-15.0) % Absolute Seg Neuts 11.9 H (1.4-5.7) Band Neutrophils # 0.7 Lymphocytes # (Manual) 1.0 (0.6-2.4) Monocytes # (Manual) 0.6 (0.0-0.8) Sodium 139 (136-145) mmol/L Potassium 4.0 (3.5-5.1) mmol/L Chloride 103 (98-107) mmol/L Carbon Dioxide 24.6 (21.0-32.0) mmol/L BUN 14 (7.0-18.0) mg/dL Creatinine 0.6 (0.6-1.0) mg/dL Est Cr Clr Drug Dosing 58.16 mL/min Estimated GFR (MDRD) > 60.0 ml/min Glucose 117 H (74-106) mg/dL Calcium 7.7 L (8.5-10.1) mg/dL Total Bilirubin 0.7 (0.2-1.0) mg/dL AST 53 H (15-37) IU/L ALT 58 (14-63) IU/L Alkaline Phosphatase 67 (46-116) U/L Total Protein 6.1 L (6.4-8.2) g/dL Albumin 2.3 L (3.4-5.0) g/dL Globulin 3.8 (2.6-4.0) g/dL Albumin/Globulin Ratio 0.6 L (0.9-1.6) Procalcitonin 0.40 H ng/mL Result Diagrams: 02/25/21 05:27 02/25/21 05:27 Sepsis Event Note - Evaluation Sepsis Screening Result: Sepsis Risk - Focused Exam Vital Signs: Vital Signs Temp Resp BP Pulse Ox 02/25/21 13:00 26 H 111/36 L 90 L 02/25/21 12:00 36.1 C 15 111/42 L 91 L 02/25/21 11:00 27 H 110/50 L 90 L 02/25/21 10:00 21 H 118/49 L 84 L 02/25/21 09:00 18 105/51 L 85 L 02/25/21 08:00 36 C L 26 H 112/42 L 88 L 02/25/21 07:00 20 91/44 L 91 L 02/25/21 06:00 26 H 100/42 L 91 L 02/25/21 05:00 17 116/35 L 92 L - Problem List & Annotations (1) Hypothyroidism SNOMED Code(s): 31656700 Code(s): E03.9 - HYPOTHYROIDISM, UNSPECIFIED Status: Acute Current Visit: Yes (2) Pneumonia due to COVID-19 virus SNOMED Code(s): 400556944091322403 Code(s): U07.1 - COVID-19; J12.82 - PNEUMONIA DUE TO CORONAVIRUS DISEASE 2019 Status: Acute Current Visit: Yes (3) Respiratory failure with hypoxia SNOMED Code(s): 69208686296472168 Code(s): J96.91 - RESPIRATORY FAILURE, UNSPECIFIED WITH HYPOXIA Status: Acute Current Visit: Yes - Problem List Review Problem List Initiated/Reviewed/Updated: Yes - My Orders Last 24 Hours: My Active Orders 02/24/21 16:56 Urinary Catheter Assessment [RC] ASDIRECTED 02/24/21 17:00 Contreras Catheter Insertion [Insert Urinary Catheter] [OM.PC] Q24H - Plan Plan:: 80 yo female admitted with COVID pneumonia with acute hypoxic respiratory failure Patient is currently on Vapotherm, 55 L, FiO2 65. Patient completed remdesivir. Continue dexamethasone. CXR showed worsening infiltrate, day 2 of Levaquin. Continue duo nebs, continue Combivent Continue Lovenox for DVT prophylaxis Continue supportive care
[2021-02-25] MEDS: Melatonin 3 MG Tab PO PRN (21:49)
[2021-02-26] MEDS: Albuterol/Ipratropium 4 GM Inhalation Spray INH SCH ×6 (04:13→23:08)
[2021-02-26 06:15] LABS: BLOOD UREA NITROGEN,BUN 13 mg/dL (7.0-18.0); CARBON DIOXIDE,CO2 22.1 mmol/L (21.0-32.0); CHLORIDE,CL 103 mmol/L (98-107); GLUCOSE RANDOM 108 mg/dL (74-106); SODIUM,NA 138 mmol/L (136-145)
[2021-02-26] MEDS: Levothyroxine 75 MCG Tab PO SCH (08:36)
[2021-02-26] MEDS: Dexamethasone 4 MG Tab PO SCH (08:36)
[2021-02-26] MEDS: Levofloxacin 750 MG Tab PO SCH (08:36)
[2021-02-26] MEDS: Enoxaparin 40 MG/0.4 ML Syringe SUBCUT SCH (08:38)
[2021-02-26] MEDS: Pantoprazole 40 MG in Sodium Chloride 0.9% 10 ML IV SCH (08:38)
--- NOTE | 2021-02-26 09:39 | PN ---
[facility] Physician - Brief Progress [id number]/26/2021 15:02[facility] Renteria Scot n[place], [place] - SARAHN (ERNESTINE) - YVONNE TAMANNA MELGAR, COVID+Date of Service 02/25/2021 15:02HPI/ Events of Note eICU Progress Note80 y/o female with diagnosed with COVID 5 days prior to admission. P laced on NC initially but escalated to HHF for worsening oxygenation and transferred to ICU 02/24. Pr eviously completed remdesivir, has been maintained on decadron. Currently resting comfortably in no a cute distress. VS 107/48, 89, 31, 92% on 75%/55L. HHF increased today due to desaturation. Discussed with bedside RN, will attempt to wean down. eICU Recommendations:- continue oxygen support, wean as t olerated- patient has been unable to prone but does better on left side, will continue as tolerated- continue decadron, lovenox, started on levaquin yesterday as well- consider baricitinib if lower susp icion for bacterial pneumonia, can obtain procalcitonin to assessThank you for involving us in the ca re of this patient.Interventions Major-Hypoxemia - evaluation and management, Respiratory failure - e valuation and management
[2021-02-26] MEDS: Albuterol/Ipratropium 3.0-0.5 MG/3 ML Neb Soln NEB PRN ×2 (12:29→20:13)
--- NOTE | 2021-02-26 15:32 | PCM.PN ---
<Cynthia Calvillo - Last Filed: 02/26/21 15:28> - General Info Date of Service: 02/26/21 Admission Dx/Problem (Free Text): Admission Diagnosis/Problem Admission Diagnosis/Problem Respiratory failure with hypoxia Subjective Update: 80-year-old female admitted for COVID currently on Vapotherm, 60 L, FiO2 80. Patient's oxygen requirements have been increasing. Patient continues to state she is doing fine. Patient appears dyspneic. Patient is sitting in recliner and is comfortable. Patient had a bowel movement yesterday. Patient continues to tolerate diet. Patient is currently on levofloxacin. She completed remdesivir therapy. Denies fever, chills, chest pain, cough, headaches, dizziness, loss of consciousness. Patient has a Contreras catheter placed. - Review of Systems General: Denies: Fever, Chills HEENT: Denies: Headaches Pulmonary: Reports: Shortness of Breath. Denies: Pleuritic Chest Pain, Cough Cardiovascular: Reports: Dyspnea on Exertion. Denies: Chest Pain, Palpitations Gastrointestinal: Denies: Abdominal Pain, Constipation, Diarrhea, Nausea, Vomiting Genitourinary: Denies: Dysuria Musculoskeletal: Denies: Leg Pain Skin: Denies: Cyanosis Neurological: Denies: Confusion, Dizziness, Headache, Numbness, Paresthesia - Patient Data Vitals - Most Recent: Last Vital Signs Temp 96.8 F L 02/26/21 12:00 Pulse 103 H 02/24/21 18:00 Resp 23 H 02/26/21 12:00 BP 104/50 L 02/26/21 12:00 Pulse Ox 87 L 02/26/21 12:00 Weight - Most Recent: 64.183 kg I&O - Last 24 Hours: Intake & Output 02/26/21 02/26/21 02/26/21 06:59 14:59 22:59 Intake Total 650 10 Output Total 900 Balance -250 10 Lab Results Last 24 Hours: Laboratory Results - last 24 hr 02/26/21 02/26/21 02/26/21 Range/Units 04:37 04:37 11:55 WBC 13.25 H (4.0-11.0) K/uL RBC 4.28 L (4.30-5.90) M/uL Hgb 13.4 (12.0-16.0) g/dL Hct 38.4 (36.0-46.0) % MCV 89.7 (80.0-98.0) fL MCH 31.3 (27.0-32.0) pg MCHC 34.9 (31.0-37.0) g/dL RDW Std Deviation 46.5 (28.0-62.0) fl RDW Coeff of Lorelei 14 (11.0-15.0) % Plt Count 194 (150-400) K/uL MPV 9.80 (7.40-12.00) fL Add Manual Diff YES Neutrophils % (Manual) 92 H (48.0-80.0) % Band Neutrophils % 2 % Lymphocytes % (Manual) 5 L (16.0-40.0) % Monocytes % (Manual) 1 (0.0-15.0) % Nucleated RBC % 0.0 /100WBC Absolute Seg Neuts 12.2 H (1.4-5.7) Band Neutrophils # 0.3 Lymphocytes # (Manual) 0.7 (0.6-2.4) Monocytes # (Manual) 0.1 (0.0-0.8) Nucleated RBCs # 0 K/uL ABG pH 7.52 H (7.35-7.45) ABG pCO2 26 L (35-45) mmHG ABG pO2 52 L (80-105) mmHG ABG HCO3 21 L (22-26) mEq/L ABG Total CO2 18.5 L (23-27) mmol/L ABG Base Excess -0.4 (-2.0-3.0) Sodium 138 (136-145) mmol/L Potassium 4.0 (3.5-5.1) mmol/L Chloride 103 (98-107) mmol/L Carbon Dioxide 22.1 (21.0-32.0) mmol/L BUN 13 (7.0-18.0) mg/dL Creatinine 0.6 (0.6-1.0) mg/dL Est Cr Clr Drug Dosing 58.16 mL/min Estimated GFR (MDRD) > 60.0 ml/min Glucose 108 H (74-106) mg/dL Calcium 7.3 L (8.5-10.1) mg/dL Phosphorus 3.1 (2.6-4.7) mg/dL Magnesium 2.2 (1.8-2.4) mg/dL Med Orders - Current: Current Medications Acetaminophen (Acetaminophen 325 Mg Tab) 650 mg PO Q4H PRN PRN Reason: Pain/Fever Last Admin: 02/22/21 03:13 Dose: 650 mg Documented by: Albuterol/Ipratropium (Albuterol/Ipratropium 4 Gm Inhalation [place]) 0 gm INH Q4H [facility] Last Admin: 02/26/21 11:55 Dose: 1 puff Documented by: Albuterol/Ipratropium (Albuterol/Ipratropium 3.0-0.5 Mg/3 Ml Neb Soln) 3 ml NEB Q4HRRT PRN PRN Reason: Shortness of Breath Last Admin: 02/26/21 12:29 Dose: 3 ml Documented by: Dexamethasone (Dexamethasone 4 Mg Tab) 6 mg PO DAILY [facility] Last Admin: 02/26/21 08:36 Dose: 6 mg Documented by: Enoxaparin Sodium (Enoxaparin 40 Mg/0.4 Ml Syringe) 40 mg SUBCUT DAILY [facility] Last Admin: 02/26/21 08:38 Dose: 40 mg Documented by: Guaifenesin/Dextromethorphan (Guaifenesin/Dextromethorphan 100-10 Mg/5 Ml Soln 10 Ml Cup) 10 ml PO Q4H PRN PRN Reason: Cough Last Admin: 02/23/21 06:14 Dose: 10 ml Documented by: Pantoprazole Sodium 40 mg/ (Sodium Chloride) 10 mls @ 300 mls/hr IV DAILY [facility] Last Admin: 02/26/21 08:38 Dose: 300 mls/hr Documented by: Levofloxacin (Levofloxacin 750 Mg Tab) 750 mg PO Q24H [facility] Last Admin: 02/26/21 08:36 Dose: 750 mg Documented by: Levothyroxine Sodium (Levothyroxine 75 Mcg Tab) 75 mcg PO ACBREAKFAST [facility] Last Admin: 02/26/21 08:36 Dose: 75 mcg Documented by: Melatonin (Melatonin 3 Mg Tab) 6 mg PO BEDTIME PRN PRN Reason: Insomnia Last Admin: 02/25/21 21:49 Dose: 6 mg Documented by: Ondansetron HCl (Ondansetron 4 Mg/2 Ml Sdv) 4 mg IVPUSH Q4H PRN PRN Reason: Nausea/Vomiting Sodium Chloride (Sodium Chloride 0.9% 10 Ml Syringe) 10 ml FLUSH ASDIRECTED PRN PRN Reason: Keep Vein Open Last Admin: 02/17/21 22:52 Dose: 10 ml Documented by: Sodium Chloride (Sodium Chloride 0.9% 2.5 Ml Syringe) 2.5 ml FLUSH ASDIRECTED PRN PRN Reason: Keep Vein Open Last Admin: 02/17/21 22:53 Dose: 2.5 ml Documented by: Discontinued Medications Acetaminophen (Acetaminophen 325 Mg Tab) 650 mg PO NOW ONE Stop: 02/17/21 22:53 Last Admin: 02/17/21 22:58 Dose: 650 mg Documented by: Dexamethasone (Dexamethasone 10 Mg/Ml Sdv) 10 mg IVPUSH ONETIME ONE Stop: 02/17/21 22:36 Last Admin: 02/17/21 22:57 Dose: 10 mg Documented by: Remdesivir 200 mg/ Sodium (Chloride) 250 mls @ 250 mls/hr IV ONETIME ONE Stop: 02/17/21 22:38 Last Admin: 02/17/21 23:15 Dose: 250 mls/hr Documented by: Lactated Ringer's (Ringers, Lactated) 1,000 mls @ 999 mls/hr IV .BOLUS MONIQUE Last Admin: 02/17/21 22:59 Dose: 999 mls/hr Documented by: Remdesivir 100 mg/ Sodium (Chloride) 100 mls @ 100 mls/hr IV Q24H MONIQUE Stop: 02/21/21 22:59 Last Admin: 02/21/21 21:56 Dose: 100 mls/hr Documented by: Pantoprazole Sodium 40 mg/ (Sodium Chloride) 10 mls @ 300 mls/hr IV DAILY [facility] Ceftriaxone Sodium/Dextrose 1 (gm/ Premix) 50 mls @ 100 mls/hr IV Q24H [facility] Last Admin: 02/22/21 08:48 Dose: 100 mls/hr Documented by: Potassium Chloride 40 meq/ (Sodium Chloride) 520 mls @ 130 mls/hr IV ONETIME ONE Stop: 02/21/21 12:29 Last Admin: 02/21/21 11:22 Dose: 130 mls/hr Documented by: Iopamidol (Iopamidol 755 Mg/Ml 100 Ml Bottle) 100 ml IVPUSH ONETIME ONE Stop: 02/17/21 23:51 Last Admin: 02/18/21 00:44 Dose: 100 ml Documented by: Magnesium Oxide (Magnesium Oxide 400 Mg Tab) 400 mg PO BID MONIQUE Stop: 02/23/21 09:01 Last Admin: 02/23/21 09:14 Dose: 400 mg Documented by: Pantoprazole Sodium (Pantoprazole 40 Mg Vial) Confirm Administered Dose 40 mg .ROUTE .STK-MED ONE Stop: 02/20/21 08:13 Last Admin: 02/20/21 09:14 Dose: Not Given Documented by: Potassium Chloride (Potassium Chloride 20 Meq Tab.Er) 40 meq PO BID MONIQUE Stop: 02/20/21 17:00 Last Admin: 02/20/21 09:14 Dose: Not Given Documented by: Potassium Chloride (Potassium Chloride 20 Meq Tab.Er) 40 meq PO ONETIME ONE Stop: 02/21/21 08:31 Last Admin: 02/21/21 10:07 Dose: 40 meq Documented by: Potassium Chloride (Potassium Chloride 20 Meq Tab.Er) 40 meq PO ONETIME ONE Stop: 02/23/21 08:31 Last Admin: 02/23/21 09:13 Dose: 40 meq Documented by: Sodium Phosphate (Phosphorus #1 250 Mg Tab) 250 mg PO QID MONIQUE Stop: 02/23/21 09:00 Last Admin: 02/23/21 06:14 Dose: 250 mg Documented by: - Exam Quality Assessment: Supplemental Oxygen Urinary Catheter Total Time: 0Days 0Hours General: Alert, Oriented, Cooperative, Mild Distress, Other (Facial flushing.) HEENT: Pupils Equal, Pupils Reactive Neck: Supple, Trachea Midline Lungs: Decreased Breath Sounds, Crackles, Rales Cardiovascular: Regular Rate, Regular Rhythm GI/Abdominal Exam: Normal Bowel Sounds, Soft, Non-Tender Back Exam: Normal Inspection Extremities: Normal Inspection, Normal Range of Motion, Non-Tender, No Pedal Edema. No: Rick's Sign, Leg Pain Peripheral Pulses: 2+: Dorsalis Pedis (L), Dorsalis Pedis (R) Skin: Warm, Dry, Intact Neurological: No New Focal Deficit - Patient Data Lab Results Last 24 hrs: Laboratory Results - last 24 hr 02/26/21 02/26/21 02/26/21 Range/Units 04:37 04:37 11:55 WBC 13.25 H (4.0-11.0) K/uL RBC 4.28 L (4.30-5.90) M/uL Hgb 13.4 (12.0-16.0) g/dL Hct 38.4 (36.0-46.0) % MCV 89.7 (80.0-98.0) fL MCH 31.3 (27.0-32.0) pg MCHC 34.9 (31.0-37.0) g/dL RDW Std Deviation 46.5 (28.0-62.0) fl RDW Coeff of Lorelei 14 (11.0-15.0) % Plt Count 194 (150-400) K/uL MPV 9.80 (7.40-12.00) fL Add Manual Diff YES Neutrophils % (Manual) 92 H (48.0-80.0) % Band Neutrophils % 2 % Lymphocytes % (Manual) 5 L (16.0-40.0) % Monocytes % (Manual) 1 (0.0-15.0) % Nucleated RBC % 0.0 /100WBC Absolute Seg Neuts 12.2 H (1.4-5.7) Band Neutrophils # 0.3 Lymphocytes # (Manual) 0.7 (0.6-2.4) Monocytes # (Manual) 0.1 (0.0-0.8) Nucleated RBCs # 0 K/uL ABG pH 7.52 H (7.35-7.45) ABG pCO2 26 L (35-45) mmHG ABG pO2 52 L (80-105) mmHG ABG HCO3 21 L (22-26) mEq/L ABG Total CO2 18.5 L (23-27) mmol/L ABG Base Excess -0.4 (-2.0-3.0) Sodium 138 (136-145) mmol/L Potassium 4.0 (3.5-5.1) mmol/L Chloride 103 (98-107) mmol/L Carbon Dioxide 22.1 (21.0-32.0) mmol/L BUN 13 (7.0-18.0) mg/dL Creatinine 0.6 (0.6-1.0) mg/dL Est Cr Clr Drug Dosing 58.16 mL/min Estimated GFR (MDRD) > 60.0 ml/min Glucose 108 H (74-106) mg/dL Calcium 7.3 L (8.5-10.1) mg/dL Phosphorus 3.1 (2.6-4.7) mg/dL Magnesium 2.2 (1.8-2.4) mg/dL Result Diagrams: 02/26/21 04:37 02/26/21 04:37 Sepsis Event Note - Evaluation Sepsis Screening Result: Sepsis Risk - Focused Exam Vital Signs: Vital Signs Temp Resp BP Pulse Ox 02/26/21 12:00 96.8 F L 23 H 104/50 L 87 L 02/26/21 11:00 33 H 104/40 L 89 L 02/26/21 10:00 37 H 110/45 L 84 L 02/26/21 09:00 26 H 111/48 L 88 L 02/26/21 08:00 97 F 22 H 97/41 L 89 L 02/26/21 07:00 25 H 105/42 L 89 L 02/26/21 06:00 23 H 111/47 L 92 L 02/26/21 05:00 22 H 110/41 L 92 L 02/26/21 04:00 97.9 F 24 H 120/42 L 90 L - Problem List & Annotations (1) UTI (urinary tract infection) SNOMED Code(s): 95717426 Code(s): N39.0 - URINARY TRACT INFECTION, SITE NOT SPECIFIED Status: Acute (2) Pneumonia due to COVID-19 virus SNOMED Code(s): 107459353923677325 Code(s): U07.1 - COVID-19; J12.82 - PNEUMONIA DUE TO CORONAVIRUS DISEASE 2019 Status: Acute - Problem List Review Problem List Initiated/Reviewed/Updated: Yes - Plan Plan:: 80 yo female admitted with COVID pneumonia with acute hypoxic respiratory failur e Patient is currently on Vapotherm, 60 L, FiO2 80. Patient completed remdesivir. Continue dexamethasone. Continue Levaquin. Continue duo nebs, continue Combivent Continue Lovenox for DVT prophylaxis Continue supportive care Monitor closely. <Joyce Tripp - Last Filed: 03/03/21 13:20> - General Info Admission Dx/Problem (Free Text): I have seen and evaluated the patient and agree with the residents note unless specified in my note - Patient Data Vitals - Most Recent: Last Vital Signs Temp 35.5 C L 03/02/21 16:00 Pulse 103 H 02/24/21 18:00 Resp 14 03/02/21 21:00 BP 30/25 L 03/02/21 21:00 Pulse Ox 50 L 03/02/21 20:00 I&O - Last 24 Hours: Intake & Output 03/02/21 03/03/21 03/03/21 22:59 06:59 14:59 Intake Total 1000 Output Total 850 Balance 150 Med Orders - Current: Current Medications Discontinued Medications Acetaminophen (Acetaminophen 325 Mg Tab) 650 mg PO NOW ONE Stop: 02/17/21 22:53 Last Admin: 02/17/21 22:58 Dose: 650 mg Documented by: Acetaminophen (Acetaminophen 325 Mg Tab) 650 mg PO Q4H PRN PRN Reason: Pain/Fever Last Admin: 03/01/21 20:36 Dose: 650 mg Documented by: Albuterol/Ipratropium (Albuterol/Ipratropium 4 Gm Inhalation [place]) 0 gm INH Q4H [facility] Last Admin: 03/02/21 21:14 Dose: Not Given Documented by: Albuterol/Ipratropium (Albuterol/Ipratropium 3.0-0.5 Mg/3 Ml Neb Soln) 3 ml NEB Q4HRRT PRN PRN Reason: Shortness of Breath Last Admin: 03/02/21 08:08 Dose: 3 ml Documented by: Dexamethasone (Dexamethasone 10 Mg/Ml Sdv) 10 mg IVPUSH ONETIME ONE Stop: 02/17/21 22:36 Last Admin: 02/17/21 22:57 Dose: 10 mg Documented by: Dexamethasone (Dexamethasone 4 Mg Tab) 6 mg PO DAILY [facility] Last Admin: 03/02/21 12:11 Dose: Not Given Documented by: Enoxaparin Sodium (Enoxaparin 40 Mg/0.4 Ml Syringe) 40 mg SUBCUT DAILY [facility] Last Admin: 03/02/21 08:08 Dose: 40 mg Documented by: Furosemide (Furosemide 40 Mg/4 Ml Vial) 40 mg IVPUSH NOW ONE Stop: 03/02/21 09:24 Last Admin: 03/02/21 09:32 Dose: 40 mg Documented by: Guaifenesin/Dextromethorphan (Guaifenesin/Dextromethorphan 100-10 Mg/5 Ml Soln 10 Ml Cup) 10 ml PO Q4H PRN PRN Reason: Cough Last Admin: 02/23/21 06:14 Dose: 10 ml Documented by: Remdesivir 200 mg/ Sodium (Chloride) 250 mls @ 250 mls/hr IV ONETIME ONE Stop: 02/17/21 22:38 Last Admin: 02/17/21 23:15 Dose: 250 mls/hr Documented by: Lactated Ringer's (Ringers, Lactated) 1,000 mls @ 999 mls/hr IV .BOLUS MONIQUE Last Admin: 02/17/21 22:59 Dose: 999 mls/hr Documented by: Remdesivir 100 mg/ Sodium (Chloride) 100 mls @ 100 mls/hr IV Q24H MONIQUE Stop: 02/21/21 22:59 Last Admin: 02/21/21 21:56 Dose: 100 mls/hr Documented by: Pantoprazole Sodium 40 mg/ (Sodium Chloride) 10 mls @ 300 mls/hr IV DAILY MONIQUE Ceftriaxone Sodium/Dextrose 1 (gm/ Premix) 50 mls @ 100 mls/hr IV Q24H MONIQUE Last Admin: 02/22/21 08:48 Dose: 100 mls/hr Documented by: Pantoprazole Sodium 40 mg/ (Sodium Chloride) 10 mls @ 300 mls/hr IV DAILY MONIQUE Last Admin: 02/28/21 07:59 Dose: 300 mls/hr Documented by: Potassium Chloride 40 meq/ (Sodium Chloride) 520 mls @ 130 mls/hr IV ONETIME ONE Stop: 02/21/21 12:29 Last Admin: 02/21/21 11:22 Dose: 130 mls/hr Documented by: Propofol (Diprivan 100 Ml) Confirm Administered Dose 100 mls @ as directed .ROUTE .STK-MED ONE Stop: 03/02/21 10:55 Last Admin: 03/02/21 12:51 Dose: Not Given Documented by: Propofol (Diprivan 100 Ml) 100 mls @ 1.715 mls/hr IV TITRATE MONIQUE; Protocol Last Admin: 03/02/21 17:25 Dose: 65 mcg/kg/min, 22.29 mls/hr Documented by: Norepinephrine Bitartrate (Norepinephr-0.9% Nacl 4 Mg/250) 4 mg in 250 mls @ 7.5 mls/hr IV TITRATE MONIQUE; Protocol Last Admin: 03/02/21 17:29 Dose: 10 mcg/min, 37.5 mls/hr Documented by: Fentanyl Citrate 2,500 mcg/ (Premix) 250 mls @ 2.5 mls/hr IV TITRATE MONIQUE; Protocol Last Titration: 03/02/21 21:25 Dose: 0 mls/hr, 0 mls/hr Documented by: Vasopressin 100 units/ Sodium (Chloride) 100 mls @ 2.4 mls/hr IV TITRATE MONIQUE; Protocol Last Admin: 03/02/21 16:30 Dose: 0.04 units/min, 2.4 mls/hr Documented by: Sodium Chloride (Normal Saline) 1,000 mls @ 999 mls/hr IV STAT STA Stop: 03/02/21 17:29 Last Admin: 03/02/21 16:29 Dose: 999 mls/hr Documented by: Piperacillin Sod/Tazobactam (Sod 3.375 gm/ Sodium Chloride) 50 mls @ 100 mls/hr IV Q6H MONIQUE Vancomycin HCl 1 gm/ Sodium (Chloride) 250 mls @ 167 mls/hr IV Q24H MONIQUE Vancomycin HCl 1.5 gm/ Premix 300 mls @ 200 mls/hr IV ONETIME ONE Stop: 03/02/21 18:44 Iopamidol (Iopamidol 755 Mg/Ml 100 Ml Bottle) 100 ml IVPUSH ONETIME ONE Stop: 02/17/21 23:51 Last Admin: 02/18/21 00:44 Dose: 100 ml Documented by: Levofloxacin (Levofloxacin 750 Mg Tab) 750 mg PO Q24H MONIQUE Last Admin: 03/02/21 12:11 Dose: Not Given Documented by: Levothyroxine Sodium (Levothyroxine 75 Mcg Tab) 75 mcg PO ACBREAKFAST [facility] Last Admin: 03/02/21 12:11 Dose: Not Given Documented by: Lorazepam (Lorazepam 2 Mg/Ml Sdv) 1 mg IVPUSH ONETIME PRN PRN Reason: Anxiety Last Admin: 02/27/21 21:15 Dose: 1 mg Documented by: Lorazepam (Lorazepam 2 Mg/Ml Sdv) 0.5 mg IVPUSH ONETIME STA Stop: 03/02/21 05:16 Last Admin: 03/02/21 05:34 Dose: 0.5 mg Documented by: Lorazepam (Lorazepam 2 Mg/Ml Sdv) Confirm Administered Dose 2 mg .ROUTE .STK-MED ONE Stop: 03/02/21 19:26 Last Admin: 03/02/21 19:37 Dose: 2 mg Documented by: Lorazepam (Lorazepam 2 Mg/Ml Sdv) 2 mg IVPUSH Q2H PRN PRN Reason: Agitation Magnesium Oxide (Magnesium Oxide 400 Mg Tab) 400 mg PO BID [facility] Stop: 02/23/21 09:01 Last Admin: 02/23/21 09:14 Dose: 400 mg Documented by: Melatonin (Melatonin 3 Mg Tab) 6 mg PO BEDTIME PRN PRN Reason: Insomnia Last Admin: 03/01/21 20:02 Dose: 6 mg Documented by: Morphine Sulfate (Morphine 2 Mg/Ml Syringe) 1 mg IVPUSH Q1H PRN PRN Reason: air hunger Nystatin (Nystatin Topical Powder 15 Gm Bottle) 0 gm TOP TID PRN PRN Reason: Other Last Admin: 03/01/21 20:00 Dose: 1 applic Documented by: Ondansetron HCl (Ondansetron 4 Mg/2 Ml Sdv) 4 mg IVPUSH Q4H PRN PRN Reason: Nausea/Vomiting Pantoprazole Sodium (Pantoprazole 40 Mg Vial) Confirm Administered Dose 40 mg .ROUTE .STK-MED ONE Stop: 02/20/21 08:13 Last Admin: 02/20/21 09:14 Dose: Not Given Documented by: Pantoprazole Sodium (Pantoprazole 40 Mg Tab.Cr) 40 mg PO DAILY [facility] Last Admin: 03/02/21 12:12 Dose: Not Given Documented by: Potassium Chloride (Potassium Chloride 20 Meq Tab.Er) 40 meq PO BID [facility] Stop: 02/20/21 17:00 Last Admin: 02/20/21 09:14 Dose: Not Given Documented by: Potassium Chloride (Potassium Chloride 20 Meq Tab.Er) 40 meq PO ONETIME ONE Stop: 02/21/21 08:31 Last Admin: 02/21/21 10:07 Dose: 40 meq Documented by: Potassium Chloride (Potassium Chloride 20 Meq Tab.Er) 40 meq PO ONETIME ONE Stop: 02/23/21 08:31 Last Admin: 02/23/21 09:13 Dose: 40 meq Documented by: Scopolamine (Scopolamine 1.5 Mg Transdermal Patch) 1.5 mg TRDERM Q72H PRN PRN Reason: secretions Last Admin: 03/02/21 18:48 Dose: 1.5 mg Documented by: Sodium Chloride (Sodium Chloride 0.9% 10 Ml Syringe) 10 ml FLUSH ASDIRECTED PRN PRN Reason: Keep Vein Open Last Admin: 02/17/21 22:52 Dose: 10 ml Documented by: Sodium Chloride (Sodium Chloride 0.9% 2.5 Ml Syringe) 2.5 ml FLUSH ASDIRECTED PRN PRN Reason: Keep Vein Open Last Admin: 02/17/21 22:53 Dose: 2.5 ml Documented by: Sodium Phosphate (Phosphorus #1 250 Mg Tab) 250 mg PO QID MONIQUE Stop: 02/23/21 09:00 Last Admin: 02/23/21 06:14 Dose: 250 mg Documented by: Vancomycin HCl (Pharmacy To Dose - Vancomycin) 1 dose .XX ASDIRECTED [facility] - Patient Data Result Diagrams: 03/02/21 10:14 03/02/21 10:50 - Problem List & Annotations (1) Hypothyroidism SNOMED Code(s): 37247699 Code(s): E03.9 - HYPOTHYROIDISM, UNSPECIFIED Status: Acute (2) Pneumonia due to COVID-19 virus SNOMED Code(s): 772844239721017055 Code(s): U07.1 - COVID-19; J12.82 - PNEUMONIA DUE TO CORONAVIRUS DISEASE 2019 Status: Acute (3) Respiratory failure with hypoxia SNOMED Code(s): 63762394989826652 Code(s): J96.91 - RESPIRATORY FAILURE, UNSPECIFIED WITH HYPOXIA Status: Acute
[2021-02-26] MEDS: Melatonin 3 MG Tab PO PRN (20:13)
[2021-02-27] MEDS: Albuterol/Ipratropium 4 GM Inhalation Spray INH SCH ×6 (03:10→23:18)
[2021-02-27] MEDS: Levothyroxine 75 MCG Tab PO SCH (07:59)
[2021-02-27] MEDS: Pantoprazole 40 MG in Sodium Chloride 0.9% 10 ML IV SCH (08:00)
[2021-02-27] MEDS: Dexamethasone 4 MG Tab PO SCH (08:00)
[2021-02-27] MEDS: Enoxaparin 40 MG/0.4 ML Syringe SUBCUT SCH (08:00)
[2021-02-27] MEDS: Levofloxacin 750 MG Tab PO SCH (08:00)
[2021-02-27 10:20] LABS: BLOOD UREA NITROGEN,BUN 13 mg/dL (7.0-18.0); CARBON DIOXIDE,CO2 21.5 mmol/L (21.0-32.0); CHLORIDE,CL 100 mmol/L (98-107); GLUCOSE RANDOM 119 mg/dL (74-106); POTASSIUM,K 4.3 mmol/L (3.5-5.1); SODIUM,NA 135 mmol/L (136-145)
--- NOTE | 2021-02-27 17:35 | PN ---
THC Physician - Brief Progress [id number]/28/2021 17:11[facility] [place] - [facility] - SARAHN TAMANNA MELGAR, COVID+Date of Service 02/27/2021 17:11HPI/ Events of Note 80 yo F with COVID PNA. She has had increasing O2 requirements and is now requiring he ated high flow NC with 60L flow and FiO2 90%. On video exam, pt is tachypneic and has increased work of breathing. SpO2 is 92% on the aforementioned settings. Bedside team has not yet placed pt on BiPAP out of fear that pt may not be able to come off of BiPAP and will require intubation (this is accord ing to bedside RN). However, if she continues to work this hard and requires this much support, she w ill assuredly be intubated soon.Vitals and labs reviewed.On exam, pt is tachypneic and has mildly inc reased work of breathing at rest. She is otherwise lying in bed watching TV. NSR with normal HR on te lemetry monitor. Mild conversational dyspnea.ASSESSMENT:Acute hypoxic respiratory failureMultifocal c ommunity acquired pneumonia d/t [id number]:O2 via heated HFNC. Martínez mmend switching to BiPAP QHS & PRN with IPAP 12, EPAP 7Maintain spo2 >90% and PO2 >60 mmHgDroplet iso lation per protocolDexamethasoneRemdesivir completedDuonebFollow CBCLevothyroxineInterventions Major- Hypoxemia - evaluation and management, Infection - evaluation and management, Respiratory failure - e valuation and management
[2021-02-27] MEDS ORDERED: LORazepam 2 MG/ML SDV IVPUSH PRN (18:54)
--- NOTE | 2021-02-27 19:58 | PCM.PN ---
<Cynthia Calvillo - Last Filed: 02/27/21 19:55> - General Info Date of Service: 02/27/21 Admission Dx/Problem (Free Text): Admission Diagnosis/Problem Admission Diagnosis/Problem Respiratory failure with hypoxia Subjective Update: 80-year-old female admitted for COVID currently on Vapotherm, 60 L, FiO2 90. Patient's oxygen requirements continued to increase. Patient continues to state she is doing fine. Patient appears dyspneic. Patient is sitting in bed. Patient continues to tolerate diet. Patient is currently on levofloxacin. She completed remdesivir therapy. Denies fever, chills, chest pain, cough, headaches, dizziness, loss of consciousness. Patient has a Contreras catheter placed. - Review of Systems General: Denies: Fever, Chills Pulmonary: Reports: Shortness of Breath. Denies: Pleuritic Chest Pain, Cough Cardiovascular: Denies: Chest Pain, Palpitations Gastrointestinal: Denies: Abdominal Pain, Constipation, Nausea, Vomiting Genitourinary: Denies: Dysuria Musculoskeletal: Denies: Leg Pain Skin: Denies: Cyanosis Neurological: Denies: Confusion - Patient Data Vitals - Most Recent: Last Vital Signs Temp 97.2 F 02/27/21 16:00 Pulse 103 H 02/24/21 18:00 Resp 29 H 02/27/21 19:00 BP 115/51 L 02/27/21 19:00 Pulse Ox 95 02/27/21 18:00 Weight - Most Recent: 64.183 kg I&O - Last 24 Hours: Intake & Output 02/27/21 02/27/21 02/27/21 06:59 14:59 22:59 Intake Total 700 600 Output Total 1250 1400 Balance -550 -800 Lab Results Last 24 Hours: Laboratory Results - last 24 hr 02/27/21 02/27/21 Range/Units 09:40 09:40 WBC 16.94 H (4.0-11.0) K/uL RBC 4.66 (4.30-5.90) M/uL Hgb 14.7 (12.0-16.0) g/dL Hct 42.1 (36.0-46.0) % MCV 90.3 (80.0-98.0) fL MCH 31.5 (27.0-32.0) pg MCHC 34.9 (31.0-37.0) g/dL RDW Std Deviation 46.7 (28.0-62.0) fl RDW Coeff of Lorelei 14 (11.0-15.0) % Plt Count 136 L (150-400) K/uL MPV 10.20 (7.40-12.00) fL Add Manual Diff YES Neutrophils % (Manual) 91 H (48.0-80.0) % Band Neutrophils % 2 % Lymphocytes % (Manual) 2 L (16.0-40.0) % Monocytes % (Manual) 3 (0.0-15.0) % Metamyelocytes % 2 % Nucleated RBC % 0.0 /100WBC Absolute Seg Neuts 15.4 H (1.4-5.7) Band Neutrophils # 0.3 Lymphocytes # (Manual) 0.3 L (0.6-2.4) Monocytes # (Manual) 0.5 (0.0-0.8) Absolute Metamyelocyte 0.3 Nucleated RBCs # 0 K/uL Sodium 135 L (136-145) mmol/L Potassium 4.3 (3.5-5.1) mmol/L Chloride 100 (98-107) mmol/L Carbon Dioxide 21.5 (21.0-32.0) mmol/L BUN 13 (7.0-18.0) mg/dL Creatinine 0.5 L (0.6-1.0) mg/dL Est Cr Clr Drug Dosing 69.79 mL/min Estimated GFR (MDRD) > 60.0 ml/min Glucose 119 H (74-106) mg/dL Calcium 8.5 (8.5-10.1) mg/dL Med Orders - Current: Current Medications Acetaminophen (Acetaminophen 325 Mg Tab) 650 mg PO Q4H PRN PRN Reason: Pain/Fever Last Admin: 02/22/21 03:13 Dose: 650 mg Documented by: Albuterol/Ipratropium (Albuterol/Ipratropium 4 Gm Inhalation [place]) 0 gm INH Q4H MONIQUE Last Admin: 02/27/21 19:20 Dose: Not Given Documented by: Albuterol/Ipratropium (Albuterol/Ipratropium 3.0-0.5 Mg/3 Ml Neb Soln) 3 ml NEB Q4HRRT PRN PRN Reason: Shortness of Breath Last Admin: 02/26/21 20:13 Dose: 3 ml Documented by: Dexamethasone (Dexamethasone 4 Mg Tab) 6 mg PO DAILY [facility] [place] Last Admin: 02/27/21 08:00 Dose: 6 mg Documented by: Enoxaparin Sodium (Enoxaparin 40 Mg/0.4 Ml Syringe) 40 mg SUBCUT DAILY [facility] [place] Last Admin: 02/27/21 08:00 Dose: 40 mg Documented by: Guaifenesin/Dextromethorphan (Guaifenesin/Dextromethorphan 100-10 Mg/5 Ml Soln 10 Ml Cup) 10 ml PO Q4H PRN PRN Reason: Cough Last Admin: 02/23/21 06:14 Dose: 10 ml Documented by: Pantoprazole Sodium 40 mg/ (Sodium Chloride) 10 mls @ 300 mls/hr IV DAILY [facility] [place] Last Admin: 02/27/21 08:00 Dose: 300 mls/hr Documented by: Levofloxacin (Levofloxacin 750 Mg Tab) 750 mg PO Q24H [facility] [place] Last Admin: 02/27/21 08:00 Dose: 750 mg Documented by: Levothyroxine Sodium (Levothyroxine 75 Mcg Tab) 75 mcg PO ACBREAKFAST [facility] [place] Last Admin: 02/27/21 07:59 Dose: 75 mcg Documented by: Lorazepam (Lorazepam 2 Mg/Ml Sdv) 1 mg IVPUSH ONETIME PRN PRN Reason: Anxiety Melatonin (Melatonin 3 Mg Tab) 6 mg PO BEDTIME PRN PRN Reason: Insomnia Last Admin: 02/26/21 20:13 Dose: 6 mg Documented by: Ondansetron HCl (Ondansetron 4 Mg/2 Ml Sdv) 4 mg IVPUSH Q4H PRN PRN Reason: Nausea/Vomiting Sodium Chloride (Sodium Chloride 0.9% 10 Ml Syringe) 10 ml FLUSH ASDIRECTED PRN PRN Reason: Keep Vein Open Last Admin: 02/17/21 22:52 Dose: 10 ml Documented by: Sodium Chloride (Sodium Chloride 0.9% 2.5 Ml Syringe) 2.5 ml FLUSH ASDIRECTED PRN PRN Reason: Keep Vein Open Last Admin: 02/17/21 22:53 Dose: 2.5 ml Documented by: Discontinued Medications Acetaminophen (Acetaminophen 325 Mg Tab) 650 mg PO NOW ONE Stop: 02/17/21 22:53 Last Admin: 02/17/21 22:58 Dose: 650 mg Documented by: Dexamethasone (Dexamethasone 10 Mg/Ml Sdv) 10 mg IVPUSH ONETIME ONE Stop: 02/17/21 22:36 Last Admin: 02/17/21 22:57 Dose: 10 mg Documented by: Remdesivir 200 mg/ Sodium (Chloride) 250 mls @ 250 mls/hr IV ONETIME ONE Stop: 02/17/21 22:38 Last Admin: 02/17/21 23:15 Dose: 250 mls/hr Documented by: Lactated Ringer's (Ringers, Lactated) 1,000 mls @ 999 mls/hr IV .BOLUS MONIQUE Last Admin: 02/17/21 22:59 Dose: 999 mls/hr Documented by: Remdesivir 100 mg/ Sodium (Chloride) 100 mls @ 100 mls/hr IV Q24H MONIQUE Stop: 02/21/21 22:59 Last Admin: 02/21/21 21:56 Dose: 100 mls/hr Documented by: Pantoprazole Sodium 40 mg/ (Sodium Chloride) 10 mls @ 300 mls/hr IV DAILY [facility] [place] Ceftriaxone Sodium/Dextrose 1 (gm/ Premix) 50 mls @ 100 mls/hr IV Q24H [facility] [place] Last Admin: 02/22/21 08:48 Dose: 100 mls/hr Documented by: Potassium Chloride 40 meq/ (Sodium Chloride) 520 mls @ 130 mls/hr IV ONETIME ONE Stop: 02/21/21 12:29 Last Admin: 02/21/21 11:22 Dose: 130 mls/hr Documented by: Iopamidol (Iopamidol 755 Mg/Ml 100 Ml Bottle) 100 ml IVPUSH ONETIME ONE Stop: 02/17/21 23:51 Last Admin: 02/18/21 00:44 Dose: 100 ml Documented by: Magnesium Oxide (Magnesium Oxide 400 Mg Tab) 400 mg PO BID MONIQUE Stop: 02/23/21 09:01 Last Admin: 02/23/21 09:14 Dose: 400 mg Documented by: Pantoprazole Sodium (Pantoprazole 40 Mg Vial) Confirm Administered Dose 40 mg .ROUTE .STK-MED ONE Stop: 02/20/21 08:13 Last Admin: 02/20/21 09:14 Dose: Not Given Documented by: Potassium Chloride (Potassium Chloride 20 Meq Tab.Er) 40 meq PO BID MONIQUE Stop: 02/20/21 17:00 Last Admin: 02/20/21 09:14 Dose: Not Given Documented by: Potassium Chloride (Potassium Chloride 20 Meq Tab.Er) 40 meq PO ONETIME ONE Stop: 02/21/21 08:31 Last Admin: 02/21/21 10:07 Dose: 40 meq Documented by: Potassium Chloride (Potassium Chloride 20 Meq Tab.Er) 40 meq PO ONETIME ONE Stop: 02/23/21 08:31 Last Admin: 02/23/21 09:13 Dose: 40 meq Documented by: Sodium Phosphate (Phosphorus #1 250 Mg Tab) 250 mg PO QID MONIQUE Stop: 02/23/21 09:00 Last Admin: 02/23/21 06:14 Dose: 250 mg Documented by: - Exam Urinary Catheter Total Time: 0Days 0Hours General: Alert, Oriented, Cooperative, Mild Distress HEENT: Pupils Equal, Pupils Reactive Neck: Supple, Trachea Midline Lungs: Decreased Breath Sounds, Crackles Cardiovascular: Regular Rate, Regular Rhythm GI/Abdominal Exam: Normal Bowel Sounds, Soft, Non-Tender Back Exam: Normal Inspection Peripheral Pulses: 2+: Dorsalis Pedis (L), Dorsalis Pedis (R) Skin: Warm, Dry, Intact Neurological: No New Focal Deficit - Patient Data Lab Results Last 24 hrs: Laboratory Results - last 24 hr 02/27/21 02/27/21 Range/Units 09:40 09:40 WBC 16.94 H (4.0-11.0) K/uL RBC 4.66 (4.30-5.90) M/uL Hgb 14.7 (12.0-16.0) g/dL Hct 42.1 (36.0-46.0) % MCV 90.3 (80.0-98.0) fL MCH 31.5 (27.0-32.0) pg MCHC 34.9 (31.0-37.0) g/dL RDW Std Deviation 46.7 (28.0-62.0) fl RDW Coeff of Lorelei 14 (11.0-15.0) % Plt Count 136 L (150-400) K/uL MPV 10.20 (7.40-12.00) fL Add Manual Diff YES Neutrophils % (Manual) 91 H (48.0-80.0) % Band Neutrophils % 2 % Lymphocytes % (Manual) 2 L (16.0-40.0) % Monocytes % (Manual) 3 (0.0-15.0) % Metamyelocytes % 2 % Nucleated RBC % 0.0 /100WBC Absolute Seg Neuts 15.4 H (1.4-5.7) Band Neutrophils # 0.3 Lymphocytes # (Manual) 0.3 L (0.6-2.4) Monocytes # (Manual) 0.5 (0.0-0.8) Absolute Metamyelocyte 0.3 Nucleated RBCs # 0 K/uL Sodium 135 L (136-145) mmol/L Potassium 4.3 (3.5-5.1) mmol/L Chloride 100 (98-107) mmol/L Carbon Dioxide 21.5 (21.0-32.0) mmol/L BUN 13 (7.0-18.0) mg/dL Creatinine 0.5 L (0.6-1.0) mg/dL Est Cr Clr Drug Dosing 69.79 mL/min Estimated GFR (MDRD) > 60.0 ml/min Glucose 119 H (74-106) mg/dL Calcium 8.5 (8.5-10.1) mg/dL Result Diagrams: 02/27/21 09:40 02/27/21 09:40 Sepsis Event Note - Evaluation Sepsis Screening Result: No Definite Risk - Focused Exam Vital Signs: Vital Signs Temp Resp BP Pulse Ox 02/27/21 19:00 29 H 115/51 L 02/27/21 18:00 25 H 119/47 L 95 02/27/21 17:00 27 H 128/62 92 L 02/27/21 16:00 97.2 F 25 H 114/66 91 L 02/27/21 15:00 27 H 123/60 89 L 02/27/21 14:00 30 H 123/57 L 88 L 02/27/21 13:00 29 H 125/67 89 L 02/27/21 12:00 32 H 115/57 L 91 L 02/27/21 11:00 32 H 90 L 02/27/21 10:00 35 H 119/51 L 86 L 02/27/21 09:00 26 H 113/51 L 84 L 02/27/21 08:00 96.8 F L 20 90/48 L 89 L - Problem List & Annotations (1) UTI (urinary tract infection) SNOMED Code(s): 47397918 Code(s): N39.0 - URINARY TRACT INFECTION, SITE NOT SPECIFIED Status: Acute (2) Pneumonia due to COVID-19 virus SNOMED Code(s): 517384325589619061 Code(s): U07.1 - COVID-19; J12.82 - PNEUMONIA DUE TO CORONAVIRUS DISEASE 2019 Status: Acute - Problem List Review Problem List Initiated/Reviewed/Updated: Yes - Plan Plan:: 80 yo female admitted with COVID pneumonia with acute hypoxic respiratory failure Patient is currently on Vapotherm, 60 L, FiO2 90. Patient continues to require increased levels of oxygen. Will speak with the eICU for further recommendations. Patient completed remdesivir. Continue dexamethasone. Continue Levaquin. Continue duo nebs, continue Combivent Continue Lovenox for DVT prophylaxis Continue supportive care Monitor closely. <Joyce Tripp - Last Filed: 03/03/21 13:12> - Patient Data Vitals - Most Recent: Last Vital Signs Temp 35.5 C L 03/02/21 16:00 Pulse 103 H 02/24/21 18:00 Resp 14 03/02/21 21:00 BP 30/25 L 03/02/21 21:00 Pulse Ox 50 L 03/02/21 20:00 I&O - Last 24 Hours: Intake & Output 03/02/21 03/03/21 03/03/21 22:59 06:59 14:59 Intake Total 1000 Output Total 850 Balance 150 Med Orders - Current: Current Medications Discontinued Medications Acetaminophen (Acetaminophen 325 Mg Tab) 650 mg PO NOW ONE Stop: 02/17/21 22:53 Last Admin: 02/17/21 22:58 Dose: 650 mg Documented by: Acetaminophen (Acetaminophen 325 Mg Tab) 650 mg PO Q4H PRN PRN Reason: Pain/Fever Last Admin: 03/01/21 20:36 Dose: 650 mg Documented by: Albuterol/Ipratropium (Albuterol/Ipratropium 4 Gm Inhalation [place]) 0 gm INH Q4H MONIQUE Last Admin: 03/02/21 21:14 Dose: Not Given Documented by: Albuterol/Ipratropium (Albuterol/Ipratropium 3.0-0.5 Mg/3 Ml Neb Soln) 3 ml NEB Q4HRRT PRN PRN Reason: Shortness of Breath Last Admin: 03/02/21 08:08 Dose: 3 ml Documented by: Dexamethasone (Dexamethasone 10 Mg/Ml Sdv) 10 mg IVPUSH ONETIME ONE Stop: 02/17/21 22:36 Last Admin: 02/17/21 22:57 Dose: 10 mg Documented by: Dexamethasone (Dexamethasone 4 Mg Tab) 6 mg PO DAILY [facility] [place] Last Admin: 03/02/21 12:11 Dose: Not Given Documented by: Enoxaparin Sodium (Enoxaparin 40 Mg/0.4 Ml Syringe) 40 mg SUBCUT DAILY [facility] [place] Last Admin: 03/02/21 08:08 Dose: 40 mg Documented by: Furosemide (Furosemide 40 Mg/4 Ml Vial) 40 mg IVPUSH NOW ONE Stop: 03/02/21 09:24 Last Admin: 03/02/21 09:32 Dose: 40 mg Documented by: Guaifenesin/Dextromethorphan (Guaifenesin/Dextromethorphan 100-10 Mg/5 Ml Soln 10 Ml Cup) 10 ml PO Q4H PRN PRN Reason: Cough Last Admin: 02/23/21 06:14 Dose: 10 ml Documented by: Remdesivir 200 mg/ Sodium (Chloride) 250 mls @ 250 mls/hr IV ONETIME ONE Stop: 02/17/21 22:38 Last Admin: 02/17/21 23:15 Dose: 250 mls/hr Documented by: Lactated Ringer's (Ringers, Lactated) 1,000 mls @ 999 mls/hr IV .BOLUS [facility] [place] Last Admin: 02/17/21 22:59 Dose: 999 mls/hr Documented by: Remdesivir 100 mg/ Sodium (Chloride) 100 mls @ 100 mls/hr IV Q24H MONIQUE Stop: 02/21/21 22:59 Last Admin: 02/21/21 21:56 Dose: 100 mls/hr Documented by: Pantoprazole Sodium 40 mg/ (Sodium Chloride) 10 mls @ 300 mls/hr IV DAILY [facility] [place] Ceftriaxone Sodium/Dextrose 1 (gm/ Premix) 50 mls @ 100 mls/hr IV Q24H [facility] [place] Last Admin: 02/22/21 08:48 Dose: 100 mls/hr Documented by: Pantoprazole Sodium 40 mg/ (Sodium Chloride) 10 mls @ 300 mls/hr IV DAILY [facility] [place] Last Admin: 02/28/21 07:59 Dose: 300 mls/hr Documented by: Potassium Chloride 40 meq/ (Sodium Chloride) 520 mls @ 130 mls/hr IV ONETIME ONE Stop: 02/21/21 12:29 Last Admin: 02/21/21 11:22 Dose: 130 mls/hr Documented by: Propofol (Diprivan 100 Ml) Confirm Administered Dose 100 mls @ as directed .ROUTE .STK-MED ONE Stop: 03/02/21 10:55 Last Admin: 03/02/21 12:51 Dose: Not Given Documented by: Propofol (Diprivan 100 Ml) 100 mls @ 1.715 mls/hr IV TITRATE MONIQUE; Protocol Last Admin: 03/02/21 17:25 Dose: 65 mcg/kg/min, 22.29 mls/hr Documented by: Norepinephrine Bitartrate (Norepinephr-0.9% Nacl 4 Mg/250) 4 mg in 250 mls @ 7.5 mls/hr IV TITRATE MONIQUE; Protocol Last Admin: 03/02/21 17:29 Dose: 10 mcg/min, 37.5 mls/hr Documented by: Fentanyl Citrate 2,500 mcg/ (Premix) 250 mls @ 2.5 mls/hr IV TITRATE MONIQUE; Protocol Last Titration: 03/02/21 21:25 Dose: 0 mls/hr, 0 mls/hr Documented by: Vasopressin 100 units/ Sodium (Chloride) 100 mls @ 2.4 mls/hr IV TITRATE MONIQUE; Protocol Last Admin: 03/02/21 16:30 Dose: 0.04 units/min, 2.4 mls/hr Documented by: Sodium Chloride (Normal Saline) 1,000 mls @ 999 mls/hr IV STAT STA Stop: 03/02/21 17:29 Last Admin: 03/02/21 16:29 Dose: 999 mls/hr Documented by: Piperacillin Sod/Tazobactam (Sod 3.375 gm/ Sodium Chloride) 50 mls @ 100 mls/hr IV Q6H MONIQUE Vancomycin HCl 1 gm/ Sodium (Chloride) 250 mls @ 167 mls/hr IV Q24H MONIQUE Vancomycin HCl 1.5 gm/ Premix 300 mls @ 200 mls/hr IV ONETIME ONE Stop: 03/02/21 18:44 Iopamidol (Iopamidol 755 Mg/Ml 100 Ml Bottle) 100 ml IVPUSH ONETIME ONE Stop: 02/17/21 23:51 Last Admin: 02/18/21 00:44 Dose: 100 ml Documented by: Levofloxacin (Levofloxacin 750 Mg Tab) 750 mg PO Q24H [facility] [place] Last Admin: 03/02/21 12:11 Dose: Not Given Documented by: Levothyroxine Sodium (Levothyroxine 75 Mcg Tab) 75 mcg PO ACBREAKFAST [facility] [place] Last Admin: 03/02/21 12:11 Dose: Not Given Documented by: Lorazepam (Lorazepam 2 Mg/Ml Sdv) 1 mg IVPUSH ONETIME PRN PRN Reason: Anxiety Last Admin: 02/27/21 21:15 Dose: 1 mg Documented by: Lorazepam (Lorazepam 2 Mg/Ml Sdv) 0.5 mg IVPUSH ONETIME STA Stop: 03/02/21 05:16 Last Admin: 03/02/21 05:34 Dose: 0.5 mg Documented by: Lorazepam (Lorazepam 2 Mg/Ml Sdv) Confirm Administered Dose 2 mg .ROUTE .STK-MED ONE Stop: 03/02/21 19:26 Last Admin: 03/02/21 19:37 Dose: 2 mg Documented by: Lorazepam (Lorazepam 2 Mg/Ml Sdv) 2 mg IVPUSH Q2H PRN PRN Reason: Agitation Magnesium Oxide (Magnesium Oxide 400 Mg Tab) 400 mg PO BID [facility] [place] Stop: 02/23/21 09:01 Last Admin: 02/23/21 09:14 Dose: 400 mg Documented by: Melatonin (Melatonin 3 Mg Tab) 6 mg PO BEDTIME PRN PRN Reason: Insomnia Last Admin: 03/01/21 20:02 Dose: 6 mg Documented by: Morphine Sulfate (Morphine 2 Mg/Ml Syringe) 1 mg IVPUSH Q1H PRN PRN Reason: air hunger Nystatin (Nystatin Topical Powder 15 Gm Bottle) 0 gm TOP TID PRN PRN Reason: Other Last Admin: 03/01/21 20:00 Dose: 1 applic Documented by: Ondansetron HCl (Ondansetron 4 Mg/2 Ml Sdv) 4 mg IVPUSH Q4H PRN PRN Reason: Nausea/Vomiting Pantoprazole Sodium (Pantoprazole 40 Mg Vial) Confirm Administered Dose 40 mg .ROUTE .STK-MED ONE Stop: 02/20/21 08:13 Last Admin: 02/20/21 09:14 Dose: Not Given Documented by: Pantoprazole Sodium (Pantoprazole 40 Mg Tab.Cr) 40 mg PO DAILY [facility] [place] Last Admin: 03/02/21 12:12 Dose: Not Given Documented by: Potassium Chloride (Potassium Chloride 20 Meq Tab.Er) 40 meq PO BID [facility] [place] Stop: 02/20/21 17:00 Last Admin: 02/20/21 09:14 Dose: Not Given Documented by: Potassium Chloride (Potassium Chloride 20 Meq Tab.Er) 40 meq PO ONETIME ONE Stop: 02/21/21 08:31 Last Admin: 02/21/21 10:07 Dose: 40 meq Documented by: Potassium Chloride (Potassium Chloride 20 Meq Tab.Er) 40 meq PO ONETIME ONE Stop: 02/23/21 08:31 Last Admin: 02/23/21 09:13 Dose: 40 meq Documented by: Scopolamine (Scopolamine 1.5 Mg Transdermal Patch) 1.5 mg TRDERM Q72H PRN PRN Reason: secretions Last Admin: 03/02/21 18:48 Dose: 1.5 mg Documented by: Sodium Chloride (Sodium Chloride 0.9% 10 Ml Syringe) 10 ml FLUSH ASDIRECTED PRN PRN Reason: Keep Vein Open Last Admin: 02/17/21 22:52 Dose: 10 ml Documented by: Sodium Chloride (Sodium Chloride 0.9% 2.5 Ml Syringe) 2.5 ml FLUSH ASDIRECTED PRN PRN Reason: Keep Vein Open Last Admin: 02/17/21 22:53 Dose: 2.5 ml Documented by: Sodium Phosphate (Phosphorus #1 250 Mg Tab) 250 mg PO QID [facility] [place] Stop: 02/23/21 09:00 Last Admin: 02/23/21 06:14 Dose: 250 mg Documented by: Vancomycin HCl (Pharmacy To Dose - Vancomycin) 1 dose .XX ASDIRECTED [facility] [place] - Patient Data Result Diagrams: 03/02/21 10:14 03/02/21 10:50 - Problem List & Annotations (1) Hypothyroidism SNOMED Code(s): 66190790 Code(s): E03.9 - HYPOTHYROIDISM, UNSPECIFIED Status: Acute (2) Pneumonia due to COVID-19 virus SNOMED Code(s): 526220472102424750 Code(s): U07.1 - COVID-19; J12.82 - PNEUMONIA DUE TO CORONAVIRUS DISEASE 2019 Status: Acute (3) Respiratory failure with hypoxia SNOMED Code(s): 57364876688434150 Code(s): J96.91 - RESPIRATORY FAILURE, UNSPECIFIED WITH HYPOXIA Status: Acute - Plan Plan:: I have seen and evaluated the patient and agree with the residents note unless specified in my note
[2021-02-27] MEDS: Melatonin 3 MG Tab PO PRN (20:28)
[2021-02-28] MEDS: Albuterol/Ipratropium 4 GM Inhalation Spray INH SCH ×5 (03:37→20:51)
--- NOTE | 2021-02-28 06:57 | PCM.PN ---
- General Info Date of Service: 02/28/21 Admission Dx/Problem (Free Text): Admission Diagnosis/Problem Admission Diagnosis/Problem Respiratory failure with hypoxia Subjective Update: 80-year-old female admitted for COVID now requiring BiPAP, as per eICU recommendations. Patient was saturating >90% overnight on BiPAP.. Patient continues to state she is doing fine. Patient appears dyspneic. Patient is sitting in bed. Patient continues to tolerate diet. Patient is currently on levofloxacin. She completed remdesivir therapy. She spoke to her family on zoom call yesterday and enjoyed that. Denies fever, chills, chest pain, cough, headaches, dizziness, loss of consciousness. Patient has a Contreras catheter placed. - Review of Systems General: Reports: Weakness, Fatigue. Denies: Fever Pulmonary: Reports: Shortness of Breath. Denies: Cough Cardiovascular: Denies: Chest Pain, Palpitations Gastrointestinal: Denies: Abdominal Pain, Constipation, Decreased Appetite, Diarrhea, Nausea, Vomiting Genitourinary: Denies: Dysuria Musculoskeletal: Denies: Leg Pain Skin: Denies: Cyanosis Neurological: Denies: Confusion - Patient Data Vitals - Most Recent: Last Vital Signs Temp 96.4 F L 02/28/21 05:00 Pulse 103 H 02/24/21 18:00 Resp 22 H 02/28/21 06:00 BP 97/53 L 02/28/21 06:00 Pulse Ox 64 L 02/28/21 06:00 Weight - Most Recent: 141 lb 8 oz I&O - Last 24 Hours: Intake & Output 02/27/21 02/27/21 02/28/21 14:59 22:59 06:59 Intake Total 600 450 Output Total 1400 500 Balance -800 -50 Lab Results Last 24 Hours: Laboratory Results - last 24 hr 02/27/21 02/27/21 Range/Units 09:40 09:40 WBC 16.94 H (4.0-11.0) K/uL RBC 4.66 (4.30-5.90) M/uL Hgb 14.7 (12.0-16.0) g/dL Hct 42.1 (36.0-46.0) % MCV 90.3 (80.0-98.0) fL MCH 31.5 (27.0-32.0) pg MCHC 34.9 (31.0-37.0) g/dL RDW Std Deviation 46.7 (28.0-62.0) fl RDW Coeff of Lorelei 14 (11.0-15.0) % Plt Count 136 L (150-400) K/uL MPV 10.20 (7.40-12.00) fL Add Manual Diff YES Neutrophils % (Manual) 91 H (48.0-80.0) % Band Neutrophils % 2 % Lymphocytes % (Manual) 2 L (16.0-40.0) % Monocytes % (Manual) 3 (0.0-15.0) % Metamyelocytes % 2 % Nucleated RBC % 0.0 /100WBC Absolute Seg Neuts 15.4 H (1.4-5.7) Band Neutrophils # 0.3 Lymphocytes # (Manual) 0.3 L (0.6-2.4) Monocytes # (Manual) 0.5 (0.0-0.8) Absolute Metamyelocyte 0.3 Nucleated RBCs # 0 K/uL Sodium 135 L (136-145) mmol/L Potassium 4.3 (3.5-5.1) mmol/L Chloride 100 (98-107) mmol/L Carbon Dioxide 21.5 (21.0-32.0) mmol/L BUN 13 (7.0-18.0) mg/dL Creatinine 0.5 L (0.6-1.0) mg/dL Est Cr Clr Drug Dosing 69.79 mL/min Estimated GFR (MDRD) > 60.0 ml/min Glucose 119 H (74-106) mg/dL Calcium 8.5 (8.5-10.1) mg/dL Med Orders - Current: Current Medications Acetaminophen (Acetaminophen 325 Mg Tab) 650 mg PO Q4H PRN PRN Reason: Pain/Fever Last Admin: 02/22/21 03:13 Dose: 650 mg Documented by: Albuterol/Ipratropium (Albuterol/Ipratropium 4 Gm Inhalation [place]) 0 gm INH Q4H [facility] Last Admin: 02/28/21 03:37 Dose: 1 puff Documented by: Albuterol/Ipratropium (Albuterol/Ipratropium 3.0-0.5 Mg/3 Ml Neb Soln) 3 ml NEB Q4HRRT PRN PRN Reason: Shortness of Breath Last Admin: 02/26/21 20:13 Dose: 3 ml Documented by: Dexamethasone (Dexamethasone 4 Mg Tab) 6 mg PO DAILY [facility] Last Admin: 02/27/21 08:00 Dose: 6 mg Documented by: Enoxaparin Sodium (Enoxaparin 40 Mg/0.4 Ml Syringe) 40 mg SUBCUT DAILY [facility] Last Admin: 02/27/21 08:00 Dose: 40 mg Documented by: Guaifenesin/Dextromethorphan (Guaifenesin/Dextromethorphan 100-10 Mg/5 Ml Soln 10 Ml Cup) 10 ml PO Q4H PRN PRN Reason: Cough Last Admin: 02/23/21 06:14 Dose: 10 ml Documented by: Pantoprazole Sodium 40 mg/ (Sodium Chloride) 10 mls @ 300 mls/hr IV DAILY [facility] Last Admin: 02/27/21 08:00 Dose: 300 mls/hr Documented by: Levofloxacin (Levofloxacin 750 Mg Tab) 750 mg PO Q24H [facility] Last Admin: 02/27/21 08:00 Dose: 750 mg Documented by: Levothyroxine Sodium (Levothyroxine 75 Mcg Tab) 75 mcg PO ACBREAKFAST [facility] Last Admin: 02/27/21 07:59 Dose: 75 mcg Documented by: Lorazepam (Lorazepam 2 Mg/Ml Sdv) 1 mg IVPUSH ONETIME PRN PRN Reason: Anxiety Last Admin: 02/27/21 21:15 Dose: 1 mg Documented by: Melatonin (Melatonin 3 Mg Tab) 6 mg PO BEDTIME PRN PRN Reason: Insomnia Last Admin: 02/27/21 20:28 Dose: 6 mg Documented by: Ondansetron HCl (Ondansetron 4 Mg/2 Ml Sdv) 4 mg IVPUSH Q4H PRN PRN Reason: Nausea/Vomiting Sodium Chloride (Sodium Chloride 0.9% 10 Ml Syringe) 10 ml FLUSH ASDIRECTED PRN PRN Reason: Keep Vein Open Last Admin: 02/17/21 22:52 Dose: 10 ml Documented by: Sodium Chloride (Sodium Chloride 0.9% 2.5 Ml Syringe) 2.5 ml FLUSH ASDIRECTED PRN PRN Reason: Keep Vein Open Last Admin: 02/17/21 22:53 Dose: 2.5 ml Documented by: Discontinued Medications Acetaminophen (Acetaminophen 325 Mg Tab) 650 mg PO NOW ONE Stop: 02/17/21 22:53 Last Admin: 02/17/21 22:58 Dose: 650 mg Documented by: Dexamethasone (Dexamethasone 10 Mg/Ml Sdv) 10 mg IVPUSH ONETIME ONE Stop: 02/17/21 22:36 Last Admin: 02/17/21 22:57 Dose: 10 mg Documented by: Remdesivir 200 mg/ Sodium (Chloride) 250 mls @ 250 mls/hr IV ONETIME ONE Stop: 02/17/21 22:38 Last Admin: 02/17/21 23:15 Dose: 250 mls/hr Documented by: Lactated Ringer's (Ringers, Lactated) 1,000 mls @ 999 mls/hr IV .BOLUS [facility]IQUE Last Admin: 02/17/21 22:59 Dose: 999 mls/hr Documented by: Remdesivir 100 mg/ Sodium (Chloride) 100 mls @ 100 mls/hr IV Q24H [facility] Stop: 02/21/21 22:59 Last Admin: 02/21/21 21:56 Dose: 100 mls/hr Documented by: Pantoprazole Sodium 40 mg/ (Sodium Chloride) 10 mls @ 300 mls/hr IV DAILY [facility] Ceftriaxone Sodium/Dextrose 1 (gm/ Premix) 50 mls @ 100 mls/hr IV Q24H [facility] Last Admin: 02/22/21 08:48 Dose: 100 mls/hr Documented by: Potassium Chloride 40 meq/ (Sodium Chloride) 520 mls @ 130 mls/hr IV ONETIME ONE Stop: 02/21/21 12:29 Last Admin: 02/21/21 11:22 Dose: 130 mls/hr Documented by: Iopamidol (Iopamidol 755 Mg/Ml 100 Ml Bottle) 100 ml IVPUSH ONETIME ONE Stop: 02/17/21 23:51 Last Admin: 02/18/21 00:44 Dose: 100 ml Documented by: Magnesium Oxide (Magnesium Oxide 400 Mg Tab) 400 mg PO BID [facility] Stop: 02/23/21 09:01 Last Admin: 02/23/21 09:14 Dose: 400 mg Documented by: Pantoprazole Sodium (Pantoprazole 40 Mg Vial) Confirm Administered Dose 40 mg .ROUTE .STK-MED ONE Stop: 02/20/21 08:13 Last Admin: 02/20/21 09:14 Dose: Not Given Documented by: Potassium Chloride (Potassium Chloride 20 Meq Tab.Er) 40 meq PO BID [facility] Stop: 02/20/21 17:00 Last Admin: 02/20/21 09:14 Dose: Not Given Documented by: Potassium Chloride (Potassium Chloride 20 Meq Tab.Er) 40 meq PO ONETIME ONE Stop: 02/21/21 08:31 Last Admin: 02/21/21 10:07 Dose: 40 meq Documented by: Potassium Chloride (Potassium Chloride 20 Meq Tab.Er) 40 meq PO ONETIME ONE Stop: 02/23/21 08:31 Last Admin: 02/23/21 09:13 Dose: 40 meq Documented by: Sodium Phosphate (Phosphorus #1 250 Mg Tab) 250 mg PO QID [facility] Stop: 02/23/21 09:00 Last Admin: 02/23/21 06:14 Dose: 250 mg Documented by: - Exam Quality Assessment: Supplemental Oxygen Urinary Catheter Total Time: 0Days 0Hours General: Alert, Oriented, Mild Distress HEENT: Pupils Equal, Pupils Reactive Neck: Supple, Trachea Midline Lungs: Decreased Breath Sounds, Rales Cardiovascular: Regular Rate, Regular Rhythm Back Exam: No: CVA Tenderness (L), CVA Tenderness (R) Extremities: No Pedal Edema Peripheral Pulses: 2+: Dorsalis Pedis (L), Dorsalis Pedis (R) Skin: Warm, Dry, Intact Neurological: No New Focal Deficit - Patient Data Lab Results Last 24 hrs: Laboratory Results - last 24 hr 02/27/21 02/27/21 Range/Units 09:40 09:40 WBC 16.94 H (4.0-11.0) K/uL RBC 4.66 (4.30-5.90) M/uL Hgb 14.7 (12.0-16.0) g/dL Hct 42.1 (36.0-46.0) % MCV 90.3 (80.0-98.0) fL MCH 31.5 (27.0-32.0) pg MCHC 34.9 (31.0-37.0) g/dL RDW Std Deviation 46.7 (28.0-62.0) fl RDW Coeff of Lorelei 14 (11.0-15.0) % Plt Count 136 L (150-400) K/uL MPV 10.20 (7.40-12.00) fL Add Manual Diff YES Neutrophils % (Manual) 91 H (48.0-80.0) % Band Neutrophils % 2 % Lymphocytes % (Manual) 2 L (16.0-40.0) % Monocytes % (Manual) 3 (0.0-15.0) % Metamyelocytes % 2 % Nucleated RBC % 0.0 /100WBC Absolute Seg Neuts 15.4 H (1.4-5.7) Band Neutrophils # 0.3 Lymphocytes # (Manual) 0.3 L (0.6-2.4) Monocytes # (Manual) 0.5 (0.0-0.8) Absolute Metamyelocyte 0.3 Nucleated RBCs # 0 K/uL Sodium 135 L (136-145) mmol/L Potassium 4.3 (3.5-5.1) mmol/L Chloride 100 (98-107) mmol/L Carbon Dioxide 21.5 (21.0-32.0) mmol/L BUN 13 (7.0-18.0) mg/dL Creatinine 0.5 L (0.6-1.0) mg/dL Est Cr Clr Drug Dosing 69.79 mL/min Estimated GFR (MDRD) > 60.0 ml/min Glucose 119 H (74-106) mg/dL Calcium 8.5 (8.5-10.1) mg/dL Result Diagrams: 02/28/21 04:37 02/28/21 04:37 Sepsis Event Note - Evaluation Sepsis Screening Result: No Definite Risk - Focused Exam Vital Signs: Vital Signs Temp Resp BP Pulse Ox 02/28/21 06:00 22 H 97/53 L 64 L 02/28/21 05:00 96.4 F L 23 H 98/57 L 93 L 02/28/21 04:00 96.4 F L 36 H 117/61 91 L 02/28/21 03:00 22 H 116/52 L 92 L 02/28/21 02:00 26 H 119/59 L 93 L 02/28/21 01:00 27 H 105/60 93 L 02/28/21 00:00 96.1 F L 24 H 111/53 L 93 L 02/27/21 23:00 28 H 116/62 94 L 02/27/21 22:00 23 H 109/44 L 96 02/27/21 21:00 27 H 108/52 L 93 L 02/27/21 20:20 91 L 02/27/21 20:00 96.1 F L 28 H 122/65 94 L 02/27/21 19:00 29 H 115/51 L 95 - Problem List & Annotations (1) UTI (urinary tract infection) SNOMED Code(s): 27993789 Code(s): N39.0 - URINARY TRACT INFECTION, SITE NOT SPECIFIED Status: Acute Current Visit: Yes (2) Pneumonia due to COVID-19 virus SNOMED Code(s): 559551892596007430 Code(s): U07.1 - COVID-19; J12.82 - PNEUMONIA DUE TO CORONAVIRUS DISEASE 2019 Status: Acute Current Visit: Yes - Problem List Review Problem List Initiated/Reviewed/Updated: Yes - My Orders Last 24 Hours: My Active Orders 02/28/21 04:37 CBC WITH AUTO DIFF [HEME] AM CMP [COMPREHENSIVE METABOLIC PN,CMP] [CHEM] AM - Plan Plan:: 80 yo female admitted with COVID pneumonia with acute hypoxic respiratory failure Patient is currently on BiPAP, tolerating well. Patient continues to require increased levels of oxygen. Will follow up with eICU for further recommendations. Patient completed remdesivir. Continue dexamethasone. Continue Levaquin. Continue duo nebs, continue Combivent Continue Lovenox for DVT prophylaxis Continue supportive care Monitor closely.
[2021-02-28 07:05] LABS: BLOOD UREA NITROGEN,BUN 16 mg/dL (7.0-18.0); CARBON DIOXIDE,CO2 23.9 mmol/L (21.0-32.0); CHLORIDE,CL 99 mmol/L (98-107); GLUCOSE RANDOM 88 mg/dL (74-106); POTASSIUM,K 3.9 mmol/L (3.5-5.1); SODIUM,NA 135 mmol/L (136-145)
[2021-02-28] MEDS: Enoxaparin 40 MG/0.4 ML Syringe SUBCUT SCH (07:59)
[2021-02-28] MEDS: Dexamethasone 4 MG Tab PO SCH (07:59)
[2021-02-28] MEDS: Pantoprazole 40 MG in Sodium Chloride 0.9% 10 ML IV SCH (07:59)
[2021-02-28] MEDS: Levothyroxine 75 MCG Tab PO SCH (07:59)
[2021-02-28] MEDS: Levofloxacin 750 MG Tab PO SCH (07:59)
[2021-03-01] MEDS: Albuterol/Ipratropium 4 GM Inhalation Spray INH SCH ×6 (00:54→20:00)
--- NOTE | 2021-03-01 07:41 | PCM.PN ---
- General Info Date of Service: 03/01/21 - Review of Systems Systems Review Comment:: reports feeling better, still very short of breath - Patient Data Vitals - Most Recent: Last Vital Signs Temp 36.2 C 03/01/21 04:00 Pulse 103 H 02/24/21 18:00 Resp 80 H 03/01/21 07:00 BP 110/42 L 03/01/21 06:00 Pulse Ox 93 L 03/01/21 07:00 Weight - Most Recent: 58.513 kg I&O - Last 24 Hours: Intake & Output 02/28/21 03/01/21 03/01/21 22:59 06:59 14:59 Intake Total 300 Output Total 450 400 Balance -450 -100 Lab Results Last 24 Hours: Laboratory Results - last 24 hr 02/28/21 Range/Units 04:37 WBC 17.57 H (4.0-11.0) K/uL RBC 4.44 (4.30-5.90) M/uL Hgb 13.8 (12.0-16.0) g/dL Hct 40.0 (36.0-46.0) % MCV 90.1 (80.0-98.0) fL MCH 31.1 (27.0-32.0) pg MCHC 34.5 (31.0-37.0) g/dL RDW Std Deviation 46.8 (28.0-62.0) fl RDW Coeff of Lorelei 14 (11.0-15.0) % Plt Count 139 L (150-400) K/uL MPV 10.60 (7.40-12.00) fL Add Manual Diff YES Neutrophils % (Manual) 88 H (48.0-80.0) % Band Neutrophils % 2 % Lymphocytes % (Manual) 3 L (16.0-40.0) % Monocytes % (Manual) 4 (0.0-15.0) % Metamyelocytes % 1 % Myelocytes % 2 % Nucleated RBC % 0.0 /100WBC Absolute Seg Neuts 15.5 H (1.4-5.7) Band Neutrophils # 0.4 Lymphocytes # (Manual) 0.5 L (0.6-2.4) Monocytes # (Manual) 0.7 (0.0-0.8) Absolute Metamyelocyte 0.2 Absolute Myelocytes 0.4 Nucleated RBCs # 0 K/uL Med Orders - Current: Current Medications Acetaminophen (Acetaminophen 325 Mg Tab) 650 mg PO Q4H PRN PRN Reason: Pain/Fever Last Admin: 02/22/21 03:13 Dose: 650 mg Documented by: Albuterol/Ipratropium (Albuterol/Ipratropium 4 Gm Inhalation [place]) 0 gm INH Q4H [facility] Last Admin: 03/01/21 03:54 Dose: 1 puff Documented by: Albuterol/Ipratropium (Albuterol/Ipratropium 3.0-0.5 Mg/3 Ml Neb Soln) 3 ml NEB Q4HRRT PRN PRN Reason: Shortness of Breath Last Admin: 02/26/21 20:13 Dose: 3 ml Documented by: Dexamethasone (Dexamethasone 4 Mg Tab) 6 mg PO DAILY [facility] Last Admin: 02/28/21 07:59 Dose: 6 mg Documented by: Enoxaparin Sodium (Enoxaparin 40 Mg/0.4 Ml Syringe) 40 mg SUBCUT DAILY [facility] Last Admin: 02/28/21 07:59 Dose: 40 mg Documented by: Guaifenesin/Dextromethorphan (Guaifenesin/Dextromethorphan 100-10 Mg/5 Ml Soln 10 Ml Cup) 10 ml PO Q4H PRN PRN Reason: Cough Last Admin: 02/23/21 06:14 Dose: 10 ml Documented by: Levofloxacin (Levofloxacin 750 Mg Tab) 750 mg PO Q24H [facility] Last Admin: 02/28/21 07:59 Dose: 750 mg Documented by: Levothyroxine Sodium (Levothyroxine 75 Mcg Tab) 75 mcg PO ACBREAKFAST [facility] Last Admin: 02/28/21 07:59 Dose: 75 mcg Documented by: Lorazepam (Lorazepam 2 Mg/Ml Sdv) 1 mg IVPUSH ONETIME PRN PRN Reason: Anxiety Last Admin: 02/27/21 21:15 Dose: 1 mg Documented by: Melatonin (Melatonin 3 Mg Tab) 6 mg PO BEDTIME PRN PRN Reason: Insomnia Last Admin: 02/27/21 20:28 Dose: 6 mg Documented by: Ondansetron HCl (Ondansetron 4 Mg/2 Ml Sdv) 4 mg IVPUSH Q4H PRN PRN Reason: Nausea/Vomiting Pantoprazole Sodium (Pantoprazole 40 Mg Tab.Cr) 40 mg PO DAILY [facility] Sodium Chloride (Sodium Chloride 0.9% 10 Ml Syringe) 10 ml FLUSH ASDIRECTED PRN PRN Reason: Keep Vein Open Last Admin: 02/17/21 22:52 Dose: 10 ml Documented by: Sodium Chloride (Sodium Chloride 0.9% 2.5 Ml Syringe) 2.5 ml FLUSH ASDIRECTED PRN PRN Reason: Keep Vein Open Last Admin: 02/17/21 22:53 Dose: 2.5 ml Documented by: Discontinued Medications Acetaminophen (Acetaminophen 325 Mg Tab) 650 mg PO NOW ONE Stop: 02/17/21 22:53 Last Admin: 02/17/21 22:58 Dose: 650 mg Documented by: Dexamethasone (Dexamethasone 10 Mg/Ml Sdv) 10 mg IVPUSH ONETIME ONE Stop: 02/17/21 22:36 Last Admin: 02/17/21 22:57 Dose: 10 mg Documented by: Remdesivir 200 mg/ Sodium (Chloride) 250 mls @ 250 mls/hr IV ONETIME ONE Stop: 02/17/21 22:38 Last Admin: 02/17/21 23:15 Dose: 250 mls/hr Documented by: Lactated Ringer's (Ringers, Lactated) 1,000 mls @ 999 mls/hr IV .BOLUS [facility]IQUE Last Admin: 02/17/21 22:59 Dose: 999 mls/hr Documented by: Remdesivir 100 mg/ Sodium (Chloride) 100 mls @ 100 mls/hr IV Q24H [facility] Stop: 02/21/21 22:59 Last Admin: 02/21/21 21:56 Dose: 100 mls/hr Documented by: Pantoprazole Sodium 40 mg/ (Sodium Chloride) 10 mls @ 300 mls/hr IV DAILY [facility] Ceftriaxone Sodium/Dextrose 1 (gm/ Premix) 50 mls @ 100 mls/hr IV Q24H [facility] Last Admin: 02/22/21 08:48 Dose: 100 mls/hr Documented by: Pantoprazole Sodium 40 mg/ (Sodium Chloride) 10 mls @ 300 mls/hr IV DAILY [facility] Last Admin: 02/28/21 07:59 Dose: 300 mls/hr Documented by: Potassium Chloride 40 meq/ (Sodium Chloride) 520 mls @ 130 mls/hr IV ONETIME ONE Stop: 02/21/21 12:29 Last Admin: 02/21/21 11:22 Dose: 130 mls/hr Documented by: Iopamidol (Iopamidol 755 Mg/Ml 100 Ml Bottle) 100 ml IVPUSH ONETIME ONE Stop: 02/17/21 23:51 Last Admin: 02/18/21 00:44 Dose: 100 ml Documented by: Magnesium Oxide (Magnesium Oxide 400 Mg Tab) 400 mg PO BID [facility] Stop: 02/23/21 09:01 Last Admin: 02/23/21 09:14 Dose: 400 mg Documented by: Pantoprazole Sodium (Pantoprazole 40 Mg Vial) Confirm Administered Dose 40 mg .ROUTE .STK-MED ONE Stop: 02/20/21 08:13 Last Admin: 02/20/21 09:14 Dose: Not Given Documented by: Potassium Chloride (Potassium Chloride 20 Meq Tab.Er) 40 meq PO BID [facility] Stop: 02/20/21 17:00 Last Admin: 02/20/21 09:14 Dose: Not Given Documented by: Potassium Chloride (Potassium Chloride 20 Meq Tab.Er) 40 meq PO ONETIME ONE Stop: 02/21/21 08:31 Last Admin: 02/21/21 10:07 Dose: 40 meq Documented by: Potassium Chloride (Potassium Chloride 20 Meq Tab.Er) 40 meq PO ONETIME ONE Stop: 02/23/21 08:31 Last Admin: 02/23/21 09:13 Dose: 40 meq Documented by: Sodium Phosphate (Phosphorus #1 250 Mg Tab) 250 mg PO QID [facility] Stop: 02/23/21 09:00 Last Admin: 02/23/21 06:14 Dose: 250 mg Documented by: - Exam Urinary Catheter Total Time: 4Days 12Hours General: Alert, Oriented Neck: Supple Lungs: Normal Respiratory Effort, Rhonchi Cardiovascular: Regular Rate, Regular Rhythm GI/Abdominal Exam: Soft, Non-Tender, No Distention Extremities: Non-Tender, No Pedal Edema Skin: Warm, Dry, Intact Neurological: No New Focal Deficit - Patient Data Lab Results Last 24 hrs: Laboratory Results - last 24 hr 02/28/21 Range/Units 04:37 WBC 17.57 H (4.0-11.0) K/uL RBC 4.44 (4.30-5.90) M/uL Hgb 13.8 (12.0-16.0) g/dL Hct 40.0 (36.0-46.0) % MCV 90.1 (80.0-98.0) fL MCH 31.1 (27.0-32.0) pg MCHC 34.5 (31.0-37.0) g/dL RDW Std Deviation 46.8 (28.0-62.0) fl RDW Coeff of Lorelei 14 (11.0-15.0) % Plt Count 139 L (150-400) K/uL MPV 10.60 (7.40-12.00) fL Add Manual Diff YES Neutrophils % (Manual) 88 H (48.0-80.0) % Band Neutrophils % 2 % Lymphocytes % (Manual) 3 L (16.0-40.0) % Monocytes % (Manual) 4 (0.0-15.0) % Metamyelocytes % 1 % Myelocytes % 2 % Nucleated RBC % 0.0 /100WBC Absolute Seg Neuts 15.5 H (1.4-5.7) Band Neutrophils # 0.4 Lymphocytes # (Manual) 0.5 L (0.6-2.4) Monocytes # (Manual) 0.7 (0.0-0.8) Absolute Metamyelocyte 0.2 Absolute Myelocytes 0.4 Nucleated RBCs # 0 K/uL Result Diagrams: 02/28/21 04:37 02/28/21 04:37 Sepsis Event Note - Evaluation Sepsis Screening Result: No Definite Risk - Focused Exam Vital Signs: Vital Signs Temp Resp BP Pulse Ox 03/01/21 07:00 80 H 93 L 03/01/21 06:00 17 110/42 L 92 L 03/01/21 05:00 18 110/57 L 92 L 03/01/21 04:00 36.2 C 24 H 89 L 03/01/21 03:00 19 103/50 L 91 L 03/01/21 02:00 19 117/53 L 95 03/01/21 01:00 18 107/55 L 93 L 03/01/21 00:00 36.3 C 19 112/52 L 92 L 02/28/21 23:00 18 118/61 91 L 02/28/21 22:00 24 H 127/66 91 L 02/28/21 21:00 24 H 116/59 L 88 L 02/28/21 20:00 36.3 C 17 105/56 L 90 L - Problem List & Annotations (1) Pneumonia due to COVID-19 virus SNOMED Code(s): 167225770481633126 Code(s): U07.1 - COVID-19; J12.82 - PNEUMONIA DUE TO CORONAVIRUS DISEASE 2019 Status: Acute Current Visit: Yes (2) Respiratory failure with hypoxia SNOMED Code(s): 69885210310411194 Code(s): J96.91 - RESPIRATORY FAILURE, UNSPECIFIED WITH HYPOXIA Status: Ac shira Current Visit: Yes (3) UTI (urinary tract infection) SNOMED Code(s): 00795433 Code(s): N39.0 - URINARY TRACT INFECTION, SITE NOT SPECIFIED Status: Acute Current Visit: Yes - Problem List Review Problem List Initiated/Reviewed/Updated: Yes - My Orders Last 24 Hours: My Active Orders 03/01/21 07:34 CXR [Chest 1V Frontal] [CR] Routine 03/01/21 09:00 Pantoprazole [ProTONIX] 40 mg PO DAILY - Plan Plan:: 80 yo female admitted with COVID pneumonia with acute hypoxic respiratory failure hypoxic respiratory failure: on heated high flow 60 L at 85% FIO2 COVID: Patient completed remdesivir. Continue dexamethasone. Continue Levaquin for UTI and possible pneumonia Continue duo nebs, continue Combivent Continue Lovenox for DVT prophylaxis Continue supportive care
[2021-03-01 08:01] LABS: BLOOD UREA NITROGEN,BUN 18 mg/dL (7.0-18.0); CARBON DIOXIDE,CO2 23.6 mmol/L (21.0-32.0); CHLORIDE,CL 100 mmol/L (98-107); GLUCOSE RANDOM 87 mg/dL (74-106); POTASSIUM,K 4.1 mmol/L (3.5-5.1); SODIUM,NA 135 mmol/L (136-145)
[2021-03-01] MEDS: Levothyroxine 75 MCG Tab PO SCH (08:48)
[2021-03-01] MEDS: Levofloxacin 750 MG Tab PO SCH (08:52)
[2021-03-01] MEDS: Dexamethasone 4 MG Tab PO SCH (08:52)
[2021-03-01] MEDS: Enoxaparin 40 MG/0.4 ML Syringe SUBCUT SCH (08:52)
[2021-03-01] MEDS: Pantoprazole 40 MG Tab.CR PO SCH (08:52)
--- NOTE | 2021-03-01 08:56 | CR ---
INDICATION: Follow-up pneumonia. COMPARISON: 23 February 2021. TECHNIQUE: One view. IMPRESSION: Worsening of hazy and patchy airspace opacities in both lungs with peripheral collection consistent with worsening nonspecific pneumonia. Pulmonary vascularity is obscured. Lung volumes are diminished from comparison. No pneumothorax or effusion. Dictated by Mateo Birch MD @ 03/01/2021 8:55:51 AM (Electronically Signed)
[2021-03-01] MEDS ORDERED: Nystatin Topical Powder 15 GM Bottle TOP PRN (18:30)
[2021-03-01] MEDS: Albuterol/Ipratropium 3.0-0.5 MG/3 ML Neb Soln NEB PRN (20:00)
[2021-03-01] MEDS: Melatonin 3 MG Tab PO PRN (20:02)
[2021-03-01] MEDS: Acetaminophen 325 MG Tab PO PRN (20:36)
[2021-03-02] MEDS: Albuterol/Ipratropium 3.0-0.5 MG/3 ML Neb Soln NEB PRN ×2 (00:11→08:08)
[2021-03-02] MEDS: Albuterol/Ipratropium 4 GM Inhalation Spray INH SCH ×5 (00:14→21:14)
[2021-03-02] MEDS ORDERED: LORazepam 2 MG/ML SDV IVPUSH STA (05:15)
--- NOTE | 2021-03-02 05:16 | PN ---
[facility] Physician - Brief Progress [id number]/31/2021 05:12[facility] Renteria Scot nathan, LISA - YVONNE (ERNESTINE) - TAMANNA GENTILE COVID+Date of Service 03/02/2021 05:12HPI/ Events of Note Pt seen on video and case discussed with RN. Pt has just awakened is anxious and now with increased WOB.Plan: trial of ativan anxiolysis.Interventions Minor-[facility] and/or family
[2021-03-02] MEDS: Enoxaparin 40 MG/0.4 ML Syringe SUBCUT SCH (08:08)
[2021-03-02] MEDS ORDERED: Furosemide 40 MG/4 ML VIAL IVPUSH ONE (09:23)
[2021-03-02] MEDS ORDERED: propofoL 100 ML ONE (10:54)
[2021-03-02] MEDS: propofoL 100 ML IV SCH ×2 (11:00→17:25)
[2021-03-02] MEDS ORDERED: fentaNYL/Normal Saline 2,500 MCG in Premix Bag 1 BAG IV SCH (11:15)
--- NOTE | 2021-03-02 11:35 | PCM.PR.CLI ---
Central Line Insertion - Central Line Insertion Site: internal jugular (R) Prep: CDC/MBT Guidelines, Sterile Drapes, Chlorhexidine Lumen: triple Gauge: 7Fr Ultrasound guided: No Micropuncture kit used: No CL Complications: No Secured with suture: Yes Post placement confirmation: all ports aspirated, all ports flushed Dressing applied: by provider (RIJ line easily placed in sterile fashion.)
--- NOTE | 2021-03-02 11:36 | PCM.PR.ALI ---
Arterial Line Insertion - Arterial Line Insertion Arterial Line Indication: hemodynamic monitoring Site: radial (L) Allens test: negative Prep: CDC/MBT Guidelines, Sterile Drapes, Chlorhexidine Gauge: 20g Local Anesthesia - Lidocaine (Xylocaine): lidocaine 1 % Local Anesthetic Volume: 1cc Ultrasound guided: No Secured with suture: No Dressing applied: by provider Complications: No
--- NOTE | 2021-03-02 11:42 | PCM.PR.ETI ---
Endotracheal Intubation - Endotracheal Intubation Time of Intubation: 10:55 ET Intubation Indication: Respiratory Failure Preparation: Suction, Balloon Tested Pre-Oxygenation: Assisted with BVM, 100% FiO2 Anesthesia Meds: Etomidate, Succinylcholine Placement: Orotracheal Cords Visualized: Yes, Grade 1 ETT Size In mm: 6.0 (Attempted with 7.0 and unable to pass through cords) Number of Attempts: 2 Confirmed By: CO2 Indicator, Bilateral Breath Sounds, Chest Xray Tube Secured By: By RT Endotracheal Intubation Comment: Glidescope 3, grade 1 view. First attempt with 7.0 ett, unable to pass through cords, bag mask between attempts, second attempt with 6.0 ett able to pass through cords. atraumatic intubation.
[2021-03-02 11:43] LABS: BLOOD UREA NITROGEN,BUN 23 mg/dL (7.0-18.0); CARBON DIOXIDE,CO2 17.7 mmol/L (21.0-32.0); CHLORIDE,CL 99 mmol/L (98-107); GLUCOSE RANDOM 117 mg/dL (74-106); SODIUM,NA 136 mmol/L (136-145)
[2021-03-02] MEDS: Dexamethasone 4 MG Tab PO SCH (12:11)
[2021-03-02] MEDS: Levofloxacin 750 MG Tab PO SCH (12:11)
[2021-03-02] MEDS: Levothyroxine 75 MCG Tab PO SCH (12:11)
[2021-03-02] MEDS: Pantoprazole 40 MG Tab.CR PO SCH (12:12)
--- NOTE | 2021-03-02 12:40 | CR ---
Indication: Intubation Technique: Portable chest Comparison: X-ray 03/01/2021 Findings: Right IJ line at the level of the cavoatrial junction. The patient is oblique. Endotracheal to 5 cm above the glenn. Diffuse interstitial airspace opacities. There is a probable small pneumothorax on the right. There is no large effusion. Impression : Oblique film with probable small right pneumothorax recommend repeat imaging . Diffuse interstitial airspace opacities without significant change. Dictated by Diana Lemons MD @ 03/02/2021 12:38:35 PM (Electronically Signed)
--- NOTE | 2021-03-02 15:03 | PCM.PN ---
- General Info Date of Service: 03/02/21 - Review of Systems Systems Review Comment:: reports worsening shortness of breath this morning, no pain, no fevers, - Patient Data Vitals - Most Recent: Last Vital Signs Temp 36.1 C 03/02/21 12:00 Pulse 103 H 02/24/21 18:00 Resp 33 H 03/02/21 12:00 BP 71/51 L 03/02/21 12:00 Pulse Ox 94 L 03/02/21 12:00 Weight - Most Recent: 57.153 kg I&O - Last 24 Hours: Intake & Output 03/02/21 03/02/21 03/02/21 06:59 14:59 22:59 Intake Total 300 Output Total 375 Balance -75 Lab Results Last 24 Hours: Laboratory Results - last 24 hr 03/02/21 03/02/21 03/02/21 Range/Units 10:14 10:15 10:50 WBC 29.19 H (4.0-11.0) K/uL RBC 5.36 (4.30-5.90) M/uL Hgb 17.0 H (12.0-16.0) g/dL Hct 48.4 H (36.0-46.0) % MCV 90.3 (80.0-98.0) fL MCH 31.7 (27.0-32.0) pg MCHC 35.1 (31.0-37.0) g/dL RDW Std Deviation 46.9 (28.0-62.0) fl RDW Coeff of Lorelei 14 (11.0-15.0) % Plt Count 136 L (150-400) K/uL MPV 11.00 (7.40-12.00) fL Add Manual Diff YES Neutrophils % (Manual) 90 H (48.0-80.0) % Band Neutrophils % 2 % Lymphocytes % (Manual) 7 L (16.0-40.0) % Eosinophils % (Manual) 1 (0.0-7.0) % Nucleated RBC % 0.0 /100WBC Absolute Seg Neuts 26.3 H (1.4-5.7) Band Neutrophils # 0.6 Lymphocytes # (Manual) 2.0 (0.6-2.4) Eosinophils # (Manual) 0.3 (0.0-0.7) Nucleated RBCs # 0 K/uL ABG pH 7.46 H (7.35-7.45) ABG pCO2 28 L (35-45) mmHG ABG pO2 50 L (80-105) mmHG ABG HCO3 20 L (22-26) mEq/L ABG Total CO2 16.8 L (23-27) mmol/L ABG Base Excess -2.5 L (-2.0-3.0) Sodium 136 (136-145) mmol/L Potassium 4.0 (3.5-5.1) mmol/L Chloride 99 (98-107) mmol/L Carbon Dioxide 17.7 L (21.0-32.0) mmol/L BUN 23 H (7.0-18.0) mg/dL Creatinine 0.7 (0.6-1.0) mg/dL Est Cr Clr Drug Dosing 49.85 mL/min Estimated GFR (MDRD) > 60.0 ml/min Glucose 117 H (74-106) mg/dL Calcium 8.7 (8.5-10.1) mg/dL Total Bilirubin 0.9 (0.2-1.0) mg/dL AST 131 H (15-37) IU/L ALT 285 H (14-63) IU/L Alkaline Phosphatase 76 (46-116) U/L Total Protein 7.3 (6.4-8.2) g/dL Albumin 2.0 L (3.4-5.0) g/dL Globulin 5.3 H (2.6-4.0) g/dL Albumin/Globulin Ratio 0.4 L (0.9-1.6) Med Orders - Current: Current Medications Acetaminophen (Acetaminophen 325 Mg Tab) 650 mg PO Q4H PRN PRN Reason: Pain/Fever Last Admin: 03/01/21 20:36 Dose: 650 mg Documented by: Albuterol/Ipratropium (Albuterol/Ipratropium 4 Gm Inhalation Hall) 0 gm INH Q4H MONIQUE Last Admin: 03/02/21 12:12 Dose: Not Given Documented by: Albuterol/Ipratropium (Albuterol/Ipratropium 3.0-0.5 Mg/3 Ml Neb Soln) 3 ml NEB Q4HRRT PRN PRN Reason: Shortness of Breath Last Admin: 03/02/21 08:08 Dose: 3 ml Documented by: Dexamethasone (Dexamethasone 4 Mg Tab) 6 mg PO DAILY [facility] Last Admin: 03/02/21 12:11 Dose: Not Given Documented by: Enoxaparin Sodium (Enoxaparin 40 Mg/0.4 Ml Syringe) 40 mg SUBCUT DAILY [facility] Last Admin: 03/02/21 08:08 Dose: 40 mg Documented by: Guaifenesin/Dextromethorphan (Guaifenesin/Dextromethorphan 100-10 Mg/5 Ml Soln 10 Ml Cup) 10 ml PO Q4H PRN PRN Reason: Cough Last Admin: 02/23/21 06:14 Dose: 10 ml Documented by: Propofol (Diprivan 100 Ml) 100 mls @ 1.715 mls/hr IV TITRATE MONIQUE; Protocol Last Titration: 03/02/21 14:55 Dose: 65 mcg/kg/min, 22.29 mls/hr Documented by: Norepinephrine Bitartrate (Norepinephr-0.9% Nacl 4 Mg/250) 4 mg in 250 mls @ 7.5 mls/hr IV TITRATE MONIQUE; Protocol Last Titration: 03/02/21 13:56 Dose: 8 mcg/min, 30 mls/hr Documented by: Fentanyl Citrate 2,500 mcg/ (Premix) 250 mls @ 2.5 mls/hr IV TITRATE MONIQUE; Protocol Last Titration: 03/02/21 13:45 Dose: 5 mls/hr, 5 mls/hr Documented by: Levofloxacin (Levofloxacin 750 Mg Tab) 750 mg PO Q24H MONIQUE Last Admin: 03/02/21 12:11 Dose: Not Given Documented by: Levothyroxine Sodium (Levothyroxine 75 Mcg Tab) 75 mcg PO ACBREAKFAST [facility] Last Admin: 03/02/21 12:11 Dose: Not Given Documented by: Melatonin (Melatonin 3 Mg Tab) 6 mg PO BEDTIME PRN PRN Reason: Insomnia Last Admin: 03/01/21 20:02 Dose: 6 mg Documented by: Nystatin (Nystatin Topical Powder 15 Gm Bottle) 0 gm TOP TID PRN PRN Reason: Other Last Admin: 03/01/21 20:00 Dose: 1 applic Documented by: Ondansetron HCl (Ondansetron 4 Mg/2 Ml Sdv) 4 mg IVPUSH Q4H PRN PRN Reason: Nausea/Vomiting Pantoprazole Sodium (Pantoprazole 40 Mg Tab.Cr) 40 mg PO DAILY [facility] Last Admin: 03/02/21 12:12 Dose: Not Given Documented by: Sodium Chloride (Sodium Chloride 0.9% 10 Ml Syringe) 10 ml FLUSH ASDIRECTED PRN PRN Reason: Keep Vein Open Last Admin: 02/17/21 22:52 Dose: 10 ml Documented by: Sodium Chloride (Sodium Chloride 0.9% 2.5 Ml Syringe) 2.5 ml FLUSH ASDIRECTED PRN PRN Reason: Keep Vein Open Last Admin: 02/17/21 22:53 Dose: 2.5 ml Documented by: Discontinued Medications Acetaminophen (Acetaminophen 325 Mg Tab) 650 mg PO NOW ONE Stop: 02/17/21 22:53 Last Admin: 02/17/21 22:58 Dose: 650 mg Documented by: Dexamethasone (Dexamethasone 10 Mg/Ml Sdv) 10 mg IVPUSH ONETIME ONE Stop: 02/17/21 22:36 Last Admin: 02/17/21 22:57 Dose: 10 mg Documented by: Furosemide (Furosemide 40 Mg/4 Ml Vial) 40 mg IVPUSH NOW ONE Stop: 03/02/21 09:24 Last Admin: 03/02/21 09:32 Dose: 40 mg Documented by: Remdesivir 200 mg/ Sodium (Chloride) 250 mls @ 250 mls/hr IV ONETIME ONE Stop: 02/17/21 22:38 Last Admin: 02/17/21 23:15 Dose: 250 mls/hr Documented by: Lactated Ringer's (Ringers, Lactated) 1,000 mls @ 999 mls/hr IV .BOLUS MONIQUE Last Admin: 02/17/21 22:59 Dose: 999 mls/hr Documented by: Remdesivir 100 mg/ Sodium (Chloride) 100 mls @ 100 mls/hr IV Q24H MONIQUE Stop: 02/21/21 22:59 Last Admin: 02/21/21 21:56 Dose: 100 mls/hr Documented by: Pantoprazole Sodium 40 mg/ (Sodium Chloride) 10 mls @ 300 mls/hr IV DAILY MONIQUE Ceftriaxone Sodium/Dextrose 1 (gm/ Premix) 50 mls @ 100 mls/hr IV Q24H [facility] Last Admin: 02/22/21 08:48 Dose: 100 mls/hr Documented by: Pantoprazole Sodium 40 mg/ (Sodium Chloride) 10 mls @ 300 mls/hr IV DAILY MONIQUE Last Admin: 02/28/21 07:59 Dose: 300 mls/hr Documented by: Potassium Chloride 40 meq/ (Sodium Chloride) 520 mls @ 130 mls/hr IV ONETIME ONE Stop: 02/21/21 12:29 Last Admin: 02/21/21 11:22 Dose: 130 mls/hr Documented by: Propofol (Diprivan 100 Ml) Confirm Administered Dose 100 mls @ as directed .ROUTE .STK-MED ONE Stop: 03/02/21 10:55 Last Admin: 03/02/21 12:51 Dose: Not Given Documented by: Iopamidol (Iopamidol 755 Mg/Ml 100 Ml Bottle) 100 ml IVPUSH ONETIME ONE Stop: 02/17/21 23:51 Last Admin: 02/18/21 00:44 Dose: 100 ml Documented by: Lorazepam (Lorazepam 2 Mg/Ml Sdv) 1 mg IVPUSH ONETIME PRN PRN Reason: Anxiety Last Admin: 02/27/21 21:15 Dose: 1 mg Documented by: Lorazepam (Lorazepam 2 Mg/Ml Sdv) 0.5 mg IVPUSH ONETIME STA Stop: 03/02/21 05:16 Last Admin: 03/02/21 05:34 Dose: 0.5 mg Documented by: Magnesium Oxide (Magnesium Oxide 400 Mg Tab) 400 mg PO BID MONIQUE Stop: 02/23/21 09:01 Last Admin: 02/23/21 09:14 Dose: 400 mg Documented by: Pantoprazole Sodium (Pantoprazole 40 Mg Vial) Confirm Administered Dose 40 mg .ROUTE .STK-MED ONE Stop: 02/20/21 08:13 Last Admin: 02/20/21 09:14 Dose: Not Given Documented by: Potassium Chloride (Potassium Chloride 20 Meq Tab.Er) 40 meq PO BID MONIQUE Stop: 02/20/21 17:00 Last Admin: 02/20/21 09:14 Dose: Not Given Documented by: Potassium Chloride (Potassium Chloride 20 Meq Tab.Er) 40 meq PO ONETIME ONE Stop: 02/21/21 08:31 Last Admin: 02/21/21 10:07 Dose: 40 meq Documented by: Potassium Chloride (Potassium Chloride 20 Meq Tab.Er) 40 meq PO ONETIME ONE Stop: 02/23/21 08:31 Last Admin: 02/23/21 09:13 Dose: 40 meq Documented by: Sodium Phosphate (Phosphorus #1 250 Mg Tab) 250 mg PO QID MONIQUE Stop: 02/23/21 09:00 Last Admin: 02/23/21 06:14 Dose: 250 mg Documented by: - Exam Urinary Catheter Total Time: 5Days 20Hours General: Alert, Oriented Lungs: Normal Respiratory Effort, Rhonchi GI/Abdominal Exam: Soft, Non-Tender, No Distention Extremities: Non-Tender, No Pedal Edema Skin: Warm, Dry, Intact Neurological: No New Focal Deficit - Patient Data Lab Results Last 24 hrs: Laboratory Results - last 24 hr 03/02/21 03/02/21 03/02/21 Range/Units 10:14 10:15 10:50 WBC 29.19 H (4.0-11.0) K/uL RBC 5.36 (4.30-5.90) M/uL Hgb 17.0 H (12.0-16.0) g/dL Hct 48.4 H (36.0-46.0) % MCV 90.3 (80.0-98.0) fL MCH 31.7 (27.0-32.0) pg MCHC 35.1 (31.0-37.0) g/dL RDW Std Deviation 46.9 (28.0-62.0) fl RDW Coeff of Lorelei 14 (11.0-15.0) % Plt Count 136 L (150-400) K/uL MPV 11.00 (7.40-12.00) fL Add Manual Diff YES Neutrophils % (Manual) 90 H (48.0-80.0) % Band Neutrophils % 2 % Lymphocytes % (Manual) 7 L (16.0-40.0) % Eosinophils % (Manual) 1 (0.0-7.0) % Nucleated RBC % 0.0 /100WBC Absolute Seg Neuts 26.3 H (1.4-5.7) Band Neutrophils # 0.6 Lymphocytes # (Manual) 2.0 (0.6-2.4) Eosinophils # (Manual) 0.3 (0.0-0.7) Nucleated RBCs # 0 K/uL ABG pH 7.46 H (7.35-7.45) ABG pCO2 28 L (35-45) mmHG ABG pO2 50 L (80-105) mmHG ABG HCO3 20 L (22-26) mEq/L ABG Total CO2 16.8 L (23-27) mmol/L ABG Base Excess -2.5 L (-2.0-3.0) Sodium 136 (136-145) mmol/L Potassium 4.0 (3.5-5.1) mmol/L Chloride 99 (98-107) mmol/L Carbon Dioxide 17.7 L (21.0-32.0) mmol/L BUN 23 H (7.0-18.0) mg/dL Creatinine 0.7 (0.6-1.0) mg/dL Est Cr Clr Drug Dosing 49.85 mL/min Estimated GFR (MDRD) > 60.0 ml/min Glucose 117 H (74-106) mg/dL Calcium 8.7 (8.5-10.1) mg/dL Total Bilirubin 0.9 (0.2-1.0) mg/dL AST 131 H (15-37) IU/L ALT 285 H (14-63) IU/L Alkaline Phosphatase 76 (46-116) U/L Total Protein 7.3 (6.4-8.2) g/dL Albumin 2.0 L (3.4-5.0) g/dL Globulin 5.3 H (2.6-4.0) g/dL Albumin/Globulin Ratio 0.4 L (0.9-1.6) Result Diagrams: 03/02/21 10:14 03/02/21 10:50 Sepsis Event Note - Evaluation Sepsis Screening Result: Possible Sepsis Risk - Focused Exam Vital Signs: Vital Signs Temp Resp BP BP Pulse Ox 03/02/21 12:00 36.1 C 33 H 86/46 L 71/51 L 94 L 03/02/21 11:00 40 H 143/64 H 87 L 03/02/21 10:00 37 H 88 L 03/02/21 09:00 37 H 112/76 87 L 03/02/21 08:00 36 C L 29 H 123/71 88 L 03/02/21 07:00 22 H 107/58 L 89 L 03/02/21 06:00 19 148/61 H 90 L 03/02/21 05:00 36 H 136/71 88 L 03/02/21 04:00 36.1 C 31 H 122/63 88 L - Problem List & Annotations (1) Pneumonia due to COVID-19 virus SNOMED Code(s): 014812822197280661 Code(s): U07.1 - COVID-19; J12.82 - PNEUMONIA DUE TO CORONAVIRUS DISEASE 2019 Status: Acute Current Visit: Yes (2) Respiratory failure with hypoxia SNOMED Code(s): 77516394443787880 Code(s): J96.91 - RESPIRATORY FAILURE, UNSPECIFIED WITH HYPOXIA Status: Acute Current Visit: Yes (3) UTI (urinary tract infection) SNOMED Code(s): 67546147 Code(s): N39.0 - URINARY TRACT INFECTION, SITE NOT SPECIFIED Status: Acute Current Visit: Yes - Problem List Review Problem List Initiated/Reviewed/Updated: Yes - My Orders Last 24 Hours: My Active Orders 03/02/21 10:59 RASS Sedation Scale [RC] ASDIRECTED Desired Level of Sedation (RASS) [AST] Click to Edit 03/02/21 11:00 propofoL [Diprivan 100 ML] 100 ml IV TITRATE 03/02/21 11:15 Norepinephrine Bit/0.9 % NaCl [Norepinephr-0.9% NaCl 4 mg/250] 4 mg in 250 ml IV TITRATE fentaNYL/Normal Saline [fentaNYL 2500 MCG in NS 250 ML (10 MCG/ML)] 2,500 mcg Premix Bag 1 bag IV TITRATE 03/02/21 15:03 CXR [Chest 1V Frontal] [CR] Routine - Plan Plan:: 80 yo female admitted with COVID pneumonia with acute hypoxic respiratory failure hypoxic respiratory failure: became tachypneic with shallow breathing this morning, patient was intubated and is now on vent, CXR shows possible small pneumothorax so will repeat CXR. patient on propofol and fentanyl for sedation. Patient is on levophed and vassopressin. COVID: Patient completed remdesivir. Continue dexamethasone. Continue Levaquin for UTI and possible pneumonia Continue Lovenox for DVT prophylaxis Patient would benefit for transfer to a higher level of care when bed is available. All ICU beds in [facility] are full. Family has been informed
[2021-03-02] MEDS ORDERED: Piperacillin/Tazobactam 3.375 GM in Sodium Chloride 0.9% 50 ML IV SCH (16:00)
--- NOTE | 2021-03-02 16:24 | CR ---
HISTORY: Pneumothorax. TECHNIQUE: One view chest. COMPARISON: 03/02/2021. FINDINGS: The right-sided pneumothorax has mildly enlarged from the prior radiograph and is now likely moderate in size. There is progressive infiltrate or atelectasis within the right lung. No change in left lung the extensive infiltrate. No left-sided pneumothorax. Heart size stable. Endotracheal tube terminates approximately 5 cm above the glenn. Right internal jugular catheter tip terminates at the atrial-caval junction. IMPRESSION: 1. Mild enlargement of a right-sided pneumothorax which is up to moderate in size. 2. Progressive opacity within the right lung which may reflect a combination of infiltrate and atelectasis. 3. No change in extensive left lung infiltrate. Dictated by French Chairez MD @ 03/02/2021 4:22:17 PM (Electronically Signed)
[2021-03-02] MEDS ORDERED: Sodium Chloride 0.9% 1,000 ML IV STA (16:29)
[2021-03-02] MEDS ORDERED: VANCOmycin 1.5 GM/300 ML 1.5 GM in Premix Bag 1 BAG IV ONE (17:15)
--- NOTE | 2021-03-02 17:38 | PCM.SN.2 ---
- Free Text/Narrative Note: I spoke with family regarding patient's declining status. That her blood pressure's are dropping and she has developed a pneumothorax. Her prognosis is very poor. Family does not want a chest tube and is wanting to switch her to palliative care. We will keep vasopressors on until family can visit. Time Documentation
[2021-03-02] MEDS ORDERED: Scopolamine 1.5 MG Transdermal Patch TRDERM PRN (17:51)
[2021-03-02] MEDS ORDERED: LORazepam 2 MG/ML SDV ONE (19:25)
[2021-03-02] MEDS ORDERED: LORazepam 2 MG/ML SDV IVPUSH PRN (21:09)
[2021-03-02] MEDS ORDERED: Morphine 2 MG/ML SYRINGE IVPUSH PRN (21:11)
--- NOTE | 2021-03-03 11:23 | PN ---
THC Physician - Brief Progress [id number]/31/2021 17:05[facility] Scot Hankins, [place] - YVONNE (ERNESTINE) - TAMANNA GENTILE, AMBIKA+Date of Service 03/02/2021 17:05HPI/ Events of Note patient is hypotensive. patient was hypoxicgive L NS. got a call from hospitalist for cxr showing moderate ptxnot able to see cxr myself because of remote system not working for mepatient needs chest tube harvey. keep on suction -20patient prognosis is extremely baddecrease vt to 380 and i ncrease rate to 18abg in one hour.Interventions Major-Respiratory failure - evaluation and management Minor-Communication with other healthcare providers and/or family
--- NOTE | 2021-03-03 11:23 | PN ---
TABBY Physician - Brief Progress [id number]/31/2021 17:20[facility] Scot Hankins, LISA - YVONNE (ERNESTINE) - TAMANNA GENTILE, AMBIKA+Date of Service 03/02/2021 17:20HPI/ Events of Note I reviewed the chest x-ray myself primarily.Patient has been significant right-sided p neumothoraxThis is a very poor prognostication factorsI did call back and I discussed with the bedsid e nurseFamily decided to move towards palliative careI definitely agree that this is a right option f or the patientChest tube is be indicated if the patient's family are moving to towards palliative car eInterventions Minor-Communication with other healthcare providers and/or family
--- NOTE | 2021-03-03 11:23 | PN ---
THC Physician - Brief Progress [id number]/31/2021 10:33[facility] Scot Hankins, LISA - YVONNE (ERNESTINE) - TAMANNA GENTILE, AMBIKA+Date of Service 03/02/2021 10:33HPI/ Events of Note Patient has increased work of breathingPatient was seen on cameraPatient is breathing in the 40sPatient desaturated to mid 80sRecommend to move forward with intubation versus comfort care Arterial blood gas will give an idea about her actual PO2 but should not change decision of intubatio n versus not. Patient needs to have intubation because of work of breathing.Interventions Major-Resp iratory failure - evaluation and managementMinor-Communication with other healthcare providers and/or family
--- NOTE | 2021-03-16 21:50 | PCM.DCSUM1 ---
Discharge Summary - Hospital Course Free Text/Narrative:: 80-year-old female with a history of hypothyroidism presented to the ER with shortness of breath. She lives at [place]. Her family noticed increased shortness of breath. Patient was diagnosed 5 days ago with COVID-19. She experienced generalized weakness, decreased oral intake, and loss of taste and smell. She had nausea but no vomiting or diarrhea. She was brought to the ER by her son Jose with concerns of increasing shortness of breath. Patient denied fever, chills, chest pain, palpitations, abdominal pain, dysuria, frequency, pain or swelling in her lower extremities. Patient denies smoking. Patient is not vaccinated for COVID-19. ED course: Temperature 100.7. Pulse 91. Respiratory rate 20. Blood pressure 126/55. Pulse ox 84%. Patient placed on 4.5 L nasal cannula and oxygen saturation was 91%. Patient received 1 L of lactated Ringer's due to dry mucous membranes. WBC 8.47. Hgb 14.6. Platelets 204. Sodium 135. Potassium 3.7. Chloride 96. Bicarb 25.1. BUN 11. Creatinine 0.7. Glucose 143. Calcium 7.6. AST 160. ALT 110. Alk phos 41. Troponin negative. SARS-CoV-2 positive. CTA chest: No pulmonary embolism. Prominent Covid pneumonia. EKG showed nonspecific STT wave abnormalities. Normal axis. No evidence of ST elevation MD. Normal sinus rhythm. Urinalysis showed leukocyte esterase positive. Patient started on remdesivir and Decadron, Lovenox for dvt prophylaxis, Patient had increased oxygen requirements and was switched to Vapotherm . She continued to need more Fi02 Repeat chest x-ray yesterday showed worsening. She was started on levofloxacin, patient was switched to icu and started on NIV, family was informed of the status daily, eventually her respiratory status declined and she had to be intubated, post intubation patient developed a pneumothorax which was increasing in size, patients poor progress was discussed with family and need for chest tube, eventually family decided to keep patient on palliative/comfort care status with terminal intubation. Patient was terminally extubated and soon after. - Discharge Data Discharge Date: 03/02/21 Discharge Disposition: 20 Condition: - Referral to Home Health Primary Care Physician: [facility] - Discharge Diagnosis/Problem(s) (1) Hypothyroidism SNOMED Code(s): 75099449 ICD Code: E03.9 - HYPOTHYROIDISM, UNSPECIFIED Status: Acute (2) Pneumonia due to COVID-19 virus SNOMED Code(s): 350773703709586209 ICD Code: U07.1 - COVID-19; J12.82 - PNEUMONIA DUE TO CORONAVIRUS DISEASE 2018 Status: Acute (3) Respiratory failure with hypoxia SNOMED Code(s): 42828933275364902 ICD Code: J96.91 - RESPIRATORY FAILURE, UNSPECIFIED WITH HYPOXIA Status: Acute - Discharge Plan Home Medications: Home Meds Aspirin 81 mg PO DAILY 02/17/21 [History] Levothyroxine 75 mcg PO ACBREAKFAST 02/17/21 [History] Lovastatin 40 mg PO BEDTIME 02/17/21 [History] Patient Handouts: COVID-19, 10 Things You Can Do to Manage Your COVID-19 Symptoms at Home - [facility] (11/15/2020), COVID-19: How to Protect Yourself and Others - [facility], Frequently Asked Questions About COVID-19 Vaccination - [facility] (01/03/2021), Infection Prevention in the Home, COVID-19: Quarantine vs. Isolation - [facility] (04/18/2020) Referrals: Jesus Mercado MD [Physician] - 03/10/21 1:30 pm - Discharge Summary/Plan Comment DC Time >30 min.: Yes Total # of Minutes for Discharge Time: 35 - Patient Data Vitals - Most Recent: Last Vital Signs Temp 35.5 C L 03/02/21 16:00 Pulse 103 H 02/24/21 18:00 Resp 14 03/02/21 21:00 BP 30/25 L 03/02/21 21:00 Pulse Ox 50 L 03/02/21 20:00 Weight - Most Recent: 57.153 kg Med Orders - Current: Current Medications Discontinued Medications Acetaminophen (Acetaminophen 325 Mg Tab) 650 mg PO NOW ONE Stop: 02/17/21 22:53 Last Admin: 02/17/21 22:58 Dose: 650 mg Documented by: Acetaminophen (Acetaminophen 325 Mg Tab) 650 mg PO Q4H PRN PRN Reason: Pain/Fever Last Admin: 03/01/21 20:36 Dose: 650 mg Documented by: Albuterol/Ipratropium (Albuterol/Ipratropium 4 Gm Inhalation [place]) 0 gm INH Q4H [facility] Last Admin: 03/02/21 21:14 Dose: Not Given Documented by: Albuterol/Ipratropium (Albuterol/Ipratropium 3.0-0.5 Mg/3 Ml Neb Soln) 3 ml NEB Q4HRRT PRN PRN Reason: Shortness of Breath Last Admin: 03/02/21 08:08 Dose: 3 ml Documented by: Dexamethasone (Dexamethasone 10 Mg/Ml Sdv) 10 mg IVPUSH ONETIME ONE Stop: 02/17/21 22:36 Last Admin: 02/17/21 22:57 Dose: 10 mg Documented by: Dexamethasone (Dexamethasone 4 Mg Tab) 6 mg PO DAILY [facility] Last Admin: 03/02/21 12:11 Dose: Not Given Documented by: Enoxaparin Sodium (Enoxaparin 40 Mg/0.4 Ml Syringe) 40 mg SUBCUT DAILY [facility] Last Admin: 03/02/21 08:08 Dose: 40 mg Documented by: Furosemide (Furosemide 40 Mg/4 Ml Vial) 40 mg IVPUSH NOW ONE Stop: 03/02/21 09:24 Last Admin: 03/02/21 09:32 Dose: 40 mg Documented by: Guaifenesin/Dextromethorphan (Guaifenesin/Dextromethorphan 100-10 Mg/5 Ml Soln 10 Ml Cup) 10 ml PO Q4H PRN PRN Reason: Cough Last Admin: 02/23/21 06:14 Dose: 10 ml Documented by: Remdesivir 200 mg/ Sodium (Chloride) 250 mls @ 250 mls/hr IV ONETIME ONE Stop: 02/17/21 22:38 Last Admin: 02/17/21 23:15 Dose: 250 mls/hr Documented by: Lactated Ringer's (Ringers, Lactated) 1,000 mls @ 999 mls/hr IV .BOLUS [facility] Last Admin: 02/17/21 22:59 Dose: 999 mls/hr Documented by: Remdesivir 100 mg/ Sodium (Chloride) 100 mls @ 100 mls/hr IV Q24H [facility] Stop: 02/21/21 22:59 Last Admin: 02/21/21 21:56 Dose: 100 mls/hr Documented by: Pantoprazole Sodium 40 mg/ (Sodium Chloride) 10 mls @ 300 mls/hr IV DAILY [facility] Ceftriaxone Sodium/Dextrose 1 (gm/ Premix) 50 mls @ 100 mls/hr IV Q24H [facility] Last Admin: 02/22/21 08:48 Dose: 100 mls/hr Documented by: Pantoprazole Sodium 40 mg/ (Sodium Chloride) 10 mls @ 300 mls/hr IV DAILY [facility] Last Admin: 02/28/21 07:59 Dose: 300 mls/hr Documented by: Potassium Chloride 40 meq/ (Sodium Chloride) 520 mls @ 130 mls/hr IV ONETIME ONE Stop: 02/21/21 12:29 Last Admin: 02/21/21 11:22 Dose: 130 mls/hr Documented by: Propofol (Diprivan 100 Ml) Confirm Administered Dose 100 mls @ as directed .ROUTE .STK-MED ONE Stop: 03/02/21 10:55 Last Admin: 03/02/21 12:51 Dose: Not Given Documented by: Propofol (Diprivan 100 Ml) 100 mls @ 1.715 mls/hr IV TITRATE [facility]; Protocol Last Admin: 03/02/21 17:25 Dose: 65 mcg/kg/min, 22.29 mls/hr Documented by: Norepinephrine Bitartrate (Norepinephr-0.9% Nacl 4 Mg/250) 4 mg in 250 mls @ 7.5 mls/hr IV TITRATE [facility]IQUE; Protocol Last Admin: 03/02/21 17:29 Dose: 10 mcg/min, 37.5 mls/hr Documented by: Fentanyl Citrate 2,500 mcg/ (Premix) 250 mls @ 2.5 mls/hr IV TITRATE [facility]QUE; Protocol Last Titration: 03/02/21 21:25 Dose: 0 mls/hr, 0 mls/hr Documented by: Vasopressin 100 units/ Sodium (Chloride) 100 mls @ 2.4 mls/hr IV TITRATE [facility]; Protocol Last Admin: 03/02/21 16:30 Dose: 0.04 units/min, 2.4 mls/hr Documented by: Sodium Chloride (Normal Saline) 1,000 mls @ 999 mls/hr IV STAT STA Stop: 03/02/21 17:29 Last Admin: 03/02/21 16:29 Dose: 999 mls/hr Documented by: Piperacillin Sod/Tazobactam (Sod 3.375 gm/ Sodium Chloride) 50 mls @ 100 mls/hr IV Q6H [facility] Vancomycin HCl 1 gm/ Sodium (Chloride) 250 mls @ 167 mls/hr IV Q24H [facility] Vancomycin HCl 1.5 gm/ Premix 300 mls @ 200 mls/hr IV ONETIME ONE Stop: 03/02/21 18:44 Iopamidol (Iopamidol 755 Mg/Ml 100 Ml Bottle) 100 ml IVPUSH ONETIME ONE Stop: 02/17/21 23:51 Last Admin: 02/18/21 00:44 Dose: 100 ml Documented by: Levofloxacin (Levofloxacin 750 Mg Tab) 750 mg PO Q24H [facility] Last Admin: 03/02/21 12:11 Dose: Not Given Documented by: Levothyroxine Sodium (Levothyroxine 75 Mcg Tab) 75 mcg PO ACBREAKFAST [facility] Last Admin: 03/02/21 12:11 Dose: Not Given Documented by: Lorazepam (Lorazepam 2 Mg/Ml Sdv) 1 mg IVPUSH ONETIME PRN PRN Reason: Anxiety Last Admin: 02/27/21 21:15 Dose: 1 mg Documented by: Lorazepam (Lorazepam 2 Mg/Ml Sdv) 0.5 mg IVPUSH ONETIME STA Stop: 03/02/21 05:16 Last Admin: 03/02/21 05:34 Dose: 0.5 mg Documented by: Lorazepam (Lorazepam 2 Mg/Ml Sdv) Confirm Administered Dose 2 mg .ROUTE .STK-MED ONE Stop: 03/02/21 19:26 Last Admin: 03/02/21 19:37 Dose: 2 mg Documented by: Lorazepam (Lorazepam 2 Mg/Ml Sdv) 2 mg IVPUSH Q2H PRN PRN Reason: Agitation Magnesium Oxide (Magnesium Oxide 400 Mg Tab) 400 mg PO BID [facility] Stop: 02/23/21 09:01 Last Admin: 02/23/21 09:14 Dose: 400 mg Documented by: Melatonin (Melatonin 3 Mg Tab) 6 mg PO BEDTIME PRN PRN Reason: Insomnia Last Admin: 03/01/21 20:02 Dose: 6 mg Documented by: Morphine Sulfate (Morphine 2 Mg/Ml Syringe) 1 mg IVPUSH Q1H PRN PRN Reason: air hunger Nystatin (Nystatin Topical Powder 15 Gm Bottle) 0 gm TOP TID PRN PRN Reason: Other Last Admin: 03/01/21 20:00 Dose: 1 applic Documented by: Ondansetron HCl (Ondansetron 4 Mg/2 Ml Sdv) 4 mg IVPUSH Q4H PRN PRN Reason: Nausea/Vomiting Pantoprazole Sodium (Pantoprazole 40 Mg Vial) Confirm Administered Dose 40 mg .ROUTE .STK-MED ONE Stop: 02/20/21 08:13 Last Admin: 02/20/21 09:14 Dose: Not Given Documented by: Pantoprazole Sodium (Pantoprazole 40 Mg Tab.Cr) 40 mg PO DAILY [facility] Last Admin: 03/02/21 12:12 Dose: Not Given Documented by: Potassium Chloride (Potassium Chloride 20 Meq Tab.Er) 40 meq PO BID [facility] Stop: 02/20/21 17:00 Last Admin: 02/20/21 09:14 Dose: Not Given Documented by: Potassium Chloride (Potassium Chloride 20 Meq Tab.Er) 40 meq PO ONETIME ONE Stop: 02/21/21 08:31 Last Admin: 02/21/21 10:07 Dose: 40 meq Documented by: Potassium Chloride (Potassium Chloride 20 Meq Tab.Er) 40 meq PO ONETIME ONE Stop: 02/23/21 08:31 Last Admin: 02/23/21 09:13 Dose: 40 meq Documented by: Scopolamine (Scopolamine 1.5 Mg Transdermal Patch) 1.5 mg TRDERM Q72H PRN PRN Reason: secretions Last Admin: 03/02/21 18:48 Dose: 1.5 mg Documented by: Sodium Chloride (Sodium Chloride 0.9% 10 Ml Syringe) 10 ml FLUSH ASDIRECTED PRN PRN Reason: Keep Vein Open Last Admin: 02/17/21 22:52 Dose: 10 ml Documented by: Sodium Chloride (Sodium Chloride 0.9% 2.5 Ml Syringe) 2.5 ml FLUSH ASDIRECTED PRN PRN Reason: Keep Vein Open Last Admin: 02/17/21 22:53 Dose: 2.5 ml Documented by: Sodium Phosphate (Phosphorus #1 250 Mg Tab) 250 mg PO QID [facility] Stop: 02/23/21 09:00 Last Admin: 02/23/21 06:14 Dose: 250 mg Documented by: Vancomycin HCl (Pharmacy To Dose - Vancomycin) 1 dose .XX ASDIRECTED [facility] Discharge Operative/Procedures - Procedures Performed Intubation Indication: Respiratory Failure Arterial Line Indication: hemodynamic monitoring
== END 2021-03-02 22:02 | disposition expired | DRG 208 ==
LOC: MW.ED 21:42 → MW.MS 02-18 01:29 → MW.ICU 02-24 14:04
PROVIDERS: ADMIT Student in an Organized Health Care Education/Training Program; ATTEND Student in an Organized Health Care Education/Training Program
PROC: XW033E5 Introduction of Remdesivir Anti-infective into Peripheral Vein, Percutaneous Approach, New Technology Group 5 (ICD-10-PCS; principal; 2021-02-17)
PROC: 8E0ZXY6 Isolation (ICD-10-PCS; 2021-02-17)
PROC: 3E0333Z Introduction of Anti-inflammatory into Peripheral Vein, Percutaneous Approach (ICD-10-PCS; 2021-02-17)
PROC: 5A09357 Assistance with Respiratory Ventilation, Less than 24 Consecutive Hours, Continuous Positive Airway Pressure (ICD-10-PCS; 2021-02-28)
PROC: 5A1935Z Respiratory Ventilation, Less than 24 Consecutive Hours (ICD-10-PCS; 2021-03-02)
PROC: 3E033XZ Introduction of Vasopressor into Peripheral Vein, Percutaneous Approach (ICD-10-PCS; 2021-03-02)
PROC: 03HC33Z Insertion of Infusion Device into Left Radial Artery, Percutaneous Approach (ICD-10-PCS; 2021-03-02)
PROC: 0BH18EZ Insertion of Endotracheal Airway into Trachea, Via Natural or Artificial Opening Endoscopic (ICD-10-PCS; 2021-03-02)
PROC: 02H633Z Insertion of Infusion Device into Right Atrium, Percutaneous Approach (ICD-10-PCS; 2021-03-02)
DX: U07.1 COVID-19 (principal); J12.89 Other viral pneumonia; J12.82 Pneumonia due to coronavirus disease 2019; J96.01 Acute respiratory failure with hypoxia; N39.0 Urinary tract infection, site not specified; J93.9 Pneumothorax, unspecified; E78.00 Pure hypercholesterolemia, unspecified; E03.9 Hypothyroidism, unspecified; Z51.5 Encounter for palliative care; M19.90 Unspecified osteoarthritis, unspecified site; E86.0 Dehydration; D69.6 Thrombocytopenia, unspecified; I10 Essential (primary) hypertension; Z79.82 Long term (current) use of aspirin; Z79.890 Hormone replacement therapy; Z79.899 Other long term (current) drug therapy
CPT/HCPCS: 36415; 71275; 80053; 81001; 82248; 84484; 85025; 87086; 87804 ×2; 93005; 96374; 99285; A9270; J1100; J7050; J7120; Q9967; U0002; 31500; 36600; 36620; 51702; 71045; 71045-26; 80048; 82803; 83735; 84100; 84145; 86140; 93010; 94640; 94660; 99100; 99284; C9113; J0696; J1650; J1940; J2060; J2704; J3480; J3490; J7030; J7040; J7620-GY; J8540